=== PATIENT | male | born 1960 | race Caucasian/White ===

== ENCOUNTER 2017-01-12 09:00 | Emergency (ER) | payer OTHER ==
[~2017-01-12] VITALS: Ht 170.2 cm; Wt 63.6 kg
[~2017-01-12 09:00] MED LIST: AMOX1TAB16 PO
[2017-01-12] MEDS ORDERED: SODIUM CHLORIDE 0.9% 1,000 ML IV ONE (09:30)
[2017-01-12 10:26] LABS: HEMATOCRIT 32.1 % (41-53); HEMOGLOBIN 9.7 g/dL (13.5-17.5); MEAN CORPUSCULAR HGB CONC 30.3 G/dL (31.0-37.0); MEAN CORPUSCULAR VOLUME 76 fL (80-100); RED BLOOD CELL COUNT(AUTO) 4.24 MIL/uL (4.50-5.90); RED CELL DISTRIBUTION WIDTH 23.9 % (11.5-14.5); WHITE BLOOD COUNT (AUTO) 4.9 K/uL (4.5-11.0)
[2017-01-12 10:49] LABS: ALANINE AMINOTRANSFERASE 59 U/L (12-78); ALBUMIN 2.7 g/dL (3.4-5.0); ANION GAP 13 mmol/L (8-16); ASPARTATE AMINOTRANSFERASE 135 U/L (15-37); BILIRUBIN,TOTAL 0.5 mg/dL (0.1-1.0); CALCIUM, TOTAL 7.5 mg/dL (8.8-10.5); CARBON DIOXIDE 28 mmol/L (22-29); CHLORIDE 103 mmol/L (98-107); GLOMERULAR FILTR. RATE CALC > 60 mL/min (>60); SODIUM SERUM 144 mmol/L (136-145); TOTAL PROTEIN, SERUM 7.9 g/dL (6.4-8.2); UREA NITROGEN, BLOOD 5 mg/dL (7-18)
[2017-01-12 11:13] LABS: EOSINOPHILS % (MANUAL) 1 % (1-6); LYMPHOCYTES % (MANUAL) 30 % (22-44); TOTAL CELLS COUNTED 100
[2017-01-12 11:14] LABS: PLATELET COUNT (AUTO) 88 K/uL (150-450)
[2017-01-12] MEDS ORDERED: MAGNESIUM SULFATE 2 GM, MVI, ADULT NO.1 WITH VIT K 10 ML, THIAMINE HCL 100 MG, FOLIC AC... IV ONE ×5 (11:45)
[2017-01-12] MEDS ORDERED: POTASSIUM CHLORIDE 20 MEQ ER TABLET PO ONE (12:15)
[2017-01-12 16:35] VITALS: BP 105/63
== END 2017-01-12 17:59 | disposition home or self-care (01) ==
LOC: EEVIPCON 09:02 → EMS 09:02
DX: F10.229 Alcohol dependence with intoxication, unspecified (principal); E87.6 Hypokalemia; K21.9 Gastro-esophageal reflux disease without esophagitis; F17.210 Nicotine dependence, cigarettes, uncomplicated; Z91.030 Bee allergy status; Y90.8 Blood alcohol level of 240 mg/100 ml or more
CPT/HCPCS: 36415; 80053; 80307; 85025; 96361; 96365; 96366; 99285; 99406; G0480; J3411; J3475; J3490 ×2; J7030

== ENCOUNTER 2017-01-20 04:06 | Inpatient (IN) | payer OTHER ==
[2017-01-20] VITALS (10 sets, daily range): BP systolic 110–134; BP diastolic 53–89
[~2017-01-20] VITALS: Ht 177.8 cm; Wt 63.6 kg
[2017-01-20] MEDS ORDERED: LORazepam 2 MG/ML VIAL IVP ONE ×2 (10:30→12:30)
[2017-01-20] MEDS ORDERED: MAGNESIUM SULFATE 2 GM, MVI, ADULT NO.1 WITH VIT K 10 ML, THIAMINE HCL 100 MG, FOLIC AC... IV ONE ×5 (10:30)
[2017-01-20 11:05] LABS: APPEARANCE,URINE CLEAR (CLEAR); GLUCOSE, URINE (UA) NEGATIVE (NEGATIVE); KETONES,URINE NEGATIVE (NEGATIVE); LEUKOCYTE ESTERASE ,URINE NEGATIVE (NEGATIVE); OCCULT BLOOD,URINE NEGATIVE (NEGATIVE); PROTEIN,URINE POS 1+ (NEGATIVE)
[2017-01-20 11:06] LABS: ADD UA MICROSCOPIC YES
[2017-01-20 11:09] LABS: HEMATOCRIT 24.9 % (41-53); HEMOGLOBIN 7.4 g/dL (13.5-17.5); MEAN CORPUSCULAR HEMOGLOBIN 22.9 pg (26.0-34.0); MEAN CORPUSCULAR HGB CONC 29.9 G/dL (31.0-37.0); MEAN CORPUSCULAR VOLUME 77 fL (80-100); PLATELET COUNT (AUTO) 99 K/uL (150-450); RED BLOOD CELL COUNT(AUTO) 3.24 MIL/uL (4.50-5.90); RED CELL DISTRIBUTION WIDTH 23.8 % (11.5-14.5); WHITE BLOOD COUNT (AUTO) 6.8 K/uL (4.5-11.0)
[2017-01-20 11:21] LABS: B-TYPE NATRIURETIC PEPTIDE 131 pg/mL (0-100)
[2017-01-20 11:24] LABS: LYMPHOCYTES % (MANUAL) 5 % (22-44); TOTAL CELLS COUNTED 100
[2017-01-20 11:27] LABS: RBC,URINE None Seen /HPF (0-2); SQUAMOUS EPITHELIAL CELL,UR Rare /LPF (None Seen); WBC,URINE None Seen /HPF (0-5)
[2017-01-20 11:29] LABS: ANION GAP 10 mmol/L (8-16); CARBON DIOXIDE 29 mmol/L (22-29); CHLORIDE 100 mmol/L (98-107); CREATININE 0.58 mg/dL (0.60-1.30); GLOMERULAR FILTR. RATE CALC > 60 mL/min (>60); POTASSIUM 3.1 mmol/L (3.5-5.1); SODIUM SERUM 139 mmol/L (136-145); UREA NITROGEN, BLOOD 6 mg/dL (7-18)
[2017-01-20 11:30] LABS: ALANINE AMINOTRANSFERASE 47 U/L (12-78); ALBUMIN 2.5 g/dL (3.4-5.0); ASPARTATE AMINOTRANSFERASE 105 U/L (15-37); BILIRUBIN,TOTAL 0.7 mg/dL (0.1-1.0); CALCIUM, TOTAL 7.1 mg/dL (8.8-10.5); CREATINE KINASE, TOTAL 335 U/L (39-308)
[2017-01-20 11:41] LABS: CREATINE KINASE MB 1.7 ng/mL (0-5)
[2017-01-20] MEDS ORDERED: PANTOPRAZOLE SODIUM 40 MG/VIAL IVP ONE (12:00)
[2017-01-20] MEDS ORDERED: ALBUTEROL SULFATE 2.5 MG/0.5 ML NEB SOLUTION NEB PRN (13:30)
[2017-01-20] MEDS ORDERED: MAGNESIUM OXIDE 400 MG TABLET PO PRN (13:30)
[2017-01-20] MEDS ORDERED: ONDANSETRON HCL 4 MG/2 ML VIAL IVP PRN (13:30)
[2017-01-20] MEDS ORDERED: MAGNESIUM SULFATE 4 GM/WATER 100 ML IV PRN (13:30)
[2017-01-20] MEDS ORDERED: POTASSIUM CHL 10 MEQ/WATER 50 ML IV PRN (13:30)
[2017-01-20] MEDS ORDERED: SODIUM CHLORIDE 0.9% 1,000 ML IV ONE (13:30)
[2017-01-20] MEDS ORDERED: SODIUM CHLORIDE 0.9% 250 ML IV ONE (13:32)
[2017-01-20] MEDS ORDERED: MAGNESIUM SULFATE 4 GM/WATER 100 ML IV ONE (14:15)
[2017-01-20] MEDS: POTASSIUM CHLORIDE 20 MEQ ER TABLET PO PRN ×2 (15:39→22:37)
[2017-01-20] MEDS: ACETAMINOPHEN 325 MG TABLET PO PRN (16:16)
[2017-01-20] MEDS: DOCUSATE SODIUM 100 MG CAPSULE PO SCH (19:52)
[2017-01-20] MEDS: LORazepam 2 MG/ML VIAL IVP PRN ×2 (20:43→21:07)
[2017-01-21] MEDS: ACETAMINOPHEN 325 MG TABLET PO PRN (01:34)
[2017-01-21 04:29] VITALS: BP 104/63
[2017-01-21] MEDS: LORazepam 2 MG/ML VIAL IVP PRN ×3 (05:34→19:45)
[2017-01-21 06:08] LABS: HEMATOCRIT 24.6 % (41-53); HEMOGLOBIN 7.5 g/dL (13.5-17.5); MEAN CORPUSCULAR HEMOGLOBIN 23.6 pg (26.0-34.0); MEAN CORPUSCULAR HGB CONC 30.3 G/dL (31.0-37.0); MEAN CORPUSCULAR VOLUME 78 fL (80-100); PLATELET COUNT (AUTO) 94 K/uL (150-450); RED BLOOD CELL COUNT(AUTO) 3.16 MIL/uL (4.50-5.90); RED CELL DISTRIBUTION WIDTH 23.8 % (11.5-14.5); WHITE BLOOD COUNT (AUTO) 5.6 K/uL (4.5-11.0)
[2017-01-21 07:13] LABS: ALANINE AMINOTRANSFERASE 41 U/L (12-78); ALBUMIN 2.3 g/dL (3.4-5.0); ANION GAP 9 mmol/L (8-16); ASPARTATE AMINOTRANSFERASE 132 U/L (15-37); BILIRUBIN,TOTAL 0.8 mg/dL (0.1-1.0); CALCIUM, TOTAL 6.6 mg/dL (8.8-10.5); CARBON DIOXIDE 27 mmol/L (22-29); CHLORIDE 100 mmol/L (98-107); CREATININE 0.52 mg/dL (0.60-1.30); GLOMERULAR FILTR. RATE CALC > 60 mL/min (>60); POTASSIUM 3.4 mmol/L (3.5-5.1); SODIUM SERUM 136 mmol/L (136-145); TOTAL PROTEIN, SERUM 6.6 g/dL (6.4-8.2); UREA NITROGEN, BLOOD 4 mg/dL (7-18)
[2017-01-21] MEDS: DOCUSATE SODIUM 100 MG CAPSULE PO SCH ×3 (08:40→19:45)
[2017-01-21] MEDS: MULTIVITAMINS WITH MINERALS, THERAPEUTIC TABLET PO SCH (08:40)
[2017-01-21] MEDS: PANTOPRAZOLE SODIUM 40 MG/VIAL IVP SCH (08:40)
[2017-01-21 10:28] LABS: BAND NEUTROPHILS % (MANUAL) 2 % (1-5); LYMPHOCYTES % (MANUAL) 8 % (22-44); TOTAL CELLS COUNTED 100
[2017-01-21 10:29] LABS: RBC MORPHOLOGY COMMENT ABNORMAL R
[2017-01-21] MEDS: POTASSIUM CHLORIDE 20 MEQ ER TABLET PO PRN (11:09)
[2017-01-21] MEDS: ChlordiazePOXIDE HCL 25 MG CAPSULE PO SCH ×2 (11:09→19:45)
[2017-01-21 11:57] VITALS: BP 126/78
[2017-01-21] MEDS: MAGNESIUM SULFATE 2 GM in DEXTROSE 5%-WATER 50 ML IV PRN (12:11)
[2017-01-21 15:44] LABS: MAGNESIUM 1.2 mg/dL (1.80-2.40)
[2017-01-21 15:55] VITALS: BP 106/57
[2017-01-21] MEDS ORDERED: 0.9% SODIUM CHLORIDE 10 ML SYRINGE IVP PRN (17:30)
[2017-01-21] MEDS ORDERED: LOPERAMIDE HCL 2 MG CAPSULE PO PRN (19:15)
[2017-01-21 20:03] VITALS: BP 128/89
[2017-01-21 23:55] VITALS: BP 105/79
[2017-01-22] MEDS: LORazepam 2 MG/ML VIAL IVP PRN ×4 (00:08→22:55)
[2017-01-22 04:47] VITALS: BP 123/82
[2017-01-22 07:31] VITALS: BP 118/73
[2017-01-22] MEDS: ChlordiazePOXIDE HCL 25 MG CAPSULE PO SCH ×2 (08:17→19:55)
[2017-01-22] MEDS: PANTOPRAZOLE SODIUM 40 MG/VIAL IVP SCH (08:17)
[2017-01-22] MEDS: MAGNESIUM SULFATE 2 GM in DEXTROSE 5%-WATER 50 ML IV PRN (08:17)
[2017-01-22] MEDS: DOCUSATE SODIUM 100 MG CAPSULE PO SCH ×2 (08:17→19:56)
[2017-01-22] MEDS: MULTIVITAMINS WITH MINERALS, THERAPEUTIC TABLET PO SCH (08:17)
[2017-01-22 12:36] VITALS: BP 125/75
[2017-01-22 16:09] VITALS: BP 121/73
[2017-01-22 19:16] VITALS: BP 114/85
[2017-01-22] MEDS: ACETAMINOPHEN 325 MG TABLET PO PRN (19:55)
[2017-01-22 23:07] VITALS: BP 126/55
[2017-01-23 04:00] VITALS: BP 113/71
[2017-01-23 07:39] VITALS: BP 116/75
[2017-01-23] MEDS: DOCUSATE SODIUM 100 MG CAPSULE PO SCH (08:57)
[2017-01-23] MEDS: PANTOPRAZOLE SODIUM 40 MG/VIAL IVP SCH (08:57)
[2017-01-23] MEDS: ChlordiazePOXIDE HCL 25 MG CAPSULE PO SCH (08:57)
[2017-01-23] MEDS: MULTIVITAMINS WITH MINERALS, THERAPEUTIC TABLET PO SCH (08:57)
[2017-01-23 12:47] VITALS: BP 142/76
[2017-01-23] MEDS ORDERED: MAGOX PO (15:00)
[2017-01-23] MEDS ORDERED: POTA99TA4 PO (15:01)
[2017-01-23] MEDS ORDERED: MULT-1203 PO (15:02)
[2017-01-23 15:12] VITALS: BP 122/79
== END 2017-01-23 17:15 | disposition home or self-care (01) | DRG 775 ==
LOC: EMS 09:44 → 6N 13:57
PROVIDERS: ADMIT Internal Medicine; ATTEND Internal Medicine
PROC: 30233N1 Transfusion of Nonautologous Red Blood Cells into Peripheral Vein, Percutaneous Approach (ICD-10-PCS; principal; 2017-01-20)
DX: F10.239 Alcohol dependence with withdrawal, unspecified (principal); E43 Unspecified severe protein-calorie malnutrition; E87.8 Other disorders of electrolyte and fluid balance, not elsewhere classified; F10.229 Alcohol dependence with intoxication, unspecified; D50.9 Iron deficiency anemia, unspecified; D63.8 Anemia in other chronic diseases classified elsewhere; F20.9 Schizophrenia, unspecified; F31.9 Bipolar disorder, unspecified; K21.9 Gastro-esophageal reflux disease without esophagitis; F17.210 Nicotine dependence, cigarettes, uncomplicated; Z91.030 Bee allergy status; F19.10 Other psychoactive substance abuse, uncomplicated; R74.0 Nonspecific elevation of levels of transaminase and lactic acid dehydrogenase [LDH]; Z68.20 Body mass index [BMI] 20.0-20.9, adult; Z59.0 Homelessness; Z91.19 Patient's noncompliance with other medical treatment and regimen; Z79.899 Other long term (current) drug therapy; Y90.2 Blood alcohol level of 40-59 mg/100 ml
CPT/HCPCS: 82271; 83735; 84132; 86850; 86900; 86901; 86920; 93005; 96361; 96365; 96366; 96375; 97162; 99285; C9113; G0480; J2060; J3411; J3475; J3490; J7030; J7050; J7060; P9016

== ENCOUNTER 2017-02-25 21:08 | Inpatient (IN) | payer OTHER ==
[~2017-02-25] VITALS: Ht 177.8 cm; Wt 59.0 kg
[~2017-02-25 21:08] MED LIST changes: -AMOX1TAB16 PO; +MAGOX PO; +MULT-1203 PO; +POTA99TA4 PO
[2017-02-25 21:42] LABS: HEMATOCRIT 27.1 % (41-53); HEMOGLOBIN 8.1 g/dL (13.5-17.5); MEAN CORPUSCULAR HEMOGLOBIN 23.3 pg (26.0-34.0); MEAN CORPUSCULAR VOLUME 78 fL (80-100); PLATELET COUNT (AUTO) 132 K/uL (150-450); RED BLOOD CELL COUNT(AUTO) 3.49 MIL/uL (4.50-5.90); RED CELL DISTRIBUTION WIDTH 20.5 % (11.5-14.5); WHITE BLOOD COUNT (AUTO) 3.3 K/uL (4.5-11.0)
[2017-02-25 21:43] LABS: ANION GAP 11 mmol/L (8-16); CALCIUM, TOTAL 7.2 mg/dL (8.8-10.5); CARBON DIOXIDE 27 mmol/L (22-29); CHLORIDE 104 mmol/L (98-107); CREATININE 0.84 mg/dL (0.60-1.30); GLOMERULAR FILTR. RATE CALC > 60 mL/min (>60); POTASSIUM 3.2 mmol/L (3.5-5.1); SODIUM SERUM 142 mmol/L (136-145); UREA NITROGEN, BLOOD 10 mg/dL (7-18)
[2017-02-25 21:49] LABS: ALANINE AMINOTRANSFERASE 46 U/L (12-78); ALBUMIN 2.8 g/dL (3.4-5.0); ASPARTATE AMINOTRANSFERASE 126 U/L (15-37); BILIRUBIN,TOTAL 0.3 mg/dL (0.1-1.0); TOTAL PROTEIN, SERUM 7.2 g/dL (6.4-8.2)
[2017-02-25 22:13] LABS: RBC MORPHOLOGY COMMENT ABNORMAL R
[2017-02-25 22:18] LABS: BASOPHILS % (MANUAL) 3 % (0-2); EOSINOPHILS % (MANUAL) 1 % (1-6); LYMPHOCYTES % (MANUAL) 47 % (22-44); TOTAL CELLS COUNTED 100
[2017-02-26] VITALS (7 sets, daily range): BP systolic 104–125; BP diastolic 56–78
[2017-02-26] MEDS ORDERED: OXYGEN THERAPY IH SCH
[2017-02-26] MEDS ORDERED: 0.9% SODIUM CHLORIDE 10 ML SYRINGE IVP PRN
[2017-02-26] MEDS ORDERED: MAGNESIUM SULFATE 2 GM, MVI, ADULT NO.1 WITH VIT K 10 ML, THIAMINE HCL 100 MG, FOLIC AC... IV ONE ×5 (01:30)
[2017-02-26] MEDS ORDERED: MAGNESIUM SULFATE 2 GM in DEXTROSE 5%-WATER 50 ML IV PRN (01:45)
[2017-02-26] MEDS ORDERED: POTASSIUM CHLORIDE 20 MEQ ER TABLET PO PRN (01:45)
[2017-02-26] MEDS ORDERED: ONDANSETRON HCL 4 MG/2 ML VIAL IVP PRN ×2 (01:45)
[2017-02-26] MEDS ORDERED: ZOLPIDEM TARTRATE 5 MG TABLET PO PRN (01:45)
[2017-02-26] MEDS ORDERED: ACETAMINOPHEN 325 MG TABLET PO PRN ×2 (01:45)
[2017-02-26] MEDS ORDERED: BISACODYL 10 MG RECTAL RECTAL SUPPOSITORY PR PRN (01:45)
[2017-02-26] MEDS ORDERED: MAGNESIUM HYDROXIDE SUSPENSION 30 ML UDCUP PO PRN (01:45)
[2017-02-26] MEDS: IPRATROPIUM BROMIDE 0.5 MG/2.5 ML NEB SOLUTION NEB SCH ×4 (02:56→20:22)
[2017-02-26] MEDS: ALBUTEROL SULFATE 2.5 MG/0.5 ML NEB SOLUTION NEB SCH ×4 (02:56→20:22)
[2017-02-26] MEDS: POTASSIUM CHLORIDE 20 MEQ ER TABLET PO PRN ×2 (03:08→14:38)
[2017-02-26] MEDS: HYDROCODONE/ACETAMINOPHEN 5-325 MG TABLET PO PRN ×3 (03:15→20:02)
[2017-02-26] MEDS: PANTOPRAZOLE SODIUM 40 MG DR TABLET PO SCH (08:15)
[2017-02-26] MEDS: MethylPREDNISolone SOD SUCC 125 MG/2 ML VIAL IVP SCH ×2 (08:16→16:29)
[2017-02-26] MEDS: HEPARIN SODIUM,PORCINE 5,000 UNITS/ML VIAL SQ SCH ×2 (08:16→20:23)
[2017-02-26] MEDS ORDERED: IBUPROFEN 400 MG TABLET PO PRN (13:15)
[2017-02-26] MEDS ORDERED: KDUR20 PO (13:17)
[2017-02-26] MEDS ORDERED: LORazepam 2 MG/ML VIAL IM PRN (13:30)
[2017-02-26] MEDS ORDERED: LORazepam 2 MG/ML VIAL IVP PRN (14:45)
[2017-02-26 21:42] LABS: GLUCOSE, URINE (UA) 250 mg/dL (NEGATIVE); KETONES,URINE NEGATIVE (NEGATIVE); LEUKOCYTE ESTERASE ,URINE NEGATIVE (NEGATIVE); OCCULT BLOOD,URINE NEGATIVE (NEGATIVE); PROTEIN,URINE TRACE (NEGATIVE)
[2017-02-26 21:46] LABS: APPEARANCE,URINE CLEAR (CLEAR)
[2017-02-26 21:47] LABS: ADD UA MICROSCOPIC YES; RBC,URINE 0-2 /HPF (0-2); SQUAMOUS EPITHELIAL CELL,UR Rare /LPF (None Seen); WBC,URINE 0-2 /HPF (0-5)
[2017-02-27] MEDS: MethylPREDNISolone SOD SUCC 125 MG/2 ML VIAL IVP SCH ×3 (01:10→16:00)
[2017-02-27 04:19] VITALS: BP 117/87
[2017-02-27 05:49] LABS: HEMATOCRIT 27.7 % (41-53); HEMOGLOBIN 8.2 g/dL (13.5-17.5); MEAN CORPUSCULAR HEMOGLOBIN 22.7 pg (26.0-34.0); MEAN CORPUSCULAR HGB CONC 29.6 G/dL (31.0-37.0); MEAN CORPUSCULAR VOLUME 77 fL (80-100); PLATELET COUNT (AUTO) 108 K/uL (150-450); RED BLOOD CELL COUNT(AUTO) 3.61 MIL/uL (4.50-5.90); RED CELL DISTRIBUTION WIDTH 20.1 % (11.5-14.5); WHITE BLOOD COUNT (AUTO) 4.4 K/uL (4.5-11.0)
[2017-02-27 06:52] LABS: HEMOGLOBIN A1C 5.1 % (4.5-6.2)
[2017-02-27 07:23] LABS: ALANINE AMINOTRANSFERASE 38 U/L (12-78); ALBUMIN 2.8 g/dL (3.4-5.0); ANION GAP 6 mmol/L (8-16); ASPARTATE AMINOTRANSFERASE 56 U/L (15-37); BILIRUBIN,TOTAL 0.8 mg/dL (0.1-1.0); CALCIUM, TOTAL 7.9 mg/dL (8.8-10.5); CARBON DIOXIDE 30 mmol/L (22-29); CHLORIDE 97 mmol/L (98-107); CHOL/HDL RATIO 1.9 (4.2-7.3); CREATININE 0.69 mg/dL (0.60-1.30); GLOMERULAR FILTR. RATE CALC > 60 mL/min (>60); POTASSIUM 4.4 mmol/L (3.5-5.1); SODIUM SERUM 133 mmol/L (136-145); THYROID STIMULATING HORMONE 1.15 uIU/mL (0.36-3.74); TOTAL PROTEIN, SERUM 7.3 g/dL (6.4-8.2); UREA NITROGEN, BLOOD 7 mg/dL (7-18)
[2017-02-27 07:39] VITALS: BP 111/80
[2017-02-27] MEDS: HEPARIN SODIUM,PORCINE 5,000 UNITS/ML VIAL SQ SCH ×2 (08:15→21:00)
[2017-02-27] MEDS: PANTOPRAZOLE SODIUM 40 MG DR TABLET PO SCH (08:15)
[2017-02-27] MEDS: ALBUTEROL SULFATE 2.5 MG/0.5 ML NEB SOLUTION NEB SCH ×3 (08:42→20:23)
[2017-02-27] MEDS: IPRATROPIUM BROMIDE 0.5 MG/2.5 ML NEB SOLUTION NEB SCH ×3 (08:42→20:22)
[2017-02-27 09:57] LABS: BAND NEUTROPHILS % (MANUAL) 1 % (1-5); LYMPHOCYTES % (MANUAL) 28 % (22-44); TOTAL CELLS COUNTED 100
[2017-02-27 10:00] LABS: RBC MORPHOLOGY COMMENT ABNORMAL R
[2017-02-27 11:04] VITALS: BP 103/66
[2017-02-27] MEDS: HYDROCODONE/ACETAMINOPHEN 5-325 MG TABLET PO PRN (12:25)
[2017-02-27] MEDS ORDERED: LORazepam 2 MG/ML VIAL IM PRN (14:00)
[2017-02-27] MEDS: LORazepam 2 MG/ML VIAL IVP PRN ×3 (14:38→22:15)
[2017-02-27 15:05] VITALS: BP 122/60
[2017-02-27] MEDS: ChlordiazePOXIDE HCL 25 MG CAPSULE PO SCH (16:39)
[2017-02-27] MEDS ORDERED: DiphenhydrAMINE HCL 50 MG/ML VIAL IVP ONE (17:30)
[2017-02-27] MEDS ORDERED: HALOPERIDOL LACTATE 5 MG/ML VIAL IM ONE (17:30)
[2017-02-27] MEDS ORDERED: LORazepam 2 MG/ML VIAL IVP ONE (17:30)
[2017-02-27 20:17] VITALS: BP 118/63
[2017-02-28] VITALS (8 sets, daily range): BP systolic 105–131; BP diastolic 69–90
[2017-02-28] MEDS: MethylPREDNISolone SOD SUCC 125 MG/2 ML VIAL IVP SCH ×4 (00:25→23:22)
[2017-02-28] MEDS: ChlordiazePOXIDE HCL 25 MG CAPSULE PO SCH ×5 (00:26→23:22)
[2017-02-28] MEDS: LORazepam 2 MG/ML VIAL IVP PRN ×6 (00:26→21:46)
[2017-02-28] MEDS: HEPARIN SODIUM,PORCINE 5,000 UNITS/ML VIAL SQ SCH ×2 (08:22→21:46)
[2017-02-28] MEDS: PANTOPRAZOLE SODIUM 40 MG DR TABLET PO SCH (08:22)
[2017-02-28] MEDS: ALBUTEROL SULFATE 2.5 MG/0.5 ML NEB SOLUTION NEB SCH ×3 (09:00→20:53)
[2017-02-28] MEDS: IPRATROPIUM BROMIDE 0.5 MG/2.5 ML NEB SOLUTION NEB SCH ×3 (09:00→20:53)
[2017-02-28] MEDS ORDERED: SODIUM CHLORIDE 0.9% 1,000 ML IV ONE (09:40)
[2017-02-28] MEDS: SODIUM CHLORIDE 0.9% 1,000 ML IV SCH ×2 (09:46→18:41)
[2017-02-28] MEDS ORDERED: IOVERSOL 350 MG/ML 100 ML VIAL ONE (18:27)
[2017-02-28] MEDS ORDERED: SODIUM CHLORIDE 0.9% 100 ML ONE (18:28)
[2017-02-28 18:33] LABS: HEMATOCRIT 28.6 % (41-53); HEMOGLOBIN 8.4 g/dL (13.5-17.5); MEAN CORPUSCULAR HEMOGLOBIN 22.6 pg (26.0-34.0); MEAN CORPUSCULAR HGB CONC 29.3 G/dL (31.0-37.0); MEAN CORPUSCULAR VOLUME 77 fL (80-100); PLATELET COUNT (AUTO) 136 K/uL (150-450); RED BLOOD CELL COUNT(AUTO) 3.72 MIL/uL (4.50-5.90); RED CELL DISTRIBUTION WIDTH 20.8 % (11.5-14.5); WHITE BLOOD COUNT (AUTO) 7.9 K/uL (4.5-11.0)
[2017-02-28] MEDS: ACETAMINOPHEN 325 MG TABLET PO PRN (18:34)
[2017-02-28 18:50] LABS: CALCIUM, TOTAL 9.6 mg/dL (8.8-10.5); CREATININE 1.32 mg/dL (0.60-1.30); POTASSIUM 4.2 mmol/L (3.5-5.1)
[2017-02-28 18:56] LABS: ALBUMIN 3.1 g/dL (3.4-5.0); TOTAL PROTEIN, SERUM 7.4 g/dL (6.4-8.2)
[2017-02-28 19:06] LABS: BAND NEUTROPHILS % (MANUAL) 3 % (1-5); LYMPHOCYTES % (MANUAL) 6 % (22-44); RBC MORPHOLOGY COMMENT ABNORMAL RBC MORPH; TOTAL CELLS COUNTED 100
[2017-02-28 20:00] LABS: ABG A-A DIFF O2 44.3 mmHg (10-20.0); ABG BASE EXCESS 1.4 mmol/L (-2.0-3.0); ABG OXYHEMOGLOBIN 91.6 % (94.0-100.0); ABG PCO2 30 mmHg (35-45); ABG PH 7.525 (7.35-7.450); TEMPERATURE, FAHRENHEIT, BG 98.6 FAHREN (96.0-98.6)
[2017-02-28 20:01] LABS: ALLEN TEST, BLOOD GAS Positive
[2017-03-01] MEDS: LORazepam 2 MG/ML VIAL IVP PRN ×4 (00:29→20:42)
[2017-03-01] MEDS: HYDROCODONE/ACETAMINOPHEN 5-325 MG TABLET PO PRN (02:43)
[2017-03-01] MEDS: SODIUM CHLORIDE 0.9% 1,000 ML IV SCH ×3 (02:52→22:54)
[2017-03-01 04:47] VITALS: BP 133/82
[2017-03-01] MEDS: ACETAMINOPHEN 325 MG TABLET PO PRN (04:53)
[2017-03-01] MEDS: ChlordiazePOXIDE HCL 25 MG CAPSULE PO SCH ×4 (04:53→23:59)
[2017-03-01 06:44] LABS: EOSINOPHILS % (AUTO) 0.3 % (1.0-6.0); HEMATOCRIT 26.2 % (41-53); HEMOGLOBIN 7.7 g/dL (13.5-17.5); LYMPHOCYTES # (AUTO) 0.5 K/uL (1.0-4.8); LYMPHOCYTES % (AUTO) 8.6 % (22.0-44.0); MEAN CORPUSCULAR HEMOGLOBIN 22.9 pg (26.0-34.0); MEAN CORPUSCULAR HGB CONC 29.4 G/dL (31.0-37.0); MEAN CORPUSCULAR VOLUME 78 fL (80-100); MONOCYTES # (AUTO) 0.2 K/uL (0.1-1.0); MONOCYTES % (AUTO) 3.8 % (2.0-9.0); NEUTROPHILS # (AUTO) 4.7 K/uL (1.8-7.7); PLATELET COUNT (AUTO) 119 K/uL (150-450); RED BLOOD CELL COUNT(AUTO) 3.37 MIL/uL (4.50-5.90); RED CELL DISTRIBUTION WIDTH 20.6 % (11.5-14.5); WHITE BLOOD COUNT (AUTO) 5.4 K/uL (4.5-11.0)
[2017-03-01 07:18] VITALS: BP 120/81
[2017-03-01 07:20] LABS: NEUTROPHILS % (AUTO) 87.3 % (40.0-70.0)
[2017-03-01 07:30] LABS: ALANINE AMINOTRANSFERASE 51 U/L (12-78); ALBUMIN 2.9 g/dL (3.4-5.0); ANION GAP 16 mmol/L (8-16); ASPARTATE AMINOTRANSFERASE 86 U/L (15-37); BILIRUBIN,TOTAL 1.2 mg/dL (0.1-1.0); CALCIUM, TOTAL 8.9 mg/dL (8.8-10.5); CARBON DIOXIDE 20 mmol/L (22-29); CHLORIDE 105 mmol/L (98-107); CREATININE 0.88 mg/dL (0.60-1.30); GLOMERULAR FILTR. RATE CALC > 60 mL/min (>60); POTASSIUM 3.7 mmol/L (3.5-5.1); SODIUM SERUM 141 mmol/L (136-145); TOTAL PROTEIN, SERUM 6.8 g/dL (6.4-8.2); UREA NITROGEN, BLOOD 30 mg/dL (7-18)
[2017-03-01 07:49] LABS: RBC MORPHOLOGY COMMENT ABNORMAL RBC MORPH
[2017-03-01] MEDS: HEPARIN SODIUM,PORCINE 5,000 UNITS/ML VIAL SQ SCH (09:05)
[2017-03-01] MEDS: MethylPREDNISolone SOD SUCC 125 MG/2 ML VIAL IVP SCH ×3 (09:06→23:59)
[2017-03-01] MEDS: PANTOPRAZOLE SODIUM 40 MG DR TABLET PO SCH (09:06)
[2017-03-01] MEDS: ALBUTEROL SULFATE 2.5 MG/0.5 ML NEB SOLUTION NEB SCH ×3 (10:01→20:57)
[2017-03-01] MEDS: IPRATROPIUM BROMIDE 0.5 MG/2.5 ML NEB SOLUTION NEB SCH ×3 (10:01→20:57)
[2017-03-01 11:18] VITALS: BP 133/81
[2017-03-01 15:36] VITALS: BP 126/74
[2017-03-01] MEDS ORDERED: LORazepam 80 MG in DEXTROSE 5%-WATER 40 ML IV PRN ×4 (18:30)
[2017-03-01 18:55] LABS: TROPONIN I < 0.02 ng/mL (0.00-0.05)
[2017-03-01 19:10] LABS: CREATINE KINASE MB 2.8 ng/mL (0-5)
[2017-03-01 19:12] LABS: AMMONIA 21 umol/L (11-32)
[2017-03-01 19:15] LABS: CREATINE KINASE, TOTAL 1140 U/L (39-308)
[2017-03-01 19:50] VITALS: BP 124/79
[2017-03-01] MEDS: IRON DEXTRAN COMPLEX 100 MG in SODIUM CHLORIDE 0.9% 100 ML IV SCH (20:35)
[2017-03-01 22:05] LABS: APPEARANCE,URINE CLEAR (CLEAR); GLUCOSE, URINE (UA) NEGATIVE (NEGATIVE); KETONES,URINE >=80 mg/dL (NEGATIVE); LEUKOCYTE ESTERASE ,URINE NEGATIVE (NEGATIVE); OCCULT BLOOD,URINE NEGATIVE (NEGATIVE); PH,URINE 6.5 (5.0-8.0); PROTEIN,URINE NEGATIVE (NEGATIVE)
[2017-03-01 22:10] LABS: ADD UA MICROSCOPIC NO
[2017-03-01 22:20] VITALS: BP 130/29
[2017-03-02] VITALS: BP 133/80
[2017-03-02 04:00] VITALS: BP 136/91
[2017-03-02] MEDS: ChlordiazePOXIDE HCL 25 MG CAPSULE PO SCH ×4 (05:26→23:50)
[2017-03-02 06:13] LABS: ALANINE AMINOTRANSFERASE 49 U/L (12-78); ALBUMIN 2.9 g/dL (3.4-5.0); ANION GAP 8 mmol/L (8-16); ASPARTATE AMINOTRANSFERASE 62 U/L (15-37); BILIRUBIN,TOTAL 0.6 mg/dL (0.1-1.0); CALCIUM, TOTAL 8.2 mg/dL (8.8-10.5); CARBON DIOXIDE 26 mmol/L (22-29); CHLORIDE 108 mmol/L (98-107); CREATININE 0.71 mg/dL (0.60-1.30); GLOMERULAR FILTR. RATE CALC > 60 mL/min (>60); SODIUM SERUM 142 mmol/L (136-145); TOTAL PROTEIN, SERUM 6.8 g/dL (6.4-8.2); UREA NITROGEN, BLOOD 19 mg/dL (7-18)
[2017-03-02 06:58] LABS: EOSINOPHILS % (AUTO) 0 % (1.0-6.0); HEMATOCRIT 25.4 % (41-53); HEMOGLOBIN 7.4 g/dL (13.5-17.5); LYMPHOCYTES # (AUTO) 0.2 K/uL (1.0-4.8); LYMPHOCYTES % (AUTO) 5.2 % (22.0-44.0); MEAN CORPUSCULAR HGB CONC 29.3 G/dL (31.0-37.0); MEAN CORPUSCULAR VOLUME 79 fL (80-100); MONOCYTES # (AUTO) 0.2 K/uL (0.1-1.0); NEUTROPHILS % (AUTO) 89.8 % (40.0-70.0); PLATELET COUNT (AUTO) 137 K/uL (150-450); RED BLOOD CELL COUNT(AUTO) 3.24 MIL/uL (4.50-5.90); RED CELL DISTRIBUTION WIDTH 20.8 % (11.5-14.5); WHITE BLOOD COUNT (AUTO) 4.5 K/uL (4.5-11.0)
[2017-03-02 08:00] VITALS: BP 134/81
[2017-03-02] MEDS: ALBUTEROL SULFATE 2.5 MG/0.5 ML NEB SOLUTION NEB SCH ×3 (08:11→20:07)
[2017-03-02] MEDS: IPRATROPIUM BROMIDE 0.5 MG/2.5 ML NEB SOLUTION NEB SCH ×3 (08:11→20:07)
[2017-03-02 08:31] LABS: RBC MORPHOLOGY COMMENT ABNORMAL RBC MORPH
[2017-03-02] MEDS: PANTOPRAZOLE SODIUM 40 MG DR TABLET PO SCH (08:47)
[2017-03-02] MEDS: MethylPREDNISolone SOD SUCC 125 MG/2 ML VIAL IVP SCH ×3 (08:47→23:50)
[2017-03-02] MEDS: MAGNESIUM SULFATE 4 GM/WATER 100 ML IV PRN (10:31)
[2017-03-02 12:00] VITALS: BP 137/88
[2017-03-02] MEDS: SODIUM CHLORIDE 0.9% 1,000 ML IV SCH ×2 (13:33→21:40)
[2017-03-02 16:00] VITALS: BP 117/74
[2017-03-02 20:00] VITALS: BP 123/90
[2017-03-02] MEDS: IRON DEXTRAN COMPLEX 100 MG in SODIUM CHLORIDE 0.9% 100 ML IV SCH (21:39)
[2017-03-03] VITALS (8 sets, daily range): BP systolic 124–135; BP diastolic 78–88
[2017-03-03 05:39] LABS: ALANINE AMINOTRANSFERASE 64 U/L (12-78); ALBUMIN 2.6 g/dL (3.4-5.0); ANION GAP 7 mmol/L (8-16); ASPARTATE AMINOTRANSFERASE 75 U/L (15-37); BILIRUBIN,TOTAL 0.4 mg/dL (0.1-1.0); CARBON DIOXIDE 27 mmol/L (22-29); CHLORIDE 100 mmol/L (98-107); CREATININE 0.66 mg/dL (0.60-1.30); GLOMERULAR FILTR. RATE CALC > 60 mL/min (>60); POTASSIUM 3.4 mmol/L (3.5-5.1); SODIUM SERUM 134 mmol/L (136-145); TOTAL PROTEIN, SERUM 6.2 g/dL (6.4-8.2); UREA NITROGEN, BLOOD 10 mg/dL (7-18)
[2017-03-03] MEDS: HYDROCODONE/ACETAMINOPHEN 5-325 MG TABLET PO PRN (06:19)
[2017-03-03] MEDS: ChlordiazePOXIDE HCL 25 MG CAPSULE PO SCH ×4 (06:19→23:29)
[2017-03-03 06:26] LABS: EOSINOPHILS % (AUTO) 0.4 % (1.0-6.0); HEMATOCRIT 25.3 % (41-53); HEMOGLOBIN 7.2 g/dL (13.5-17.5); LYMPHOCYTES # (AUTO) 0.3 K/uL (1.0-4.8); LYMPHOCYTES % (AUTO) 5.2 % (22.0-44.0); MEAN CORPUSCULAR HEMOGLOBIN 22.5 pg (26.0-34.0); MEAN CORPUSCULAR HGB CONC 28.5 G/dL (31.0-37.0); MEAN CORPUSCULAR VOLUME 79 fL (80-100); MONOCYTES # (AUTO) 0.3 K/uL (0.1-1.0); MONOCYTES % (AUTO) 5.2 % (2.0-9.0); NEUTROPHILS # (AUTO) 5.1 K/uL (1.8-7.7); PLATELET COUNT (AUTO) 154 K/uL (150-450); RED BLOOD CELL COUNT(AUTO) 3.21 MIL/uL (4.50-5.90); RED CELL DISTRIBUTION WIDTH 20.2 % (11.5-14.5); WHITE BLOOD COUNT (AUTO) 5.7 K/uL (4.5-11.0)
[2017-03-03 06:54] LABS: NEUTROPHILS % (AUTO) 89.2 % (40.0-70.0)
[2017-03-03] MEDS: ALBUTEROL SULFATE 2.5 MG/0.5 ML NEB SOLUTION NEB SCH ×3 (08:00→21:14)
[2017-03-03] MEDS: IPRATROPIUM BROMIDE 0.5 MG/2.5 ML NEB SOLUTION NEB SCH ×3 (08:00→21:14)
[2017-03-03] MEDS: MethylPREDNISolone SOD SUCC 125 MG/2 ML VIAL IVP SCH ×3 (08:46→23:29)
[2017-03-03] MEDS: PANTOPRAZOLE SODIUM 40 MG DR TABLET PO SCH (08:46)
[2017-03-03] MEDS: SODIUM CHLORIDE 0.9% 1,000 ML IV SCH ×2 (08:46→18:16)
[2017-03-03] MEDS: POTASSIUM CHLORIDE 20 MEQ ER TABLET PO PRN (09:54)
[2017-03-03 14:33] LABS: POTASSIUM 3.8 mmol/L (3.5-5.1)
[2017-03-03] MEDS ORDERED: THIAMINE HCL 100 MG TABLET PO ONE (17:45)
[2017-03-03] MEDS ORDERED: FOLIC ACID 1 MG TABLET PO ONE (17:45)
[2017-03-03 17:55] LABS: MAGNESIUM 1.1 mg/dL (1.80-2.40)
[2017-03-03] MEDS: IRON DEXTRAN COMPLEX 100 MG in SODIUM CHLORIDE 0.9% 100 ML IV SCH (20:22)
[2017-03-03] MEDS: MAGNESIUM SULFATE 4 GM/WATER 100 ML IV PRN (21:49)
[2017-03-04] VITALS (7 sets, daily range): BP systolic 120–142; BP diastolic 57–89
[2017-03-04] MEDS: SODIUM CHLORIDE 0.9% 1,000 ML IV SCH ×3 (04:47→22:48)
[2017-03-04 05:04] LABS: HEMOGLOBIN 8.1 g/dL (13.5-17.5); MEAN CORPUSCULAR HEMOGLOBIN 22.7 pg (26.0-34.0); MEAN CORPUSCULAR HGB CONC 28.9 G/dL (31.0-37.0); MEAN CORPUSCULAR VOLUME 78 fL (80-100); PLATELET COUNT (AUTO) 188 K/uL (150-450); RED BLOOD CELL COUNT(AUTO) 3.57 MIL/uL (4.50-5.90); RED CELL DISTRIBUTION WIDTH 20.2 % (11.5-14.5); WHITE BLOOD COUNT (AUTO) 5.6 K/uL (4.5-11.0)
[2017-03-04 05:21] LABS: ALANINE AMINOTRANSFERASE 115 U/L (12-78); ALBUMIN 2.7 g/dL (3.4-5.0); ANION GAP 5 mmol/L (8-16); ASPARTATE AMINOTRANSFERASE 98 U/L (15-37); BILIRUBIN,TOTAL 0.4 mg/dL (0.1-1.0); CALCIUM, TOTAL 7.8 mg/dL (8.8-10.5); CARBON DIOXIDE 28 mmol/L (22-29); CHLORIDE 101 mmol/L (98-107); CREATININE 0.54 mg/dL (0.60-1.30); GLOMERULAR FILTR. RATE CALC > 60 mL/min (>60); POTASSIUM 3.6 mmol/L (3.5-5.1); SODIUM SERUM 134 mmol/L (136-145); TOTAL PROTEIN, SERUM 6.2 g/dL (6.4-8.2); UREA NITROGEN, BLOOD 9 mg/dL (7-18)
[2017-03-04] MEDS: ChlordiazePOXIDE HCL 25 MG CAPSULE PO SCH ×4 (06:11→23:09)
[2017-03-04] MEDS: MAGNESIUM OXIDE 400 MG TABLET PO PRN ×3 (06:46→23:09)
[2017-03-04] MEDS: MethylPREDNISolone SOD SUCC 125 MG/2 ML VIAL IVP SCH ×3 (08:00→23:08)
[2017-03-04] MEDS: PANTOPRAZOLE SODIUM 40 MG DR TABLET PO SCH (09:00)
[2017-03-04] MEDS: ALBUTEROL SULFATE 2.5 MG/0.5 ML NEB SOLUTION NEB SCH ×3 (09:57→20:13)
[2017-03-04] MEDS: IPRATROPIUM BROMIDE 0.5 MG/2.5 ML NEB SOLUTION NEB SCH ×3 (09:57→20:13)
[2017-03-04] MEDS: MULTIVITAMINS, THERAPEUTIC TABLET PO SCH (10:30)
[2017-03-04] MEDS: FOLIC ACID 1 MG TABLET PO SCH (10:30)
[2017-03-04] MEDS: THIAMINE HCL 100 MG TABLET PO SCH (10:30)
[2017-03-04] MEDS ORDERED: ChlordiazePOXIDE HCL 25 MG CAPSULE ONE (10:41)
[2017-03-04] MEDS ORDERED: MethylPREDNISolone SOD SUCC 125 MG/2 ML VIAL ONE (10:41)
[2017-03-04 11:03] LABS: LYMPHOCYTES % (MANUAL) 2 % (22-44); RBC MORPHOLOGY COMMENT ABNORMAL R; TOTAL CELLS COUNTED 100
[2017-03-04] MEDS: IRON DEXTRAN COMPLEX 100 MG in SODIUM CHLORIDE 0.9% 100 ML IV SCH (19:57)
[2017-03-05 02:50] VITALS: BP 117/74
[2017-03-05] MEDS: HYDROCODONE/ACETAMINOPHEN 5-325 MG TABLET PO PRN (02:53)
[2017-03-05 04:04] VITALS: BP 130/85
[2017-03-05] MEDS: ChlordiazePOXIDE HCL 25 MG CAPSULE PO SCH ×4 (05:17→23:24)
[2017-03-05 06:26] LABS: EOSINOPHILS % (AUTO) 0.2 % (1.0-6.0); HEMATOCRIT 26.4 % (41-53); HEMOGLOBIN 7.7 g/dL (13.5-17.5); LYMPHOCYTES # (AUTO) 0.5 K/uL (1.0-4.8); LYMPHOCYTES % (AUTO) 8.4 % (22.0-44.0); MEAN CORPUSCULAR HGB CONC 29.1 G/dL (31.0-37.0); MEAN CORPUSCULAR VOLUME 79 fL (80-100); MONOCYTES # (AUTO) 0.4 K/uL (0.1-1.0); MONOCYTES % (AUTO) 7.9 % (2.0-9.0); NEUTROPHILS # (AUTO) 4.7 K/uL (1.8-7.7); NEUTROPHILS % (AUTO) 83.5 % (40.0-70.0); PLATELET COUNT (AUTO) 217 K/uL (150-450); RED BLOOD CELL COUNT(AUTO) 3.35 MIL/uL (4.50-5.90); RED CELL DISTRIBUTION WIDTH 20.8 % (11.5-14.5); WHITE BLOOD COUNT (AUTO) 5.6 K/uL (4.5-11.0)
[2017-03-05 07:05] LABS: ALANINE AMINOTRANSFERASE 213 U/L (12-78); ALBUMIN 2.6 g/dL (3.4-5.0); ANION GAP 7 mmol/L (8-16); ASPARTATE AMINOTRANSFERASE 127 U/L (15-37); BILIRUBIN,TOTAL 0.3 mg/dL (0.1-1.0); CALCIUM, TOTAL 8.1 mg/dL (8.8-10.5); CARBON DIOXIDE 28 mmol/L (22-29); CHLORIDE 99 mmol/L (98-107); CREATININE 0.58 mg/dL (0.60-1.30); GLOMERULAR FILTR. RATE CALC > 60 mL/min (>60); POTASSIUM 3.6 mmol/L (3.5-5.1); SODIUM SERUM 134 mmol/L (136-145); TOTAL PROTEIN, SERUM 5.9 g/dL (6.4-8.2); UREA NITROGEN, BLOOD 10 mg/dL (7-18)
[2017-03-05 07:16] VITALS: BP 117/82
[2017-03-05] MEDS: THIAMINE HCL 100 MG TABLET PO SCH (07:56)
[2017-03-05] MEDS: PANTOPRAZOLE SODIUM 40 MG DR TABLET PO SCH (07:56)
[2017-03-05] MEDS: MethylPREDNISolone SOD SUCC 125 MG/2 ML VIAL IVP SCH ×3 (07:56→23:24)
[2017-03-05] MEDS: MULTIVITAMINS, THERAPEUTIC TABLET PO SCH (07:56)
[2017-03-05] MEDS: FOLIC ACID 1 MG TABLET PO SCH (07:56)
[2017-03-05 09:25] LABS: RBC MORPHOLOGY COMMENT ABNORMAL RBC MORPH
[2017-03-05] MEDS: IPRATROPIUM BROMIDE 0.5 MG/2.5 ML NEB SOLUTION NEB SCH ×3 (10:09→20:14)
[2017-03-05] MEDS: ALBUTEROL SULFATE 2.5 MG/0.5 ML NEB SOLUTION NEB SCH ×3 (10:09→20:14)
[2017-03-05 11:07] VITALS: BP 121/75
[2017-03-05] MEDS: SODIUM CHLORIDE 0.9% 1,000 ML IV SCH ×2 (11:41→20:11)
[2017-03-05 15:29] VITALS: BP 122/77
[2017-03-05] MEDS ORDERED: MAGNESIUM OXIDE 400 MG TABLET PO PRN (15:45)
[2017-03-05] MEDS ORDERED: MAGNESIUM SULFATE 4 GM/WATER 100 ML IV PRN (15:45)
[2017-03-05] MEDS ORDERED: MAGNESIUM SULFATE 2 GM in DEXTROSE 5%-WATER 50 ML IV PRN (15:45)
[2017-03-05] MEDS: MAGNESIUM SULFATE 4 GM/WATER 100 ML IV PRN (16:25)
[2017-03-05] MEDS ORDERED: SODIUM CHLORIDE 0.9% 50 ML ONE (19:26)
[2017-03-05] MEDS: IRON DEXTRAN COMPLEX 100 MG in SODIUM CHLORIDE 0.9% 100 ML IV SCH (20:16)
[2017-03-05 20:18] VITALS: BP 113/80
[2017-03-05] MEDS ORDERED: 0.9% SODIUM CHLORIDE 10 ML SYRINGE IVP PRN (22:00)
[2017-03-06] VITALS (7 sets, daily range): BP systolic 98–126; BP diastolic 59–85
[2017-03-06] MEDS: SODIUM CHLORIDE 0.9% 1,000 ML IV SCH ×2 (04:57→14:00)
[2017-03-06] MEDS: ChlordiazePOXIDE HCL 25 MG CAPSULE PO SCH ×4 (05:56→23:23)
[2017-03-06 06:41] LABS: HEMATOCRIT 28.5 % (41-53); HEMOGLOBIN 8.2 g/dL (13.5-17.5); MEAN CORPUSCULAR HEMOGLOBIN 23.1 pg (26.0-34.0); MEAN CORPUSCULAR HGB CONC 28.8 G/dL (31.0-37.0); MEAN CORPUSCULAR VOLUME 80 fL (80-100); PLATELET COUNT (AUTO) 280 K/uL (150-450); RED BLOOD CELL COUNT(AUTO) 3.55 MIL/uL (4.50-5.90); RED CELL DISTRIBUTION WIDTH 21.9 % (11.5-14.5); WHITE BLOOD COUNT (AUTO) 7.3 K/uL (4.5-11.0)
[2017-03-06 06:58] LABS: ALANINE AMINOTRANSFERASE 352 U/L (12-78); ALBUMIN 2.6 g/dL (3.4-5.0); ANION GAP 5 mmol/L (8-16); ASPARTATE AMINOTRANSFERASE 211 U/L (15-37); BILIRUBIN,TOTAL 0.3 mg/dL (0.1-1.0); CALCIUM, TOTAL 7.9 mg/dL (8.8-10.5); CARBON DIOXIDE 30 mmol/L (22-29); CHLORIDE 100 mmol/L (98-107); CREATININE 0.58 mg/dL (0.60-1.30); GLOMERULAR FILTR. RATE CALC > 60 mL/min (>60); POTASSIUM 3.6 mmol/L (3.5-5.1); SODIUM SERUM 135 mmol/L (136-145); UREA NITROGEN, BLOOD 9 mg/dL (7-18)
[2017-03-06] MEDS: PANTOPRAZOLE SODIUM 40 MG DR TABLET PO SCH (07:47)
[2017-03-06] MEDS: MULTIVITAMINS, THERAPEUTIC TABLET PO SCH (07:47)
[2017-03-06] MEDS: THIAMINE HCL 100 MG TABLET PO SCH (07:47)
[2017-03-06] MEDS: MethylPREDNISolone SOD SUCC 125 MG/2 ML VIAL IVP SCH (07:47)
[2017-03-06] MEDS: FOLIC ACID 1 MG TABLET PO SCH (07:47)
[2017-03-06 08:27] LABS: BAND NEUTROPHILS % (MANUAL) 5 % (1-5); EOSINOPHILS % (MANUAL) 1 % (1-6); LYMPHOCYTES % (MANUAL) 14 % (22-44); RBC MORPHOLOGY COMMENT ABNORMAL RBC MORPH; TOTAL CELLS COUNTED 100
[2017-03-06] MEDS: IPRATROPIUM BROMIDE 0.5 MG/2.5 ML NEB SOLUTION NEB SCH ×3 (09:10→20:35)
[2017-03-06] MEDS: ALBUTEROL SULFATE 2.5 MG/0.5 ML NEB SOLUTION NEB SCH ×3 (09:10→20:35)
[2017-03-06] MEDS ORDERED: SODIUM CHLORIDE 0.9% 250 ML IV ONE (09:28)
[2017-03-06] MEDS: POTASSIUM CHL 10 MEQ/WATER 50 ML IV PRN ×3 (09:32→14:00)
[2017-03-06] MEDS ORDERED: AMIN30LI28 PO (10:47)
[2017-03-06] MEDS ORDERED: PHOSLOC PO (10:48)
[2017-03-06] MEDS ORDERED: CARV6 PO (10:48)
[2017-03-06] MEDS ORDERED: DSS100 PO (10:49)
[2017-03-06] MEDS ORDERED: CINA90TA PO (10:49)
[2017-03-06] MEDS ORDERED: INSU100V12 SQ (10:51)
[2017-03-06] MEDS ORDERED: MULT-248 PO (10:53)
[2017-03-06] MEDS ORDERED: ACET-2247 PO (10:53)
[2017-03-06] MEDS ORDERED: BISA10S PR (10:54)
[2017-03-06] MEDS ORDERED: A20IH1 IH (10:56)
[2017-03-06] MEDS ORDERED: CEFO2PIG IV (11:00)
[2017-03-06] MEDS ORDERED: CLON.1 PO (11:01)
[2017-03-06] MEDS ORDERED: IPRNEB IH (11:03)
[2017-03-06] MEDS ORDERED: MOM30 PO (11:04)
[2017-03-06] MEDS ORDERED: ONDA4 PO (11:05)
[2017-03-06] MEDS ORDERED: PERCT10 PO (11:09)
[2017-03-06] MEDS ORDERED: VANC1IV IV (11:11)
[2017-03-06] MEDS ORDERED: ZOLP10 PO (11:12)
[2017-03-06] MEDS: MethylPREDNISolone SOD SUCC 40 MG/ML VIAL IVP SCH ×2 (15:48→23:22)
[2017-03-06] MEDS: IRON DEXTRAN COMPLEX 100 MG in SODIUM CHLORIDE 0.9% 100 ML IV SCH (19:17)
[2017-03-06] MEDS ORDERED: SODIUM CHLORIDE 0.9% 50 ML ONE (21:07)
[2017-03-07] MEDS: SODIUM CHLORIDE 0.9% 1,000 ML IV SCH ×3 (00:58→23:46)
[2017-03-07 04:52] VITALS: BP 122/83
[2017-03-07] MEDS: ChlordiazePOXIDE HCL 25 MG CAPSULE PO SCH ×3 (05:26→17:32)
[2017-03-07 07:07] VITALS: BP 117/80
[2017-03-07] MEDS: IPRATROPIUM BROMIDE 0.5 MG/2.5 ML NEB SOLUTION NEB SCH ×3 (07:27→20:35)
[2017-03-07] MEDS: ALBUTEROL SULFATE 2.5 MG/0.5 ML NEB SOLUTION NEB SCH ×3 (07:27→20:35)
[2017-03-07 07:39] LABS: BASOPHILS # (AUTO) 0.01 K/uL (0.00-0.20); BASOPHILS % (AUTO) 0.1 % (0.0-2.0); EOSINOPHILS # (AUTO) 0.02 K/uL (0.00-0.70); EOSINOPHILS % (AUTO) 0.29 % (1.0-6.0); HEMATOCRIT 30.5 % (41-53); HEMOGLOBIN 9.1 g/dL (13.5-17.5); LYMPHOCYTES # (AUTO) 0.6 K/uL (1.0-4.8); LYMPHOCYTES % (AUTO) 8.7 % (22.0-44.0); MEAN CORPUSCULAR HEMOGLOBIN 24.4 pg (26.0-34.0); MEAN CORPUSCULAR VOLUME 81 fL (80-100); MONOCYTES # (AUTO) 0.5 K/uL (0.1-1.0); MONOCYTES % (AUTO) 7.4 % (2.0-9.0); NEUTROPHILS # (AUTO) 5.8 K/uL (1.8-7.7); NEUTROPHILS % (AUTO) 83.5 % (40.0-70.0); PLATELET COUNT (AUTO) 289 K/uL (150-450); RED BLOOD CELL COUNT(AUTO) 3.75 MIL/uL (4.50-5.90); RED CELL DISTRIBUTION WIDTH 22.2 % (11.5-14.5)
[2017-03-07 07:55] LABS: ALANINE AMINOTRANSFERASE 492 U/L (12-78); ALBUMIN 2.5 g/dL (3.4-5.0); ANION GAP 3 mmol/L (8-16); ASPARTATE AMINOTRANSFERASE 275 U/L (15-37); BILIRUBIN,TOTAL 0.3 mg/dL (0.1-1.0); CALCIUM, TOTAL 8.3 mg/dL (8.8-10.5); CARBON DIOXIDE 32 mmol/L (22-29); CHLORIDE 103 mmol/L (98-107); CREATININE 0.52 mg/dL (0.60-1.30); GLOMERULAR FILTR. RATE CALC > 60 mL/min (>60); SODIUM SERUM 138 mmol/L (136-145); TOTAL PROTEIN, SERUM 5.8 g/dL (6.4-8.2); UREA NITROGEN, BLOOD 8 mg/dL (7-18)
[2017-03-07] MEDS: THIAMINE HCL 100 MG TABLET PO SCH (08:16)
[2017-03-07] MEDS: PredniSONE 20 MG TABLET PO SCH (08:16)
[2017-03-07] MEDS: MethylPREDNISolone SOD SUCC 40 MG/ML VIAL IVP SCH (08:16)
[2017-03-07] MEDS: PANTOPRAZOLE SODIUM 40 MG DR TABLET PO SCH (08:16)
[2017-03-07] MEDS: FOLIC ACID 1 MG TABLET PO SCH (08:16)
[2017-03-07] MEDS: MULTIVITAMINS, THERAPEUTIC TABLET PO SCH (08:17)
[2017-03-07] MEDS: HYDROCODONE/ACETAMINOPHEN 5-325 MG TABLET PO PRN ×3 (08:17→19:41)
[2017-03-07 08:39] LABS: WHITE BLOOD COUNT (AUTO) 6.9 K/uL (4.5-11.0)
[2017-03-07 11:20] VITALS: BP_SYST 101; BP_SYST 103; BP_DIAS 6; BP_DIAS 70
[2017-03-07 15:05] VITALS: BP 115/67
[2017-03-07 19:18] VITALS: BP 109/71
[2017-03-07] MEDS: IRON DEXTRAN COMPLEX 100 MG in SODIUM CHLORIDE 0.9% 100 ML IV SCH (20:13)
[2017-03-07 23:46] VITALS: BP 110/72
[2017-03-08] MEDS: ChlordiazePOXIDE HCL 25 MG CAPSULE PO SCH ×3 (00:01→12:09)
[2017-03-08] MEDS: MAGNESIUM SULFATE 4 GM/WATER 100 ML IV PRN (03:48)
[2017-03-08 04:57] VITALS: BP 109/81
[2017-03-08] MEDS: SODIUM CHLORIDE 0.9% 1,000 ML IV SCH ×2 (07:45→17:45)
[2017-03-08] MEDS: IPRATROPIUM BROMIDE 0.5 MG/2.5 ML NEB SOLUTION NEB SCH ×2 (07:55→15:31)
[2017-03-08] MEDS: ALBUTEROL SULFATE 2.5 MG/0.5 ML NEB SOLUTION NEB SCH ×2 (07:55→15:31)
[2017-03-08 08:09] VITALS: BP 98/52
[2017-03-08] MEDS: FOLIC ACID 1 MG TABLET PO SCH (09:26)
[2017-03-08] MEDS: MULTIVITAMINS, THERAPEUTIC TABLET PO SCH (09:26)
[2017-03-08] MEDS: THIAMINE HCL 100 MG TABLET PO SCH (09:26)
[2017-03-08] MEDS: PANTOPRAZOLE SODIUM 40 MG DR TABLET PO SCH (09:26)
[2017-03-08] MEDS: PredniSONE 20 MG TABLET PO SCH (09:27)
[2017-03-08 12:20] VITALS: BP 107/71
[2017-03-08 16:00] VITALS: BP 102/70
== END 2017-03-08 17:30 | DRG 140 ==
LOC: EMS 21:11 → 5N 02-26 00:13 → ICU 03-01 22:05 → 5S 03-04 15:50
PROVIDERS: ADMIT Internal Medicine; ATTEND Internal Medicine
DX: J44.1 Chronic obstructive pulmonary disease with (acute) exacerbation (principal); F10.231 Alcohol dependence with withdrawal delirium; D61.818 Other pancytopenia; E44.0 Moderate protein-calorie malnutrition; R45.851 Suicidal ideations; E55.9 Vitamin D deficiency, unspecified; F17.210 Nicotine dependence, cigarettes, uncomplicated; E87.6 Hypokalemia; F31.9 Bipolar disorder, unspecified; Z68.1 Body mass index [BMI] 19.9 or less, adult; Z91.030 Bee allergy status; Z79.899 Other long term (current) drug therapy; K21.9 Gastro-esophageal reflux disease without esophagitis; B19.20 Unspecified viral hepatitis C without hepatic coma; Z59.0 Homelessness; K70.30 Alcoholic cirrhosis of liver without ascites; E83.42 Hypomagnesemia; G89.29 Other chronic pain; M54.9 Dorsalgia, unspecified; F25.9 Schizoaffective disorder, unspecified; Z71.6 Tobacco abuse counseling; Z71.41 Alcohol abuse counseling and surveillance of alcoholic
CPT/HCPCS: 80307; 82270; 82271; 82306; 82607; 82746; 82805; 83036; 83540; 83550; 83735; 84132; 84443; 87040; 87081; 93005; 94640; 96365; 97116; 97162; 97530; 99285; G0480; J1200; J1630; J1644; J1750; J2060; J2405; J2920; J2930; J3411; J3475; J3480; J3490; J7030; J7050; J7060

== ENCOUNTER 2017-10-07 16:03 | Inpatient (IN) | payer MEDICAID ==
[~2017-10-07] VITALS: Ht 175.3 cm; Wt 54.4 kg
[~2017-10-07 16:03] MED LIST changes: +A20IH1 IH; +ACET-2247 PO; +AMIN30LI28 PO; +BISA10S PR; +CARV6 PO; +CEFO2PIG IV; +CINA90TA PO; +CLON-570 PO; +DSS100 PO; +INSU100V12 SQ; +IPRNEB IH; +KDUR20 PO; +MOM30 PO; +MULT-248 PO; +ONDA4 PO; +PERCT10 PO; +PHOSLOC PO; -POTA99TA4 PO; +VANC1IV IV; +ZOLP10TA7 PO
[2017-10-07 19:56] VITALS: BP 119/80
[2017-10-07] MEDS ORDERED: CITA10TA68 PO (20:14)
[2017-10-07] MEDS ORDERED: TAMS0.4C32 PO (20:14)
[2017-10-07] MEDS ORDERED: FOLI1 PO (20:14)
[2017-10-07] MEDS ORDERED: GABA-529 PO (20:14)
[2017-10-07] MEDS ORDERED: TIOT185 IH (20:14)
[2017-10-07] MEDS ORDERED: ADV250 IH (20:14)
[2017-10-07] MEDS ORDERED: INFLUENZA VIRUS VACCINE QVS 2017-18 (3YR+)/PF 60 MCG/0.5 ML SYRINGE IM ONE (20:30)
[2017-10-07 21:00] VITALS: BP 130/54
[2017-10-07 22:22] VITALS: BP 105/87
[2017-10-07 23:00] VITALS: BP 115/82
[2017-10-08] VITALS (7 sets, daily range): BP systolic 101–124; BP diastolic 52–80
[2017-10-08 08:37] LABS: BASOPHILS # (AUTO) 0.02 K/uL (0.00-0.20); BASOPHILS % (AUTO) 0.6 % (0.0-2.0); EOSINOPHILS # (AUTO) 0.02 K/uL (0.00-0.70); EOSINOPHILS % (AUTO) 0.43 % (1.0-6.0); HEMATOCRIT 28.2 % (41-53); HEMOGLOBIN 8.9 g/dL (13.5-17.5); LYMPHOCYTES # (AUTO) 0.6 K/uL (1.0-4.8); LYMPHOCYTES % (AUTO) 16.9 % (22.0-44.0); MEAN CORPUSCULAR HEMOGLOBIN 24.8 pg (26.0-34.0); MEAN CORPUSCULAR HGB CONC 31.4 G/dL (31.0-37.0); MEAN CORPUSCULAR VOLUME 79 fL (80-100); MONOCYTES # (AUTO) 0.3 K/uL (0.1-1.0); MONOCYTES % (AUTO) 9.1 % (2.0-9.0); NEUTROPHILS # (AUTO) 2.6 K/uL (1.8-7.7); PLATELET COUNT (AUTO) 119 K/uL (150-450); RED BLOOD CELL COUNT(AUTO) 3.57 MIL/uL (4.50-5.90); RED CELL DISTRIBUTION WIDTH 22.4 % (11.5-14.5)
[2017-10-08 08:58] LABS: ALANINE AMINOTRANSFERASE 23 U/L (12-78); ALBUMIN 3.2 g/dL (3.4-5.0); ALKALINE PHOSPHATASE 106 U/L (46-116); ANION GAP 11 mmol/L (8-16); ASPARTATE AMINOTRANSFERASE 39 U/L (15-37); BILIRUBIN,TOTAL 0.9 mg/dL (0.1-1.0); CALCIUM, TOTAL 8.3 mg/dL (8.8-10.5); CARBON DIOXIDE 27 mmol/L (22-29); CHLORIDE 97 mmol/L (98-107); CHOL/HDL RATIO 1.6 (4.2-7.3); CHOLESTEROL 214 mg/dL (131-200); CREATININE 0.54 mg/dL (0.60-1.30); FREE T4 (FREE THYROXINE) 0.84 ng/dL (0.76-1.46); GLOMERULAR FILTR. RATE CALC > 60 mL/min (>60); GLUCOSE,RANDOM 116 mg/dL (70-110); HDL CHOLESTEROL 130 mg/dL (40-60); LDL CHOL (CALC.) 74 mg/dL (0-130); POTASSIUM 3.7 mmol/L (3.5-5.1); SODIUM SERUM 135 mmol/L (136-145); THYROID STIMULATING HORMONE 0.69 uIU/mL (0.36-3.74); TOTAL PROTEIN, SERUM 7.4 g/dL (6.4-8.2); TRIGLYCERIDES 48 mg/dL (15-150); UREA NITROGEN, BLOOD 8 mg/dL (7-18)
[2017-10-08] MEDS: NICOTINE 21 MG/24 HOUR PATCH TD SCH (09:00)
[2017-10-08 09:12] LABS: HEMOGLOBIN A1C 5.5 % (4.5-6.2)
[2017-10-08] MEDS: ACETAMINOPHEN 325 MG TABLET PO PRN (10:28)
[2017-10-08] MEDS ORDERED: ALBUTEROL SULFATE HFA 90 MCG/PUFF 8 GM INHALER IH PRN (10:30)
[2017-10-08] MEDS ORDERED: MAG HYDROX/AL HYDROX/SIMETH ES 30 ML SUSPENSION UDCUP PO PRN (10:30)
[2017-10-08] MEDS ORDERED: BENZOCAINE/MENTHOL LOZENGE MM PRN (10:30)
[2017-10-08] MEDS ORDERED: MAGNESIUM HYDROXIDE SUSPENSION 30 ML UDCUP PO PRN (10:30)
[2017-10-08] MEDS ORDERED: ONDANSETRON HCL 4 MG TABLET PO PRN (10:30)
[2017-10-08] MEDS ORDERED: LOPERAMIDE HCL 2 MG CAPSULE PO PRN (10:30)
[2017-10-08] MEDS ORDERED: PETROLATUM,WHITE 71 GM JELLY TP PRN (10:30)
[2017-10-08] MEDS ORDERED: BACITRACIN 28.4 GM OINTMENT TP PRN (10:30)
[2017-10-08] MEDS ORDERED: CloNIDine HCL 0.1 MG TABLET PO PRN (10:30)
[2017-10-08] MEDS: CITALOPRAM HYDROBROMIDE 20 MG TABLET PO SCH (13:38)
[2017-10-08] MEDS: FERROUS SULFATE 325 MG EC TABLET PO SCH (16:22)
[2017-10-08] MEDS: GABAPENTIN 400 MG CAPSULE PO SCH (16:22)
[2017-10-09 00:27] VITALS: BP 100/75
[2017-10-09] MEDS: FERROUS SULFATE 325 MG EC TABLET PO SCH ×2 (06:17→16:23)
[2017-10-09] MEDS: MULTIVITAMINS WITH MINERALS, THERAPEUTIC TABLET PO SCH (08:24)
[2017-10-09] MEDS: GABAPENTIN 400 MG CAPSULE PO SCH ×3 (08:24→16:23)
[2017-10-09] MEDS: OMEPRAZOLE 20 MG CAPSULE PO SCH (08:24)
[2017-10-09] MEDS: NICOTINE 21 MG/24 HOUR PATCH TD SCH (08:25)
[2017-10-09] MEDS: CHOLECALCIFEROL (VIT D3) 1,000 UNITS TABLET PO SCH (08:25)
[2017-10-09] MEDS: CITALOPRAM HYDROBROMIDE 20 MG TABLET PO SCH (08:25)
[2017-10-09 08:37] VITALS: BP 112/74
[2017-10-09 08:39] VITALS: BP 116/72
[2017-10-09] MEDS: HALOPERIDOL 5 MG TABLET PO PRN ×2 (10:08→17:28)
[2017-10-09 16:00] VITALS: BP 114/68
[2017-10-09 16:32] VITALS: BP 114/68
[2017-10-10 06:21] VITALS: BP 110/64
[2017-10-10] MEDS: FERROUS SULFATE 325 MG EC TABLET PO SCH ×2 (06:43→16:09)
[2017-10-10 07:59] LABS: AMPHET/METH SCREEN,URINE NEGATIVE (NEGATIVE); BARBITURATE SCREEN, URINE NEGATIVE (NEGATIVE); BENZODIAZEPINES SCREEN,URINE NEGATIVE (NEGATIVE); CANNABINOID SCREEN,URINE NEGATIVE (NEGATIVE); COCAINE SCREEN,URINE NEGATIVE (NEGATIVE); METHADONE SCREEN, URINE NEGATIVE (NEGATIVE); OPIATE SCREEN,URINE NEGATIVE (NEGATIVE)
[2017-10-10 08:07] LABS: PHENCYCLIDINE SCREEN,URINE NEGATIVE (NEGATIVE)
[2017-10-10] MEDS: LACTULOSE 20 GM/30 ML SOLUTION UDCUP PO SCH ×2 (08:30→16:09)
[2017-10-10 08:54] LABS: APPEARANCE,URINE CLEAR (CLEAR); BILIRUBIN,URINE NEGATIVE (NEGATIVE); GLUCOSE, URINE (UA) NEGATIVE (NEGATIVE); KETONES,URINE NEGATIVE (NEGATIVE); LEUKOCYTE ESTERASE ,URINE NEGATIVE (NEGATIVE); NITRATE,URINE NEGATIVE (NEGATIVE); OCCULT BLOOD,URINE NEGATIVE (NEGATIVE); PH,URINE 6.5 (5.0-8.0); PROTEIN,URINE NEGATIVE (NEGATIVE); UROBILINOGEN,URINE 0.2 mg/dL (<=1.0)
[2017-10-10] MEDS: CHOLECALCIFEROL (VIT D3) 1,000 UNITS TABLET PO SCH (09:28)
[2017-10-10] MEDS: CITALOPRAM HYDROBROMIDE 20 MG TABLET PO SCH (09:28)
[2017-10-10] MEDS: OMEPRAZOLE 20 MG CAPSULE PO SCH (09:28)
[2017-10-10] MEDS: MULTIVITAMINS WITH MINERALS, THERAPEUTIC TABLET PO SCH (09:28)
[2017-10-10] MEDS: GABAPENTIN 400 MG CAPSULE PO SCH ×3 (09:28→16:09)
[2017-10-10] MEDS: NICOTINE 21 MG/24 HOUR PATCH TD SCH (09:29)
[2017-10-10 12:18] VITALS: BP 116/79
[2017-10-10 12:19] VITALS: BP 116/79
[2017-10-10 12:25] VITALS: BP 116/79
[2017-10-10] MEDS: ACETAMINOPHEN 325 MG TABLET PO PRN (12:26)
[2017-10-10 13:35] LABS: BACTERIA,URINE None Seen /HPF (None Seen); RBC,URINE 0-2 /HPF (0-2); WBC,URINE 0-2 /HPF (0-5)
[2017-10-10 13:36] LABS: SQUAMOUS EPITHELIAL CELL,UR Few /LPF (None Seen)
[2017-10-10 16:05] VITALS: BP 145/79
[2017-10-10 16:06] VITALS: BP 145/79
[2017-10-10] MEDS: IBUPROFEN 600 MG TABLET PO PRN (18:51)
[2017-10-11] MEDS: LACTULOSE 20 GM/30 ML SOLUTION UDCUP PO SCH ×3 (05:31→16:11)
[2017-10-11 06:30] VITALS: BP 112/71
[2017-10-11] MEDS: FERROUS SULFATE 325 MG EC TABLET PO SCH ×2 (06:30→16:11)
[2017-10-11] MEDS: MULTIVITAMINS WITH MINERALS, THERAPEUTIC TABLET PO SCH (08:47)
[2017-10-11] MEDS: CHOLECALCIFEROL (VIT D3) 1,000 UNITS TABLET PO SCH (08:47)
[2017-10-11] MEDS: RisperiDONE 0.5 MG TABLET PO SCH ×2 (08:47→16:11)
[2017-10-11] MEDS: OMEPRAZOLE 20 MG CAPSULE PO SCH (08:47)
[2017-10-11] MEDS: NICOTINE 21 MG/24 HOUR PATCH TD SCH (08:47)
[2017-10-11] MEDS: GABAPENTIN 400 MG CAPSULE PO SCH ×3 (08:47→16:11)
[2017-10-11] MEDS: CITALOPRAM HYDROBROMIDE 20 MG TABLET PO SCH (08:47)
[2017-10-11 09:09] VITALS: BP 100/66
[2017-10-11 10:19] VITALS: BP 100/66
[2017-10-11 16:00] VITALS: BP 120/71
[2017-10-11 16:11] VITALS: BP 120/71
[2017-10-11] MEDS: IBUPROFEN 600 MG TABLET PO PRN (16:12)
[2017-10-12] MEDS: LACTULOSE 20 GM/30 ML SOLUTION UDCUP PO SCH ×3 (00:04→16:16)
[2017-10-12 01:00] VITALS: BP 116/69
[2017-10-12 01:01] VITALS: BP 116/69
[2017-10-12] MEDS: FERROUS SULFATE 325 MG EC TABLET PO SCH ×2 (06:25→17:30)
[2017-10-12 08:29] VITALS: BP 113/73
[2017-10-12 08:50] VITALS: BP 112/71
[2017-10-12] MEDS: MULTIVITAMINS WITH MINERALS, THERAPEUTIC TABLET PO SCH (08:52)
[2017-10-12] MEDS: RisperiDONE 0.5 MG TABLET PO SCH ×2 (08:52→17:48)
[2017-10-12] MEDS: CHOLECALCIFEROL (VIT D3) 1,000 UNITS TABLET PO SCH (08:52)
[2017-10-12] MEDS: CITALOPRAM HYDROBROMIDE 20 MG TABLET PO SCH (08:52)
[2017-10-12] MEDS: GABAPENTIN 400 MG CAPSULE PO SCH ×3 (08:52→17:30)
[2017-10-12] MEDS: OMEPRAZOLE 20 MG CAPSULE PO SCH (08:52)
[2017-10-12] MEDS: IBUPROFEN 600 MG TABLET PO PRN ×2 (08:53→17:30)
[2017-10-12] MEDS: NICOTINE 21 MG/24 HOUR PATCH TD SCH (08:55)
[2017-10-12 10:13] VITALS: BP 112/71
[2017-10-12 17:30] VITALS: BP 111/68
[2017-10-13] MEDS: LACTULOSE 20 GM/30 ML SOLUTION UDCUP PO SCH ×3 (00:40→16:12)
[2017-10-13 05:49] VITALS: BP 120/71
[2017-10-13] MEDS: FERROUS SULFATE 325 MG EC TABLET PO SCH ×2 (06:41→16:12)
[2017-10-13 08:40] VITALS: BP 107/62
[2017-10-13] MEDS: RisperiDONE 0.5 MG TABLET PO SCH ×2 (08:59→16:12)
[2017-10-13] MEDS: GABAPENTIN 400 MG CAPSULE PO SCH ×3 (09:00→16:12)
[2017-10-13] MEDS: CITALOPRAM HYDROBROMIDE 20 MG TABLET PO SCH (09:00)
[2017-10-13] MEDS: OMEPRAZOLE 20 MG CAPSULE PO SCH (09:00)
[2017-10-13] MEDS: CHOLECALCIFEROL (VIT D3) 1,000 UNITS TABLET PO SCH (09:00)
[2017-10-13] MEDS: MULTIVITAMINS WITH MINERALS, THERAPEUTIC TABLET PO SCH (09:00)
[2017-10-13] MEDS: NICOTINE 21 MG/24 HOUR PATCH TD SCH (09:00)
[2017-10-13 09:49] VITALS: BP 107/62
[2017-10-13 16:18] VITALS: BP 117/64
[2017-10-13 19:21] VITALS: BP 118/80
[2017-10-13] MEDS: IBUPROFEN 600 MG TABLET PO PRN (19:21)
[2017-10-14 01:04] VITALS: BP 108/72
[2017-10-14] MEDS: FERROUS SULFATE 325 MG EC TABLET PO SCH (06:24)
[2017-10-14] MEDS: LACTULOSE 20 GM/30 ML SOLUTION UDCUP PO SCH ×2 (08:00)
[2017-10-14 08:06] VITALS: BP 103/61
[2017-10-14] MEDS ORDERED: FERR-89 PO (08:23)
[2017-10-14] MEDS ORDERED: MULT-723 PO (08:23)
[2017-10-14] MEDS ORDERED: MULT-248 PO (08:23)
[2017-10-14] MEDS ORDERED: NICO-704 TD (08:23)
[2017-10-14] MEDS ORDERED: LACT30L PO (08:23)
[2017-10-14] MEDS ORDERED: OMEP20 PO (08:23)
[2017-10-14] MEDS ORDERED: RISP.5 PO (08:23)
[2017-10-14] MEDS: MULTIVITAMINS WITH MINERALS, THERAPEUTIC TABLET PO SCH (08:57)
[2017-10-14] MEDS: GABAPENTIN 400 MG CAPSULE PO SCH (08:57)
[2017-10-14] MEDS: CITALOPRAM HYDROBROMIDE 20 MG TABLET PO SCH (08:57)
[2017-10-14] MEDS: CHOLECALCIFEROL (VIT D3) 1,000 UNITS TABLET PO SCH (08:57)
[2017-10-14] MEDS: OMEPRAZOLE 20 MG CAPSULE PO SCH (08:57)
[2017-10-14] MEDS: NICOTINE 21 MG/24 HOUR PATCH TD SCH (08:58)
[2017-10-14] MEDS: RisperiDONE 0.5 MG TABLET PO SCH (08:58)
== END 2017-10-14 10:29 | disposition home or self-care (01) | DRG 754 ==
LOC: B2S 20:17
PROVIDERS: ADMIT Psychiatry & Neurology Psychiatry; ATTEND Psychiatry & Neurology Psychiatry
DX: F32.9 Major depressive disorder, single episode, unspecified (principal); D61.818 Other pancytopenia; R45.851 Suicidal ideations; E44.1 Mild protein-calorie malnutrition; F22 Delusional disorders; D50.9 Iron deficiency anemia, unspecified; F10.129 Alcohol abuse with intoxication, unspecified; E55.9 Vitamin D deficiency, unspecified; D72.829 Elevated white blood cell count, unspecified; F17.200 Nicotine dependence, unspecified, uncomplicated; G47.00 Insomnia, unspecified; J44.9 Chronic obstructive pulmonary disease, unspecified; K21.9 Gastro-esophageal reflux disease without esophagitis; Z68.1 Body mass index [BMI] 19.9 or less, adult
CPT/HCPCS: 80307; 83036; 84439; 84443; Q0162

== ENCOUNTER 2018-03-20 14:19 | Inpatient (IN) | payer MEDICAID, OTHER ==
[~2018-03-20] VITALS: Ht 175.3 cm; Wt 52.7 kg
[~2018-03-20 14:19] MED LIST changes: -A20IH1 IH; -ACET-2247 PO; -AMIN30LI28 PO; -BISA10S PR; -CARV6 PO; -CEFO2PIG IV; -CINA90TA PO; +CITA10TA68 PO; -CLON-570 PO; -DSS100 PO; +FERR-89 PO; +GABA-529 PO; -INSU100V12 SQ; -IPRNEB IH; -KDUR20 PO; +LACT30L PO; -MAGOX PO; -MOM30 PO; -MULT-1203 PO; +NICO-704 TD; +OMEP20 PO; -ONDA4 PO; -PERCT10 PO; -PHOSLOC PO; +RISP.5 PO; -VANC1IV IV; -ZOLP10TA7 PO
[2018-03-20 15:38] LABS: ANION GAP 14 mmol/L (8-16); CALCIUM, TOTAL 7.7 mg/dL (8.8-10.5); CARBON DIOXIDE 26 mmol/L (22-29); CHLORIDE 100 mmol/L (98-107); GLOMERULAR FILTR. RATE CALC > 60 mL/min (>60); GLUCOSE,RANDOM 88 mg/dL (70-110); POTASSIUM 3.1 mmol/L (3.5-5.1); SODIUM SERUM 140 mmol/L (136-145); UREA NITROGEN, BLOOD 10 mg/dL (7-18)
[2018-03-20 15:40] LABS: BASOPHILS % (AUTO) 2.2 % (0.0-2.0); EOSINOPHILS % (AUTO) 1.3 % (1.0-6.0); HEMOGLOBIN 13.4 g/dL (13.5-17.5); LYMPHOCYTES # (AUTO) 1.4 K/uL (1.0-4.8); LYMPHOCYTES % (AUTO) 56.4 % (22.0-44.0); MEAN CORPUSCULAR HEMOGLOBIN 31.7 pg (26.0-34.0); MEAN CORPUSCULAR HGB CONC 34.3 G/dL (31.0-37.0); MEAN CORPUSCULAR VOLUME 92 fL (80-100); MONOCYTES # (AUTO) 0.3 K/uL (0.1-1.0); MONOCYTES % (AUTO) 10.7 % (2.0-9.0); NEUTROPHILS # (AUTO) 0.7 K/uL (1.8-7.7); NEUTROPHILS % (AUTO) 29.4 % (40.0-70.0); RED BLOOD CELL COUNT(AUTO) 4.23 MIL/uL (4.50-5.90); RED CELL DISTRIBUTION WIDTH 17.8 % (11.5-14.5)
[2018-03-20 15:45] LABS: ALANINE AMINOTRANSFERASE 91 U/L (12-78); ALBUMIN 3.1 g/dL (3.4-5.0); ALKALINE PHOSPHATASE 146 U/L (46-116); ASPARTATE AMINOTRANSFERASE 249 U/L (15-37); BILIRUBIN,TOTAL 0.5 mg/dL (0.1-1.0); LIPASE 502 U/L (73-393); TOTAL PROTEIN, SERUM 6.7 g/dL (6.4-8.2)
[2018-03-20] MEDS ORDERED: POTASSIUM CHLORIDE 10% 40 MEQ/30 ML LIQUID UDCUP PO ONE (16:00)
[2018-03-20 16:06] LABS: PLATELET COUNT (AUTO) 45 K/uL (150-450)
[2018-03-20 19:08] LABS: GLUCOSE,POINT OF CARE 178 MG/DL (70-110)
[2018-03-20] MEDS ORDERED: THIAMINE HCL 100 MG TABLET PO ONE (20:15)
[2018-03-20] MEDS ORDERED: LORazepam 2 MG TABLET PO PRN (21:00)
[2018-03-20 23:25] LABS: AMPHET/METH SCREEN,URINE NEGATIVE (NEGATIVE); BARBITURATE SCREEN, URINE NEGATIVE (NEGATIVE); BENZODIAZEPINES SCREEN,URINE NEGATIVE (NEGATIVE); CANNABINOID SCREEN,URINE NEGATIVE (NEGATIVE); COCAINE SCREEN,URINE NEGATIVE (NEGATIVE); METHADONE SCREEN, URINE NEGATIVE (NEGATIVE); OPIATE SCREEN,URINE NEGATIVE (NEGATIVE)
[2018-03-20 23:26] LABS: PHENCYCLIDINE SCREEN,URINE NEGATIVE (NEGATIVE)
[2018-03-21] VITALS (9 sets, daily range): BP systolic 108–131; BP diastolic 60–91
[2018-03-21 02:45] LABS: APPEARANCE,URINE CLEAR (CLEAR); BILIRUBIN,URINE NEGATIVE (NEGATIVE); GLUCOSE, URINE (UA) NEGATIVE (NEGATIVE); KETONES,URINE TRACE mg/dL (NEGATIVE); LEUKOCYTE ESTERASE ,URINE NEGATIVE (NEGATIVE); NITRATE,URINE NEGATIVE (NEGATIVE); OCCULT BLOOD,URINE NEGATIVE (NEGATIVE); PH,URINE 6.5 (5.0-8.0); PROTEIN,URINE SEE CONFIRM (NEGATIVE)
[2018-03-21 03:07] LABS: RBC,URINE 0-2 /HPF (0-2); SULFOSALICYLIC ACID,URINE 1+ (Negative)
[2018-03-21 03:08] LABS: WBC,URINE 0-2 /HPF (0-5)
[2018-03-21] MEDS: HALOPERIDOL 5 MG TABLET PO PRN (07:20)
[2018-03-21] MEDS ORDERED: CYANOCOBALAMIN 1,000 MCG/ML VIAL IM ONE (09:45)
[2018-03-21] MEDS ORDERED: HydrOXYzine PAMOATE 50 MG CAPSULE PO PRN (09:45)
[2018-03-21] MEDS ORDERED: GuaiFENesin/D-METHORPHAN [SUGAR-FREE] 200-20MG/10 ML SYRUP UDCUP PO PRN (09:45)
[2018-03-21] MEDS: FOLIC ACID 1 MG TABLET PO SCH (10:27)
[2018-03-21] MEDS: MULTIVITAMINS WITH MINERALS, THERAPEUTIC TABLET PO SCH (10:27)
[2018-03-21] MEDS: LORazepam 2 MG TABLET PO PRN ×2 (10:27→22:15)
[2018-03-21] MEDS: THIAMINE HCL 100 MG TABLET PO SCH ×2 (10:27→17:59)
[2018-03-21] MEDS ORDERED: LORazepam 2 MG/ML VIAL IM ONE (10:45)
[2018-03-21] MEDS ORDERED: BENZOCAINE/MENTHOL LOZENGE MM PRN (12:45)
[2018-03-21] MEDS ORDERED: ACETAMINOPHEN 325 MG TABLET PO PRN (12:45)
[2018-03-21] MEDS ORDERED: MAG HYDROX/AL HYDROX/SIMETH ES 30 ML SUSPENSION UDCUP PO PRN (12:45)
[2018-03-21] MEDS ORDERED: BACITRACIN 28.4 GM OINTMENT TP PRN (12:45)
[2018-03-21] MEDS ORDERED: LOPERAMIDE HCL 2 MG CAPSULE PO PRN (12:45)
[2018-03-21] MEDS ORDERED: CloNIDine HCL 0.1 MG TABLET PO PRN (12:45)
[2018-03-21] MEDS ORDERED: MAGNESIUM HYDROXIDE SUSPENSION 30 ML UDCUP PO PRN (12:45)
[2018-03-21] MEDS ORDERED: ONDANSETRON HCL 4 MG TABLET PO PRN (12:45)
[2018-03-21] MEDS ORDERED: PETROLATUM,WHITE 71 GM JELLY TP PRN (12:45)
[2018-03-21] MEDS ORDERED: ALBUTEROL SULFATE HFA 90 MCG/PUFF 8 GM INHALER IH PRN (12:45)
[2018-03-21] MEDS: LOPERAMIDE HCL 2 MG CAPSULE PO PRN ×2 (17:59→22:35)
[2018-03-21] MEDS ORDERED: GABA-533 PO (19:13)
[2018-03-21] MEDS: LACTULOSE 20 GM/30 ML SOLUTION UDCUP PO SCH (21:24)
[2018-03-22] VITALS (8 sets, daily range): BP systolic 101–122; BP diastolic 70–91
[2018-03-22] MEDS: LACTULOSE 20 GM/30 ML SOLUTION UDCUP PO SCH ×3 (00:31→16:44)
[2018-03-22] MEDS: FERROUS SULFATE 325 MG EC TABLET PO SCH ×2 (07:02→16:45)
[2018-03-22 08:09] LABS: HEMATOCRIT 41.3 % (41-53); HEMOGLOBIN 14.3 g/dL (13.5-17.5); MEAN CORPUSCULAR HEMOGLOBIN 31.9 pg (26.0-34.0); MEAN CORPUSCULAR HGB CONC 34.5 G/dL (31.0-37.0); MEAN CORPUSCULAR VOLUME 92 fL (80-100); PLATELET COUNT (AUTO) 42 K/uL (150-450); RED BLOOD CELL COUNT(AUTO) 4.48 MIL/uL (4.50-5.90); RED CELL DISTRIBUTION WIDTH 17.4 % (11.5-14.5)
[2018-03-22 08:20] LABS: HEMOGLOBIN A1C 5.2 % (4.5-6.2)
[2018-03-22 08:36] LABS: AMYLASE 49 U/L (25-115); ANION GAP 12 mmol/L (8-16); CALCIUM, TOTAL 8.3 mg/dL (8.8-10.5); CARBON DIOXIDE 29 mmol/L (22-29); CHLORIDE 97 mmol/L (98-107); CREATININE 0.62 mg/dL (0.60-1.30); GLOMERULAR FILTR. RATE CALC > 60 mL/min (>60); GLUCOSE,RANDOM 89 mg/dL (70-110); LIPASE 212 U/L (73-393); PHOSPHORUS 4.1 mg/dL (2.5-4.9); SODIUM SERUM 138 mmol/L (136-145); UREA NITROGEN, BLOOD 11 mg/dL (7-18)
[2018-03-22 08:38] LABS: % IRON SATURATION 24.9 % (30-44); IRON, SERUM 74 mcg/dL (50-175); TOTAL IRON BINDING CAPACITY 297 mcg/dL (250-450)
[2018-03-22 08:49] LABS: BAND NEUTROPHILS % (MANUAL) 4 % (0-5); LYMPHOCYTES % (MANUAL) 30 % (22-44); MONOCYTES % (MANUAL) 8 % (2-9); SEGMENTED NEUTROPHILS % 58 % (40-70)
[2018-03-22 08:52] LABS: POTASSIUM 2.9 mmol/L (3.5-5.1)
[2018-03-22] MEDS ORDERED: POTASSIUM CHLORIDE 20 MEQ ER TABLET PO ONE ×2 (09:15→17:15)
[2018-03-22] MEDS: OMEPRAZOLE 20 MG CAPSULE PO SCH (09:23)
[2018-03-22] MEDS: FOLIC ACID 1 MG TABLET PO SCH (09:23)
[2018-03-22] MEDS: DOCUSATE SODIUM 100 MG CAPSULE PO SCH (09:24)
[2018-03-22] MEDS: LORazepam 2 MG TABLET PO SCH ×4 (09:24→21:10)
[2018-03-22] MEDS: MULTIVITAMINS WITH MINERALS, THERAPEUTIC TABLET PO SCH (09:24)
[2018-03-22] MEDS: GABAPENTIN 400 MG CAPSULE PO SCH ×3 (09:24→16:44)
[2018-03-22] MEDS: THIAMINE HCL 100 MG TABLET PO SCH ×2 (09:24→16:45)
[2018-03-22] MEDS: CITALOPRAM HYDROBROMIDE 20 MG TABLET PO SCH (11:58)
[2018-03-22] MEDS: MAGNESIUM OXIDE 400 MG TABLET PO SCH ×2 (13:02→16:44)
[2018-03-22] MEDS: LOPERAMIDE HCL 2 MG CAPSULE PO PRN ×2 (17:11→19:42)
[2018-03-23] MEDS: ZOLPIDEM TARTRATE 10 MG TABLET PO PRN (00:04)
[2018-03-23] MEDS: LACTULOSE 20 GM/30 ML SOLUTION UDCUP PO SCH ×3 (00:08→17:00)
[2018-03-23 00:12] VITALS: BP 109/68
[2018-03-23] MEDS ORDERED: -PHARMACY VACCINE NOTE- MISC ONE (00:30)
[2018-03-23] MEDS: LORazepam 2 MG TABLET PO PRN ×2 (00:57→03:11)
[2018-03-23 01:27] VITALS: BP 109/68
[2018-03-23] MEDS: HALOPERIDOL 5 MG TABLET PO PRN (03:11)
[2018-03-23] MEDS: FERROUS SULFATE 325 MG EC TABLET PO SCH ×2 (07:08→17:11)
[2018-03-23 08:00] VITALS: BP 121/81
[2018-03-23 08:04] LABS: ANION GAP 8 mmol/L (8-16); CALCIUM, TOTAL 8.6 mg/dL (8.8-10.5); CARBON DIOXIDE 26 mmol/L (22-29); CHLORIDE 100 mmol/L (98-107); CREATININE 0.74 mg/dL (0.60-1.30); GLOMERULAR FILTR. RATE CALC > 60 mL/min (>60); GLUCOSE,RANDOM 87 mg/dL (70-110); POTASSIUM 3.3 mmol/L (3.5-5.1); SODIUM SERUM 134 mmol/L (136-145); UREA NITROGEN, BLOOD 16 mg/dL (7-18)
[2018-03-23] MEDS: MULTIVITAMINS WITH MINERALS, THERAPEUTIC TABLET PO SCH (08:14)
[2018-03-23] MEDS: DOCUSATE SODIUM 100 MG CAPSULE PO SCH (08:14)
[2018-03-23] MEDS: GABAPENTIN 400 MG CAPSULE PO SCH ×3 (08:15→17:11)
[2018-03-23] MEDS: OMEPRAZOLE 20 MG CAPSULE PO SCH (08:15)
[2018-03-23] MEDS: LORazepam 2 MG TABLET PO SCH ×4 (08:15→20:51)
[2018-03-23] MEDS: MAGNESIUM OXIDE 400 MG TABLET PO SCH ×3 (08:15→17:11)
[2018-03-23] MEDS: THIAMINE HCL 100 MG TABLET PO SCH ×2 (08:15→17:11)
[2018-03-23] MEDS: CITALOPRAM HYDROBROMIDE 20 MG TABLET PO SCH (08:15)
[2018-03-23] MEDS: FOLIC ACID 1 MG TABLET PO SCH (08:16)
[2018-03-23] MEDS ORDERED: POTASSIUM CHLORIDE 20 MEQ ER TABLET PO ONE (17:00)
[2018-03-23 17:13] VITALS: BP 111/79
[2018-03-23 20:50] VITALS: BP 111/78
[2018-03-24 01:30] VITALS: BP 110/76
[2018-03-24] MEDS: LACTULOSE 20 GM/30 ML SOLUTION UDCUP PO SCH ×3 (01:38→16:55)
[2018-03-24] MEDS ORDERED: LORazepam 1 MG TABLET PO PRN (07:00)
[2018-03-24] MEDS: FERROUS SULFATE 325 MG EC TABLET PO SCH ×2 (07:02→16:50)
[2018-03-24 08:00] VITALS: BP 116/77
[2018-03-24 08:51] VITALS: BP 110/75
[2018-03-24] MEDS: FOLIC ACID 1 MG TABLET PO SCH (08:57)
[2018-03-24] MEDS: THIAMINE HCL 100 MG TABLET PO SCH ×2 (08:57→16:50)
[2018-03-24] MEDS: CITALOPRAM HYDROBROMIDE 20 MG TABLET PO SCH (08:57)
[2018-03-24] MEDS: MULTIVITAMINS WITH MINERALS, THERAPEUTIC TABLET PO SCH (08:57)
[2018-03-24] MEDS: LORazepam 1 MG TABLET PO SCH ×4 (08:57→20:55)
[2018-03-24] MEDS: GABAPENTIN 400 MG CAPSULE PO SCH ×3 (08:57→16:50)
[2018-03-24] MEDS: MAGNESIUM OXIDE 400 MG TABLET PO SCH ×3 (08:58→16:50)
[2018-03-24] MEDS: DOCUSATE SODIUM 100 MG CAPSULE PO SCH (08:58)
[2018-03-24] MEDS: OMEPRAZOLE 20 MG CAPSULE PO SCH (08:58)
[2018-03-24 09:02] LABS: ANION GAP 7 mmol/L (8-16); CALCIUM, TOTAL 8.6 mg/dL (8.8-10.5); CARBON DIOXIDE 27 mmol/L (22-29); CHLORIDE 102 mmol/L (98-107); GLOMERULAR FILTR. RATE CALC > 60 mL/min (>60); GLUCOSE,RANDOM 107 mg/dL (70-110); POTASSIUM 4.2 mmol/L (3.5-5.1); SODIUM SERUM 136 mmol/L (136-145); UREA NITROGEN, BLOOD 12 mg/dL (7-18)
[2018-03-24 16:02] VITALS: BP 114/70
[2018-03-24] MEDS: IBUPROFEN 600 MG TABLET PO PRN (16:04)
[2018-03-24 16:13] VITALS: BP 112/74
[2018-03-24] MEDS: ZOLPIDEM TARTRATE 10 MG TABLET PO PRN (21:49)
[2018-03-25] MEDS: LACTULOSE 20 GM/30 ML SOLUTION UDCUP PO SCH (00:07)
[2018-03-25 01:00] VITALS: BP 120/70
[2018-03-25] MEDS: FERROUS SULFATE 325 MG EC TABLET PO SCH ×2 (06:36→16:57)
[2018-03-25] MEDS ORDERED: LORazepam 1 MG TABLET PO PRN (07:00)
[2018-03-25 08:50] VITALS: BP 109/70
[2018-03-25] MEDS: THIAMINE HCL 100 MG TABLET PO SCH ×2 (09:31→16:56)
[2018-03-25] MEDS: GABAPENTIN 400 MG CAPSULE PO SCH ×3 (09:31→16:57)
[2018-03-25] MEDS: DOCUSATE SODIUM 100 MG CAPSULE PO SCH (09:31)
[2018-03-25] MEDS: OMEPRAZOLE 20 MG CAPSULE PO SCH (09:31)
[2018-03-25] MEDS: FOLIC ACID 1 MG TABLET PO SCH (09:31)
[2018-03-25] MEDS: MULTIVITAMINS WITH MINERALS, THERAPEUTIC TABLET PO SCH (09:31)
[2018-03-25] MEDS: CITALOPRAM HYDROBROMIDE 20 MG TABLET PO SCH (09:31)
[2018-03-25] MEDS: MAGNESIUM OXIDE 400 MG TABLET PO SCH ×3 (09:32→16:56)
[2018-03-25 11:04] VITALS: BP 118/62
[2018-03-25 12:43] VITALS: BP 104/72
[2018-03-25] MEDS: IBUPROFEN 600 MG TABLET PO PRN (12:45)
[2018-03-25 16:16] VITALS: BP 111/72
[2018-03-25] MEDS ORDERED: MAGNESIUM OXIDE 400 MG TABLET PO SCH (17:45)
[2018-03-26] MEDS: ZOLPIDEM TARTRATE 10 MG TABLET PO PRN (00:02)
[2018-03-26] MEDS: IBUPROFEN 600 MG TABLET PO PRN ×2 (00:02→08:22)
[2018-03-26 06:30] VITALS: BP 120/81
[2018-03-26] MEDS: FERROUS SULFATE 325 MG EC TABLET PO SCH ×2 (06:36→16:48)
[2018-03-26 08:00] VITALS: BP 112/67
[2018-03-26] MEDS: MULTIVITAMINS WITH MINERALS, THERAPEUTIC TABLET PO SCH (08:22)
[2018-03-26] MEDS: DOCUSATE SODIUM 100 MG CAPSULE PO SCH (08:23)
[2018-03-26] MEDS: FOLIC ACID 1 MG TABLET PO SCH (08:23)
[2018-03-26] MEDS: GABAPENTIN 400 MG CAPSULE PO SCH ×3 (08:23→16:48)
[2018-03-26] MEDS: MAGNESIUM OXIDE 400 MG TABLET PO SCH ×3 (08:23→16:48)
[2018-03-26] MEDS: CITALOPRAM HYDROBROMIDE 20 MG TABLET PO SCH (08:23)
[2018-03-26] MEDS: THIAMINE HCL 100 MG TABLET PO SCH ×2 (08:23→16:48)
[2018-03-26] MEDS: OMEPRAZOLE 20 MG CAPSULE PO SCH (08:23)
[2018-03-26 16:39] VITALS: BP 100/60
[2018-03-27] MEDS: LACTULOSE 20 GM/30 ML SOLUTION UDCUP PO SCH ×3 (00:02→16:00)
[2018-03-27 00:38] VITALS: BP 110/68
[2018-03-27] MEDS: FERROUS SULFATE 325 MG EC TABLET PO SCH ×2 (06:52→17:10)
[2018-03-27 08:00] VITALS: BP 104/64
[2018-03-27] MEDS: FOLIC ACID 1 MG TABLET PO SCH (08:40)
[2018-03-27] MEDS: OMEPRAZOLE 20 MG CAPSULE PO SCH (08:40)
[2018-03-27] MEDS: MULTIVITAMINS WITH MINERALS, THERAPEUTIC TABLET PO SCH (08:40)
[2018-03-27] MEDS: CITALOPRAM HYDROBROMIDE 20 MG TABLET PO SCH (08:40)
[2018-03-27] MEDS: THIAMINE HCL 100 MG TABLET PO SCH ×2 (08:40→17:10)
[2018-03-27] MEDS: GABAPENTIN 400 MG CAPSULE PO SCH ×3 (08:40→17:10)
[2018-03-27] MEDS: MAGNESIUM OXIDE 400 MG TABLET PO SCH ×3 (08:40→17:10)
[2018-03-27] MEDS: DOCUSATE SODIUM 100 MG CAPSULE PO SCH (08:40)
[2018-03-27 18:30] VITALS: BP 100/66
[2018-03-27 20:04] VITALS: BP 102/64
[2018-03-27] MEDS: IBUPROFEN 600 MG TABLET PO PRN (20:04)
[2018-03-28 01:08] VITALS: BP 118/70
[2018-03-28] MEDS: FERROUS SULFATE 325 MG EC TABLET PO SCH ×2 (06:36→16:12)
[2018-03-28] MEDS: LACTULOSE 20 GM/30 ML SOLUTION UDCUP PO SCH ×4 (08:00→16:00)
[2018-03-28 08:34] LABS: BASOPHILS % (AUTO) 3.3 % (0.0-2.0); EOSINOPHILS % (AUTO) 3.4 % (1.0-6.0); HEMATOCRIT 39.8 % (41-53); HEMOGLOBIN 13.4 g/dL (13.5-17.5); LYMPHOCYTES # (AUTO) 1.4 K/uL (1.0-4.8); LYMPHOCYTES % (AUTO) 32.4 % (22.0-44.0); MEAN CORPUSCULAR HGB CONC 33.5 G/dL (31.0-37.0); MEAN CORPUSCULAR VOLUME 96 fL (80-100); MONOCYTES % (AUTO) 22.5 % (2.0-9.0); NEUTROPHILS # (AUTO) 1.7 K/uL (1.8-7.7); NEUTROPHILS % (AUTO) 38.4 % (40.0-70.0); PLATELET COUNT (AUTO) 196 K/uL (150-450); RED BLOOD CELL COUNT(AUTO) 4.17 MIL/uL (4.50-5.90); RED CELL DISTRIBUTION WIDTH 16.5 % (11.5-14.5)
[2018-03-28 08:58] LABS: ALANINE AMINOTRANSFERASE 201 U/L (12-78); ALBUMIN 3.4 g/dL (3.4-5.0); ALKALINE PHOSPHATASE 115 U/L (46-116); ANION GAP 6 mmol/L (8-16); ASPARTATE AMINOTRANSFERASE 141 U/L (15-37); BILIRUBIN,TOTAL 0.3 mg/dL (0.1-1.0); CALCIUM, TOTAL 8.5 mg/dL (8.8-10.5); CARBON DIOXIDE 28 mmol/L (22-29); CHLORIDE 101 mmol/L (98-107); CHOL/HDL RATIO 2.2 (4.2-7.3); CHOLESTEROL 172 mg/dL (131-200); CREATININE 0.62 mg/dL (0.60-1.30); GLOMERULAR FILTR. RATE CALC > 60 mL/min (>60); GLUCOSE,RANDOM 92 mg/dL (70-110); HDL CHOLESTEROL 77 mg/dL (40-60); LDL CHOL (CALC.) 84 mg/dL (0-130); POTASSIUM 4.8 mmol/L (3.5-5.1); SODIUM SERUM 135 mmol/L (136-145); THYROID STIMULATING HORMONE 1.69 uIU/mL (0.36-3.74); TOTAL PROTEIN, SERUM 6.7 g/dL (6.4-8.2); TRIGLYCERIDES 57 mg/dL (15-150); UREA NITROGEN, BLOOD 20 mg/dL (7-18)
[2018-03-28] MEDS: DOCUSATE SODIUM 100 MG CAPSULE PO SCH ×2 (09:00→09:04)
[2018-03-28 09:04] VITALS: BP 100/63
[2018-03-28] MEDS: OMEPRAZOLE 20 MG CAPSULE PO SCH (09:04)
[2018-03-28] MEDS: THIAMINE HCL 100 MG TABLET PO SCH ×2 (09:04→16:12)
[2018-03-28] MEDS: MAGNESIUM OXIDE 400 MG TABLET PO SCH ×3 (09:04→16:13)
[2018-03-28] MEDS: FOLIC ACID 1 MG TABLET PO SCH (09:04)
[2018-03-28] MEDS: MULTIVITAMINS WITH MINERALS, THERAPEUTIC TABLET PO SCH (09:04)
[2018-03-28] MEDS: GABAPENTIN 400 MG CAPSULE PO SCH ×3 (09:04→16:12)
[2018-03-28] MEDS: CITALOPRAM HYDROBROMIDE 20 MG TABLET PO SCH (09:04)
[2018-03-28 16:17] VITALS: BP 101/65
[2018-03-28] MEDS: ZOLPIDEM TARTRATE 10 MG TABLET PO PRN (20:12)
[2018-03-29 06:27] VITALS: BP 99/67
[2018-03-29] MEDS: FERROUS SULFATE 325 MG EC TABLET PO SCH ×2 (06:48→16:09)
[2018-03-29] MEDS: GABAPENTIN 400 MG CAPSULE PO SCH ×3 (08:11→16:09)
[2018-03-29] MEDS: MULTIVITAMINS WITH MINERALS, THERAPEUTIC TABLET PO SCH (08:11)
[2018-03-29] MEDS: CITALOPRAM HYDROBROMIDE 20 MG TABLET PO SCH (08:11)
[2018-03-29] MEDS: MAGNESIUM OXIDE 400 MG TABLET PO SCH ×3 (08:11→16:09)
[2018-03-29] MEDS: THIAMINE HCL 100 MG TABLET PO SCH ×2 (08:11→16:09)
[2018-03-29] MEDS: OMEPRAZOLE 20 MG CAPSULE PO SCH (08:11)
[2018-03-29] MEDS: FOLIC ACID 1 MG TABLET PO SCH (08:11)
[2018-03-29] MEDS: LACTULOSE 20 GM/30 ML SOLUTION UDCUP PO SCH ×3 (08:13→16:09)
[2018-03-29] MEDS: DOCUSATE SODIUM 100 MG CAPSULE PO SCH (08:23)
[2018-03-29 08:25] VITALS: BP 100/67
[2018-03-29] MEDS: NICOTINE 21 MG/24 HOUR PATCH TD SCH (12:36)
[2018-03-29 17:18] VITALS: BP 137/65
[2018-03-30 05:58] VITALS: BP 110/63
[2018-03-30] MEDS: FERROUS SULFATE 325 MG EC TABLET PO SCH ×2 (06:34→16:23)
[2018-03-30 08:25] VITALS: BP 109/62
[2018-03-30] MEDS: THIAMINE HCL 100 MG TABLET PO SCH ×2 (08:36→16:23)
[2018-03-30] MEDS: GABAPENTIN 400 MG CAPSULE PO SCH ×3 (08:36→16:23)
[2018-03-30] MEDS: NICOTINE 21 MG/24 HOUR PATCH TD SCH (08:36)
[2018-03-30] MEDS: MAGNESIUM OXIDE 400 MG TABLET PO SCH ×3 (08:36→16:23)
[2018-03-30] MEDS: CITALOPRAM HYDROBROMIDE 20 MG TABLET PO SCH (08:36)
[2018-03-30] MEDS: FOLIC ACID 1 MG TABLET PO SCH (08:36)
[2018-03-30] MEDS: MULTIVITAMINS WITH MINERALS, THERAPEUTIC TABLET PO SCH (08:36)
[2018-03-30] MEDS: DOCUSATE SODIUM 100 MG CAPSULE PO SCH (08:36)
[2018-03-30] MEDS: OMEPRAZOLE 20 MG CAPSULE PO SCH (08:36)
[2018-03-30] MEDS: LACTULOSE 20 GM/30 ML SOLUTION UDCUP PO SCH ×3 (08:38→17:30)
[2018-03-30] MEDS: IBUPROFEN 600 MG TABLET PO PRN (08:59)
[2018-03-30 16:09] VITALS: BP 143/64
[2018-03-30] MEDS: ZOLPIDEM TARTRATE 10 MG TABLET PO PRN (20:29)
[2018-03-31 01:05] VITALS: BP 107/68
[2018-03-31] MEDS: FERROUS SULFATE 325 MG EC TABLET PO SCH ×2 (07:16→16:41)
[2018-03-31] MEDS: LACTULOSE 20 GM/30 ML SOLUTION UDCUP PO SCH ×3 (08:00→17:59)
[2018-03-31 08:18] VITALS: BP 108/65
[2018-03-31] MEDS: DOCUSATE SODIUM 100 MG CAPSULE PO SCH (08:50)
[2018-03-31] MEDS: OMEPRAZOLE 20 MG CAPSULE PO SCH (08:51)
[2018-03-31] MEDS: MULTIVITAMINS WITH MINERALS, THERAPEUTIC TABLET PO SCH (08:51)
[2018-03-31] MEDS: CITALOPRAM HYDROBROMIDE 20 MG TABLET PO SCH (08:51)
[2018-03-31] MEDS: MAGNESIUM OXIDE 400 MG TABLET PO SCH ×3 (08:51→16:41)
[2018-03-31] MEDS: GABAPENTIN 400 MG CAPSULE PO SCH ×3 (08:52→16:41)
[2018-03-31] MEDS: NICOTINE 21 MG/24 HOUR PATCH TD SCH (08:52)
[2018-03-31 16:00] VITALS: BP 118/72
[2018-03-31] MEDS: ClonazePAM 1 MG TABLET PO SCH (16:41)
[2018-03-31] MEDS ORDERED: CITA40TA14 PO (22:30)
[2018-03-31] MEDS ORDERED: CLON1 PO (22:30)
[2018-04-01] MEDS ORDERED: MAGOX PO (01:54)
[2018-04-01] MEDS ORDERED: MULT-1239 PO (01:54)
[2018-04-01] MEDS ORDERED: DSS100 PO (01:54)
[2018-04-01 03:06] VITALS: BP 105/61
[2018-04-01] MEDS ORDERED: LACT30L PO (05:03)
[2018-04-01] MEDS: FERROUS SULFATE 325 MG EC TABLET PO SCH (06:35)
[2018-04-01 08:24] VITALS: BP 109/62
[2018-04-01] MEDS: GABAPENTIN 400 MG CAPSULE PO SCH (09:15)
[2018-04-01] MEDS: DOCUSATE SODIUM 100 MG CAPSULE PO SCH (09:15)
[2018-04-01] MEDS: LACTULOSE 20 GM/30 ML SOLUTION UDCUP PO SCH ×2 (09:15)
[2018-04-01] MEDS: MAGNESIUM OXIDE 400 MG TABLET PO SCH (09:15)
[2018-04-01] MEDS: ClonazePAM 1 MG TABLET PO SCH (09:15)
[2018-04-01] MEDS: OMEPRAZOLE 20 MG CAPSULE PO SCH (09:16)
[2018-04-01] MEDS: MULTIVITAMINS WITH MINERALS, THERAPEUTIC TABLET PO SCH (09:16)
[2018-04-01] MEDS: CITALOPRAM HYDROBROMIDE 20 MG TABLET PO SCH (09:17)
[2018-04-01] MEDS: NICOTINE 21 MG/24 HOUR PATCH TD SCH (09:18)
== END 2018-04-01 09:29 | disposition home or self-care (01) | DRG 751 ==
LOC: EMS 14:21 → B2S 03-21 06:32
PROVIDERS: ADMIT Psychiatry & Neurology Psychiatry; ATTEND Psychiatry & Neurology Psychiatry
DX: F33.2 Major depressive disorder, recurrent severe without psychotic features (principal); D61.818 Other pancytopenia; K85.90 Acute pancreatitis without necrosis or infection, unspecified; E44.0 Moderate protein-calorie malnutrition; E72.20 Disorder of urea cycle metabolism, unspecified; R45.851 Suicidal ideations; K86.1 Other chronic pancreatitis; D50.9 Iron deficiency anemia, unspecified; E55.9 Vitamin D deficiency, unspecified; F10.229 Alcohol dependence with intoxication, unspecified; F17.210 Nicotine dependence, cigarettes, uncomplicated; J44.9 Chronic obstructive pulmonary disease, unspecified; E78.00 Pure hypercholesterolemia, unspecified; E87.6 Hypokalemia; F10.239 Alcohol dependence with withdrawal, unspecified; Y90.8 Blood alcohol level of 240 mg/100 ml or more; R25.1 Tremor, unspecified; F19.90 Other psychoactive substance use, unspecified, uncomplicated; G47.00 Insomnia, unspecified; K21.9 Gastro-esophageal reflux disease without esophagitis; Z68.1 Body mass index [BMI] 19.9 or less, adult; Z59.0 Homelessness; Z79.899 Other long term (current) drug therapy; Z91.5 Personal history of self-harm; Z91.030 Bee allergy status; Z71.41 Alcohol abuse counseling and surveillance of alcoholic; Z71.6 Tobacco abuse counseling
CPT/HCPCS: 83036; 83540; 83550; 83735; 84100; 84443; 85007; 99285; G0480; J2060; J3420; Q0162

== ENCOUNTER 2018-09-25 23:50 | Inpatient (IN) | payer MEDICAID, OTHER ==
[~2018-09-25] VITALS: Ht 175.3 cm; Wt 57.2 kg
[~2018-09-25 23:50] MED LIST changes: -CITA10TA68 PO; +CITA40TA14 PO; -GABA-529 PO; +GABA-533 PO; -LACT30L PO; -MULT-248 PO; -NICO-704 TD; -OMEP20 PO; +QUET200T PO; -RISP.5 PO
[2018-09-26] MEDS ORDERED: QUEtiapine FUMARATE 100 MG TABLET PO ONE (02:00)
[2018-09-26] MEDS ORDERED: LORazepam 2 MG TABLET PO PRN ×2 (02:15→14:00)
[2018-09-26 02:23] LABS: BASOPHILS % (AUTO) 0.8 % (0.0-2.0); EOSINOPHILS % (AUTO) 5.1 % (1.0-6.0); HEMATOCRIT 43.6 % (41-53); HEMOGLOBIN 14.9 g/dL (13.5-17.5); LYMPHOCYTES # (AUTO) 2.1 K/uL (1.0-4.8); LYMPHOCYTES % (AUTO) 55.8 % (22.0-44.0); MEAN CORPUSCULAR HEMOGLOBIN 32.3 pg (26.0-34.0); MEAN CORPUSCULAR HGB CONC 34.1 G/dL (31.0-37.0); MEAN CORPUSCULAR VOLUME 95 fL (80-100); MONOCYTES # (AUTO) 0.4 K/uL (0.1-1.0); MONOCYTES % (AUTO) 9.7 % (2.0-9.0); NEUTROPHILS # (AUTO) 1.1 K/uL (1.8-7.7); NEUTROPHILS % (AUTO) 28.6 % (40.0-70.0); RED BLOOD CELL COUNT(AUTO) 4.61 MIL/uL (4.50-5.90); RED CELL DISTRIBUTION WIDTH 15.8 % (11.5-14.5)
[2018-09-26 02:24] LABS: ANION GAP 6 mmol/L (8-16); CALCIUM, TOTAL 8.3 mg/dL (8.8-10.5); CARBON DIOXIDE 34 mmol/L (22-29); CHLORIDE 102 mmol/L (98-107); CREATININE 0.68 mg/dL (0.60-1.30); GLOMERULAR FILTR. RATE CALC > 60 mL/min (>60); GLUCOSE,RANDOM 89 mg/dL (70-110); POTASSIUM 3.8 mmol/L (3.5-5.1); SODIUM SERUM 142 mmol/L (136-145); UREA NITROGEN, BLOOD 6 mg/dL (7-18)
[2018-09-26 02:30] LABS: ALANINE AMINOTRANSFERASE 64 U/L (12-78); ALBUMIN 3.6 g/dL (3.4-5.0); ALKALINE PHOSPHATASE 93 U/L (46-116); ASPARTATE AMINOTRANSFERASE 97 U/L (15-37); BILIRUBIN,TOTAL 0.4 mg/dL (0.1-1.0); TOTAL PROTEIN, SERUM 7.2 g/dL (6.4-8.2)
[2018-09-26 02:34] LABS: PLATELET COUNT (AUTO) 85 K/uL (150-450)
[2018-09-26] MEDS ORDERED: SODIUM CHLORIDE 0.9% 1,000 ML IV ONE (07:00)
[2018-09-26 11:26] VITALS: BP 109/77
[2018-09-26 11:34] VITALS: BP 109/77
[2018-09-26 12:26] VITALS: BP 113/64
[2018-09-26 13:26] VITALS: BP 115/72
[2018-09-26] MEDS ORDERED: ONDANSETRON HCL 4 MG TABLET PO PRN (14:15)
[2018-09-26] MEDS ORDERED: LOPERAMIDE HCL 2 MG CAPSULE PO PRN (14:15)
[2018-09-26] MEDS ORDERED: PETROLATUM,WHITE 71 GM JELLY TP PRN (14:15)
[2018-09-26] MEDS ORDERED: MAGNESIUM HYDROXIDE SUSPENSION 30 ML UDCUP PO PRN (14:15)
[2018-09-26] MEDS ORDERED: ALBUTEROL SULFATE HFA 90 MCG/PUFF 8 GM INHALER IH PRN (14:15)
[2018-09-26] MEDS ORDERED: DOCUSATE SODIUM 100 MG CAPSULE PO PRN (14:15)
[2018-09-26] MEDS ORDERED: GuaiFENesin/D-METHORPHAN [SUGAR-FREE] 200-20MG/10 ML SYRUP UDCUP PO PRN (14:15)
[2018-09-26] MEDS ORDERED: IBUPROFEN 400 MG TABLET PO PRN (14:15)
[2018-09-26] MEDS ORDERED: MAG HYDROX/AL HYDROX/SIMETH ES 30 ML SUSPENSION UDCUP PO PRN (14:15)
[2018-09-26] MEDS ORDERED: NICOTINE 14 MG/24 HOUR PATCH TD PRN (14:15)
[2018-09-26] MEDS ORDERED: CloNIDine HCL 0.1 MG TABLET PO PRN (14:15)
[2018-09-26] MEDS ORDERED: ACETAMINOPHEN 325 MG TABLET PO PRN (14:15)
[2018-09-26 16:00] VITALS: BP 120/86
[2018-09-26] MEDS: GABAPENTIN 400 MG CAPSULE PO SCH (17:13)
[2018-09-26 18:54] VITALS: BP 11/74
[2018-09-26] MEDS: QUEtiapine FUMARATE 200 MG TABLET PO SCH (20:32)
[2018-09-27] VITALS (10 sets, daily range): BP systolic 96–127; BP diastolic 69–96
[2018-09-27] MEDS ORDERED: LORazepam 2 MG TABLET PO PRN (07:00)
[2018-09-27 07:19] LABS: BASOPHILS % (AUTO) 0.4 % (0.0-2.0); HEMATOCRIT 40.7 % (41-53); HEMOGLOBIN 14.3 g/dL (13.5-17.5); LYMPHOCYTES # (AUTO) 1.3 K/uL (1.0-4.8); LYMPHOCYTES % (AUTO) 28.2 % (22.0-44.0); MEAN CORPUSCULAR HEMOGLOBIN 32.6 pg (26.0-34.0); MEAN CORPUSCULAR VOLUME 93 fL (80-100); MONOCYTES # (AUTO) 0.4 K/uL (0.1-1.0); MONOCYTES % (AUTO) 7.9 % (2.0-9.0); NEUTROPHILS # (AUTO) 2.7 K/uL (1.8-7.7); NEUTROPHILS % (AUTO) 59.5 % (40.0-70.0); PLATELET COUNT (AUTO) 57 K/uL (150-450); RED BLOOD CELL COUNT(AUTO) 4.37 MIL/uL (4.50-5.90)
[2018-09-27 07:53] LABS: HEMOGLOBIN A1C 5.7 % (4.5-6.2)
[2018-09-27 08:11] LABS: ALANINE AMINOTRANSFERASE 54 U/L (12-78); ALBUMIN 3.4 g/dL (3.4-5.0); ALKALINE PHOSPHATASE 101 U/L (46-116); ANION GAP 10 mmol/L (8-16); ASPARTATE AMINOTRANSFERASE 69 U/L (15-37); BILIRUBIN,TOTAL 1.2 mg/dL (0.1-1.0); CALCIUM, TOTAL 8.7 mg/dL (8.8-10.5); CARBON DIOXIDE 28 mmol/L (22-29); CHLORIDE 98 mmol/L (98-107); CHOLESTEROL 223 mg/dL (131-200); CREATININE 0.74 mg/dL (0.60-1.30); FREE T4 (FREE THYROXINE) 0.78 ng/dL (0.76-1.46); GLOMERULAR FILTR. RATE CALC > 60 mL/min (>60); GLUCOSE,RANDOM 94 mg/dL (70-110); POTASSIUM 3.6 mmol/L (3.5-5.1); SODIUM SERUM 136 mmol/L (136-145); THYROID STIMULATING HORMONE 0.85 uIU/mL (0.36-3.74); TOTAL PROTEIN, SERUM 6.6 g/dL (6.4-8.2); TRIGLYCERIDES 97 mg/dL (15-150); UREA NITROGEN, BLOOD 9 mg/dL (7-18)
[2018-09-27] MEDS: GABAPENTIN 400 MG CAPSULE PO SCH ×3 (08:58→18:20)
[2018-09-27] MEDS: CITALOPRAM HYDROBROMIDE 20 MG TABLET PO SCH (08:58)
[2018-09-27] MEDS: LORazepam 2 MG TABLET PO SCH ×4 (08:58→20:57)
[2018-09-27 09:04] LABS: CHOL/HDL RATIO 1.3 (4.2-7.3); HDL CHOLESTEROL 169 mg/dL (40-60); LDL CHOL (CALC.) 35 mg/dL (0-130)
[2018-09-27] MEDS: QUEtiapine FUMARATE 200 MG TABLET PO SCH (20:57)
[2018-09-28] VITALS (8 sets, daily range): BP systolic 107–141; BP diastolic 69–88
[2018-09-28] MEDS: HALOPERIDOL 5 MG TABLET PO PRN (00:44)
[2018-09-28] MEDS: CITALOPRAM HYDROBROMIDE 20 MG TABLET PO SCH (08:38)
[2018-09-28] MEDS: GABAPENTIN 400 MG CAPSULE PO SCH ×3 (08:38→17:17)
[2018-09-28] MEDS: LORazepam 2 MG TABLET PO SCH ×4 (08:38→21:03)
[2018-09-28] MEDS: QUEtiapine FUMARATE 200 MG TABLET PO SCH (21:03)
[2018-09-29 02:04] VITALS: BP 106/76
[2018-09-29 02:05] VITALS: BP 106/76
[2018-09-29] MEDS ORDERED: LORazepam 1 MG TABLET PO PRN (07:00)
[2018-09-29 08:20] VITALS: BP 100/64
[2018-09-29 08:22] VITALS: BP 100/64
[2018-09-29] MEDS: GABAPENTIN 400 MG CAPSULE PO SCH ×3 (08:25→16:04)
[2018-09-29] MEDS: LORazepam 1 MG TABLET PO SCH ×4 (08:25→20:10)
[2018-09-29] MEDS: CITALOPRAM HYDROBROMIDE 20 MG TABLET PO SCH (08:25)
[2018-09-29] MEDS: LACTULOSE 20 GM/30 ML SOLUTION UDCUP PO SCH (11:09)
[2018-09-29 16:00] VITALS: BP 116/79
[2018-09-29 17:47] VITALS: BP 102/69
[2018-09-29] MEDS: QUEtiapine FUMARATE 200 MG TABLET PO SCH (20:10)
[2018-09-30] MEDS: ZOLPIDEM TARTRATE 10 MG TABLET PO PRN (00:40)
[2018-09-30 02:05] VITALS: BP 104/74
[2018-09-30 02:06] VITALS: BP 104/74
[2018-09-30] MEDS: HALOPERIDOL 5 MG TABLET PO PRN (02:43)
[2018-09-30] MEDS ORDERED: LORazepam 1 MG TABLET PO PRN (07:00)
[2018-09-30] MEDS: LACTULOSE 20 GM/30 ML SOLUTION UDCUP PO SCH (08:05)
[2018-09-30] MEDS: CITALOPRAM HYDROBROMIDE 20 MG TABLET PO SCH (08:05)
[2018-09-30] MEDS: GABAPENTIN 400 MG CAPSULE PO SCH ×3 (08:05→16:02)
[2018-09-30 08:25] VITALS: BP 105/64
[2018-09-30 16:00] VITALS: BP 104/72
[2018-09-30 16:01] VITALS: BP 104/72
[2018-09-30] MEDS: QUEtiapine FUMARATE 200 MG TABLET PO SCH (20:34)
[2018-10-01 01:38] VITALS: BP 100/60
[2018-10-01 01:39] VITALS: BP 100/60
[2018-10-01 08:00] VITALS: BP 114/74
[2018-10-01] MEDS: GABAPENTIN 400 MG CAPSULE PO SCH ×3 (08:20→15:51)
[2018-10-01] MEDS: LACTULOSE 20 GM/30 ML SOLUTION UDCUP PO SCH (08:21)
[2018-10-01] MEDS: CITALOPRAM HYDROBROMIDE 20 MG TABLET PO SCH (08:21)
[2018-10-01] MEDS: HALOPERIDOL 5 MG TABLET PO PRN ×2 (08:22→16:39)
[2018-10-01] MEDS: DISULFIRAM 250 MG TABLET PO SCH (11:19)
[2018-10-01 16:13] VITALS: BP 105/61
[2018-10-01] MEDS: QUEtiapine FUMARATE 200 MG TABLET PO SCH (19:32)
[2018-10-02 07:03] VITALS: BP 107/66
[2018-10-02 08:08] VITALS: BP 107/62
[2018-10-02] MEDS: GABAPENTIN 400 MG CAPSULE PO SCH ×3 (08:57→16:27)
[2018-10-02] MEDS: CITALOPRAM HYDROBROMIDE 20 MG TABLET PO SCH (08:57)
[2018-10-02] MEDS: DISULFIRAM 250 MG TABLET PO SCH (08:57)
[2018-10-02] MEDS: LACTULOSE 20 GM/30 ML SOLUTION UDCUP PO SCH (08:57)
[2018-10-02] MEDS: HALOPERIDOL 5 MG TABLET PO PRN ×2 (09:34→16:26)
[2018-10-02] MEDS ORDERED: LORazepam 1 MG TABLET PO PRN (16:00)
[2018-10-02 16:18] VITALS: BP 107/74
[2018-10-02] MEDS: LORazepam 2 MG TABLET PO PRN (16:33)
[2018-10-02] MEDS: ZOLPIDEM TARTRATE 10 MG TABLET PO PRN (20:31)
[2018-10-02] MEDS: QUEtiapine FUMARATE 200 MG TABLET PO SCH (20:31)
[2018-10-03 07:16] VITALS: BP 110/68
[2018-10-03 08:03] VITALS: BP 111/68
[2018-10-03] MEDS: CITALOPRAM HYDROBROMIDE 20 MG TABLET PO SCH (08:53)
[2018-10-03] MEDS: FOLIC ACID 1 MG TABLET PO SCH (08:53)
[2018-10-03] MEDS: GABAPENTIN 400 MG CAPSULE PO SCH ×3 (08:53→16:32)
[2018-10-03] MEDS: THIAMINE HCL 100 MG TABLET PO SCH (08:53)
[2018-10-03] MEDS: LACTULOSE 20 GM/30 ML SOLUTION UDCUP PO SCH (08:54)
[2018-10-03] MEDS: MULTIVITAMINS WITH MINERALS, THERAPEUTIC TABLET PO SCH (08:54)
[2018-10-03] MEDS: DISULFIRAM 250 MG TABLET PO SCH (08:55)
[2018-10-03 16:12] VITALS: BP 112/84
[2018-10-03] MEDS: HALOPERIDOL 5 MG TABLET PO PRN (16:32)
[2018-10-03] MEDS: LORazepam 2 MG TABLET PO PRN (16:32)
[2018-10-03] MEDS: QUEtiapine FUMARATE 200 MG TABLET PO SCH (21:00)
[2018-10-04 00:39] VITALS: BP 103/71
[2018-10-04] MEDS: CITALOPRAM HYDROBROMIDE 20 MG TABLET PO SCH (08:12)
[2018-10-04] MEDS: GABAPENTIN 400 MG CAPSULE PO SCH ×3 (08:12→16:00)
[2018-10-04] MEDS: FOLIC ACID 1 MG TABLET PO SCH (08:12)
[2018-10-04] MEDS: MULTIVITAMINS WITH MINERALS, THERAPEUTIC TABLET PO SCH (08:12)
[2018-10-04] MEDS: THIAMINE HCL 100 MG TABLET PO SCH (08:12)
[2018-10-04] MEDS: LACTULOSE 20 GM/30 ML SOLUTION UDCUP PO SCH (08:12)
[2018-10-04] MEDS: DISULFIRAM 250 MG TABLET PO SCH (08:13)
[2018-10-04 08:17] VITALS: BP 106/72
[2018-10-04 16:23] VITALS: BP 102/66
[2018-10-04] MEDS: LORazepam 2 MG TABLET PO PRN (16:48)
[2018-10-04] MEDS: QUEtiapine FUMARATE 200 MG TABLET PO SCH (20:07)
[2018-10-05 00:30] VITALS: BP 101/60
[2018-10-05 08:13] VITALS: BP 101/64
[2018-10-05] MEDS: LACTULOSE 20 GM/30 ML SOLUTION UDCUP PO SCH (08:15)
[2018-10-05] MEDS: THIAMINE HCL 100 MG TABLET PO SCH (08:15)
[2018-10-05] MEDS: FOLIC ACID 1 MG TABLET PO SCH (08:15)
[2018-10-05] MEDS: GABAPENTIN 400 MG CAPSULE PO SCH ×3 (08:15→16:37)
[2018-10-05] MEDS: CITALOPRAM HYDROBROMIDE 20 MG TABLET PO SCH (08:15)
[2018-10-05] MEDS: MULTIVITAMINS WITH MINERALS, THERAPEUTIC TABLET PO SCH (08:15)
[2018-10-05] MEDS: DISULFIRAM 250 MG TABLET PO SCH (08:16)
[2018-10-05] MEDS: LORazepam 2 MG TABLET PO PRN (12:16)
[2018-10-05 16:20] VITALS: BP 125/64
[2018-10-05] MEDS: QUEtiapine FUMARATE 200 MG TABLET PO SCH (20:06)
[2018-10-06] MEDS ORDERED: DISU250T6 PO ×2 (02:09→02:10)
[2018-10-06 05:43] VITALS: BP 105/74
== END 2018-10-06 07:24 | disposition home or self-care (01) | DRG 751 ==
LOC: EMS 23:51 → B2S 09-26 07:33
PROVIDERS: ADMIT Psychiatry & Neurology Psychiatry; ATTEND Psychiatry & Neurology Psychiatry
DX: F33.2 Major depressive disorder, recurrent severe without psychotic features (principal); K72.90 Hepatic failure, unspecified without coma; F25.9 Schizoaffective disorder, unspecified; K21.9 Gastro-esophageal reflux disease without esophagitis; F17.210 Nicotine dependence, cigarettes, uncomplicated; R45.87 Impulsiveness; B18.2 Chronic viral hepatitis C; K59.00 Constipation, unspecified; E78.5 Hyperlipidemia, unspecified; J44.9 Chronic obstructive pulmonary disease, unspecified; D64.9 Anemia, unspecified; F10.229 Alcohol dependence with intoxication, unspecified; Z59.0 Homelessness; Z88.8 Allergy status to other drugs, medicaments and biological substances; Z91.5 Personal history of self-harm
CPT/HCPCS: 83036; 84439; 84443; 87081; G0480

== ENCOUNTER 2018-11-11 02:33 | Inpatient (IN) | payer MEDICAID, OTHER ==
[2018-11-11] VITALS (8 sets, daily range): BP systolic 91–121; BP diastolic 60–80
[~2018-11-11] VITALS: Ht 170.2 cm; Wt 57.6 kg
[~2018-11-11 02:33] MED LIST changes: +DISU250T6 PO; -FERR-89 PO
[2018-11-11 04:27] LABS: ANION GAP 12 mmol/L (8-16); CALCIUM, TOTAL 8.5 mg/dL (8.8-10.5); CARBON DIOXIDE 30 mmol/L (22-29); CHLORIDE 102 mmol/L (98-107); CREATININE 0.68 mg/dL (0.60-1.30); GLOMERULAR FILTR. RATE CALC > 60 mL/min (>60); GLUCOSE,RANDOM 91 mg/dL (70-110); POTASSIUM 3.7 mmol/L (3.5-5.1); SODIUM SERUM 144 mmol/L (136-145); UREA NITROGEN, BLOOD 9 mg/dL (7-18)
[2018-11-11 04:30] LABS: BASOPHILS % (AUTO) 1.5 % (0.0-2.0); EOSINOPHILS % (AUTO) 2.7 % (1.0-6.0); HEMOGLOBIN 14.8 g/dL (13.5-17.5); LYMPHOCYTES # (AUTO) 1.4 K/uL (1.0-4.8); LYMPHOCYTES % (AUTO) 48.1 % (22.0-44.0); MEAN CORPUSCULAR HEMOGLOBIN 32.5 pg (26.0-34.0); MEAN CORPUSCULAR HGB CONC 34.5 G/dL (31.0-37.0); MEAN CORPUSCULAR VOLUME 94 fL (80-100); MONOCYTES # (AUTO) 0.3 K/uL (0.1-1.0); MONOCYTES % (AUTO) 10.4 % (2.0-9.0); NEUTROPHILS # (AUTO) 1.1 K/uL (1.8-7.7); NEUTROPHILS % (AUTO) 37.3 % (40.0-70.0); RED BLOOD CELL COUNT(AUTO) 4.57 MIL/uL (4.50-5.90)
[2018-11-11 04:32] LABS: ALANINE AMINOTRANSFERASE 48 U/L (12-78); ALBUMIN 3.5 g/dL (3.4-5.0); ALKALINE PHOSPHATASE 105 U/L (46-116); ASPARTATE AMINOTRANSFERASE 90 U/L (15-37); BILIRUBIN,TOTAL 0.6 mg/dL (0.1-1.0); TOTAL PROTEIN, SERUM 7.2 g/dL (6.4-8.2)
[2018-11-11 04:41] LABS: PLATELET COUNT (AUTO) 79 K/uL (150-450)
[2018-11-11] MEDS ORDERED: HALOPERIDOL 5 MG TABLET PO ONE (04:45)
[2018-11-11] MEDS ORDERED: HALOPERIDOL 5 MG TABLET PO PRN (05:00)
[2018-11-11] MEDS: LORazepam 2 MG TABLET PO PRN (13:00)
[2018-11-11] MEDS ORDERED: MAG HYDROX/AL HYDROX/SIMETH ES 30 ML SUSPENSION UDCUP PO PRN (14:45)
[2018-11-11] MEDS ORDERED: GuaiFENesin/D-METHORPHAN [SUGAR-FREE] 200-20MG/10 ML SYRUP UDCUP PO PRN (14:45)
[2018-11-11] MEDS ORDERED: MAGNESIUM HYDROXIDE SUSPENSION 30 ML UDCUP PO PRN (14:45)
[2018-11-11] MEDS ORDERED: CloNIDine HCL 0.1 MG TABLET PO PRN (14:45)
[2018-11-11] MEDS ORDERED: IBUPROFEN 400 MG TABLET PO PRN (14:45)
[2018-11-11] MEDS ORDERED: ALBUTEROL SULFATE HFA 90 MCG/PUFF 8 GM INHALER IH PRN (14:45)
[2018-11-11] MEDS ORDERED: NICOTINE 14 MG/24 HOUR PATCH TD PRN (14:45)
[2018-11-11] MEDS ORDERED: PETROLATUM,WHITE 71 GM JELLY TP PRN (14:45)
[2018-11-11] MEDS ORDERED: DOCUSATE SODIUM 100 MG CAPSULE PO PRN (14:45)
[2018-11-11] MEDS ORDERED: LOPERAMIDE HCL 2 MG CAPSULE PO PRN (14:45)
[2018-11-11] MEDS ORDERED: ACETAMINOPHEN 325 MG TABLET PO PRN (14:45)
[2018-11-11] MEDS ORDERED: ONDANSETRON HCL 4 MG TABLET PO PRN (14:45)
[2018-11-11] MEDS: ChlordiazePOXIDE HCL 25 MG CAPSULE PO PRN ×2 (16:52→20:46)
[2018-11-12] VITALS (7 sets, daily range): BP systolic 107–121; BP diastolic 64–76
[2018-11-12] MEDS: ChlordiazePOXIDE HCL 25 MG CAPSULE PO PRN ×2 (00:03→03:34)
[2018-11-12] MEDS ORDERED: ChlordiazePOXIDE HCL 25 MG CAPSULE PO PRN (07:00)
[2018-11-12] MEDS: ChlordiazePOXIDE HCL 25 MG CAPSULE PO SCH ×4 (08:42→20:37)
[2018-11-12] MEDS: CITALOPRAM HYDROBROMIDE 20 MG TABLET PO SCH (11:26)
[2018-11-12] MEDS: GABAPENTIN 400 MG CAPSULE PO SCH ×2 (13:17→16:17)
[2018-11-12] MEDS: QUEtiapine FUMARATE 200 MG TABLET PO SCH (20:37)
[2018-11-13 02:51] VITALS: BP 103/62
[2018-11-13 06:59] VITALS: BP 108/70
[2018-11-13] MEDS: CITALOPRAM HYDROBROMIDE 20 MG TABLET PO SCH (08:35)
[2018-11-13] MEDS: ChlordiazePOXIDE HCL 25 MG CAPSULE PO SCH ×4 (08:35→20:50)
[2018-11-13] MEDS: GABAPENTIN 400 MG CAPSULE PO SCH ×3 (08:36→17:25)
[2018-11-13] MEDS: FOLIC ACID 1 MG TABLET PO SCH (08:36)
[2018-11-13 09:20] LABS: CHOLESTEROL 214 mg/dL (131-200); LIPASE 221 U/L (73-393); TRIGLYCERIDES 96 mg/dL (15-150)
[2018-11-13 09:25] LABS: HEMOGLOBIN A1C 5.6 % (4.5-6.2)
[2018-11-13 09:50] LABS: CHOL/HDL RATIO 1.3 (4.2-7.3); HDL CHOLESTEROL 162 mg/dL (40-60); LDL CHOL (CALC.) 33 mg/dL (0-130)
[2018-11-13 10:29] VITALS: BP 104/65
[2018-11-13 10:30] VITALS: BP 104/65
[2018-11-13 16:02] VITALS: BP 106/64
[2018-11-13 18:37] VITALS: BP 106/64
[2018-11-13] MEDS: QUEtiapine FUMARATE 200 MG TABLET PO SCH (20:50)
[2018-11-14 00:08] VITALS: BP 98/62
[2018-11-14 00:14] VITALS: BP 98/62
[2018-11-14] MEDS ORDERED: ChlordiazePOXIDE HCL 10 MG CAPSULE PO PRN (07:00)
[2018-11-14 08:21] LABS: ALANINE AMINOTRANSFERASE 54 U/L (12-78); ALKALINE PHOSPHATASE 84 U/L (46-116); ANION GAP 11 mmol/L (8-16); ASPARTATE AMINOTRANSFERASE 97 U/L (15-37); BILIRUBIN,TOTAL 0.7 mg/dL (0.1-1.0); CALCIUM, TOTAL 8.7 mg/dL (8.8-10.5); CARBON DIOXIDE 23 mmol/L (22-29); CHLORIDE 103 mmol/L (98-107); GLOMERULAR FILTR. RATE CALC > 60 mL/min (>60); GLUCOSE,RANDOM 103 mg/dL (70-110); POTASSIUM 3.7 mmol/L (3.5-5.1); SODIUM SERUM 137 mmol/L (136-145); TOTAL PROTEIN, SERUM 6.6 g/dL (6.4-8.2); UREA NITROGEN, BLOOD 20 mg/dL (7-18)
[2018-11-14 08:26] VITALS: BP 84/50
[2018-11-14] MEDS: FOLIC ACID 1 MG TABLET PO SCH (09:08)
[2018-11-14] MEDS: ChlordiazePOXIDE HCL 10 MG CAPSULE PO SCH ×4 (09:08→20:29)
[2018-11-14] MEDS: CITALOPRAM HYDROBROMIDE 20 MG TABLET PO SCH (09:08)
[2018-11-14] MEDS: GABAPENTIN 400 MG CAPSULE PO SCH ×3 (09:09→16:37)
[2018-11-14 09:30] VITALS: BP 103/51
[2018-11-14 16:02] VITALS: BP 102/61
[2018-11-14 17:40] VITALS: BP 102/61
[2018-11-14] MEDS: QUEtiapine FUMARATE 200 MG TABLET PO SCH (20:29)
[2018-11-14] MEDS: ZOLPIDEM TARTRATE 10 MG TABLET PO PRN (20:31)
[2018-11-15 04:00] VITALS: BP 110/73
[2018-11-15 05:53] VITALS: BP 110/74
[2018-11-15] MEDS ORDERED: ChlordiazePOXIDE HCL 10 MG CAPSULE PO PRN (07:00)
[2018-11-15 08:04] LABS: BASOPHILS % (AUTO) 1.1 % (0.0-2.0); EOSINOPHILS % (AUTO) 3.4 % (1.0-6.0); HEMATOCRIT 39.5 % (41-53); HEMOGLOBIN 13.2 g/dL (13.5-17.5); LYMPHOCYTES # (AUTO) 1.1 K/uL (1.0-4.8); LYMPHOCYTES % (AUTO) 29.4 % (22.0-44.0); MEAN CORPUSCULAR HGB CONC 33.4 G/dL (31.0-37.0); MEAN CORPUSCULAR VOLUME 96 fL (80-100); MONOCYTES # (AUTO) 0.5 K/uL (0.1-1.0); NEUTROPHILS % (AUTO) 52.1 % (40.0-70.0); PLATELET COUNT (AUTO) 93 K/uL (150-450); RED BLOOD CELL COUNT(AUTO) 4.13 MIL/uL (4.50-5.90); RED CELL DISTRIBUTION WIDTH 17.8 % (11.5-14.5)
[2018-11-15 08:19] VITALS: BP 102/76
[2018-11-15 08:20] VITALS: BP 102/76
[2018-11-15] MEDS: FOLIC ACID 1 MG TABLET PO SCH (08:30)
[2018-11-15] MEDS: CITALOPRAM HYDROBROMIDE 20 MG TABLET PO SCH (08:31)
[2018-11-15] MEDS: GABAPENTIN 400 MG CAPSULE PO SCH ×3 (08:31→16:38)
[2018-11-15] MEDS: LACTULOSE 20 GM/30 ML SOLUTION UDCUP PO SCH (10:32)
[2018-11-15 16:01] VITALS: BP 105/64
[2018-11-15 17:00] VITALS: BP 105/64
[2018-11-15] MEDS: LORazepam 2 MG TABLET PO PRN (18:53)
[2018-11-15] MEDS: QUEtiapine FUMARATE 200 MG TABLET PO SCH (20:09)
[2018-11-16 02:26] VITALS: BP 110/60
[2018-11-16 02:27] VITALS: BP 110/60
[2018-11-16 08:25] VITALS: BP 108/65
[2018-11-16] MEDS: FOLIC ACID 1 MG TABLET PO SCH (09:01)
[2018-11-16] MEDS: GABAPENTIN 400 MG CAPSULE PO SCH ×3 (09:01→17:05)
[2018-11-16] MEDS: LACTULOSE 20 GM/30 ML SOLUTION UDCUP PO SCH (09:01)
[2018-11-16] MEDS: CITALOPRAM HYDROBROMIDE 20 MG TABLET PO SCH (09:01)
[2018-11-16 16:11] VITALS: BP 108/71
[2018-11-16 17:20] VITALS: BP 118/84
[2018-11-16] MEDS: QUEtiapine FUMARATE 200 MG TABLET PO SCH (20:38)
[2018-11-17 01:55] VITALS: BP 100/60
[2018-11-17 08:13] VITALS: BP 104/53
[2018-11-17] MEDS: CITALOPRAM HYDROBROMIDE 20 MG TABLET PO SCH (09:23)
[2018-11-17] MEDS: FOLIC ACID 1 MG TABLET PO SCH (09:23)
[2018-11-17] MEDS: GABAPENTIN 400 MG CAPSULE PO SCH ×3 (09:23→16:27)
[2018-11-17] MEDS: LACTULOSE 20 GM/30 ML SOLUTION UDCUP PO SCH (09:24)
[2018-11-17 16:09] VITALS: BP 111/70
[2018-11-17] MEDS: LORazepam 2 MG TABLET PO PRN ×2 (16:27→21:02)
[2018-11-17] MEDS: QUEtiapine FUMARATE 200 MG TABLET PO SCH ×2 (20:35→21:00)
[2018-11-18] VITALS: BP 109/71
[2018-11-18 08:00] VITALS: BP 97/57
[2018-11-18] MEDS: CITALOPRAM HYDROBROMIDE 20 MG TABLET PO SCH (08:53)
[2018-11-18] MEDS: MULTIVITAMINS WITH MINERALS, THERAPEUTIC TABLET PO SCH (08:53)
[2018-11-18] MEDS: FOLIC ACID 1 MG TABLET PO SCH (08:53)
[2018-11-18] MEDS: LACTULOSE 20 GM/30 ML SOLUTION UDCUP PO SCH (08:54)
[2018-11-18] MEDS: GABAPENTIN 400 MG CAPSULE PO SCH ×3 (08:54→16:17)
[2018-11-18] MEDS: THIAMINE HCL 100 MG TABLET PO SCH (08:54)
[2018-11-18] MEDS: LORazepam 2 MG TABLET PO PRN (10:03)
[2018-11-18 11:07] VITALS: BP 110/72
[2018-11-18 16:24] VITALS: BP 105/74
[2018-11-18] MEDS: QUEtiapine FUMARATE 200 MG TABLET PO SCH (20:24)
[2018-11-19 02:58] VITALS: BP 108/71
[2018-11-19] MEDS: LACTULOSE 20 GM/30 ML SOLUTION UDCUP PO SCH (08:07)
[2018-11-19] MEDS: GABAPENTIN 400 MG CAPSULE PO SCH ×3 (08:08→16:07)
[2018-11-19] MEDS: CITALOPRAM HYDROBROMIDE 20 MG TABLET PO SCH (08:08)
[2018-11-19] MEDS: MULTIVITAMINS WITH MINERALS, THERAPEUTIC TABLET PO SCH (08:08)
[2018-11-19] MEDS: THIAMINE HCL 100 MG TABLET PO SCH (08:08)
[2018-11-19] MEDS: FOLIC ACID 1 MG TABLET PO SCH (08:08)
[2018-11-19 08:11] VITALS: BP_SYST 117; BP_SYST 76; BP_DIAS 50; BP_DIAS 53
[2018-11-19 09:45] VITALS: BP 112/64
[2018-11-19 16:38] VITALS: BP 105/73
[2018-11-19] MEDS: QUEtiapine FUMARATE 200 MG TABLET PO SCH (20:24)
[2018-11-20 05:33] VITALS: BP 102/70
[2018-11-20 08:28] VITALS: BP 109/77
[2018-11-20] MEDS: LACTULOSE 20 GM/30 ML SOLUTION UDCUP PO SCH (08:37)
[2018-11-20] MEDS: CITALOPRAM HYDROBROMIDE 20 MG TABLET PO SCH (08:38)
[2018-11-20] MEDS: GABAPENTIN 400 MG CAPSULE PO SCH ×3 (08:38→16:54)
[2018-11-20] MEDS: MULTIVITAMINS WITH MINERALS, THERAPEUTIC TABLET PO SCH (08:38)
[2018-11-20] MEDS: FOLIC ACID 1 MG TABLET PO SCH (08:38)
[2018-11-20] MEDS: THIAMINE HCL 100 MG TABLET PO SCH (08:38)
[2018-11-20] MEDS: LORazepam 2 MG TABLET PO PRN ×2 (08:38→16:54)
[2018-11-20 16:27] VITALS: BP 116/72
[2018-11-20] MEDS: ZOLPIDEM TARTRATE 10 MG TABLET PO PRN (20:48)
[2018-11-20] MEDS: QUEtiapine FUMARATE 200 MG TABLET PO SCH (20:48)
[2018-11-21 02:56] VITALS: BP_SYST 110; BP_SYST 117; BP_DIAS 63; BP_DIAS 76
[2018-11-21] MEDS: LORazepam 2 MG TABLET PO PRN ×3 (03:00→20:47)
[2018-11-21] MEDS: CITALOPRAM HYDROBROMIDE 20 MG TABLET PO SCH (08:48)
[2018-11-21] MEDS: GABAPENTIN 400 MG CAPSULE PO SCH ×3 (08:49→16:34)
[2018-11-21] MEDS: LACTULOSE 20 GM/30 ML SOLUTION UDCUP PO SCH (08:49)
[2018-11-21] MEDS: THIAMINE HCL 100 MG TABLET PO SCH (08:53)
[2018-11-21] MEDS: FOLIC ACID 1 MG TABLET PO SCH (08:53)
[2018-11-21] MEDS: MULTIVITAMINS WITH MINERALS, THERAPEUTIC TABLET PO SCH (08:53)
[2018-11-21 09:27] VITALS: BP 113/67
[2018-11-21 16:12] VITALS: BP 106/68
[2018-11-21] MEDS: FERROUS SULFATE 325 MG EC TABLET PO SCH (16:34)
[2018-11-21] MEDS: QUEtiapine FUMARATE 200 MG TABLET PO SCH (20:08)
[2018-11-22 03:11] VITALS: BP 111/61
[2018-11-22] MEDS: FERROUS SULFATE 325 MG EC TABLET PO SCH ×3 (07:00→17:11)
[2018-11-22 08:30] VITALS: BP 113/70
[2018-11-22 08:47] LABS: EOSINOPHILS % (AUTO) 5.4 % (1.0-6.0); HEMATOCRIT 44.3 % (41-53); HEMOGLOBIN 15.2 g/dL (13.5-17.5); LYMPHOCYTES # (AUTO) 1.8 K/uL (1.0-4.8); LYMPHOCYTES % (AUTO) 34.1 % (22.0-44.0); MEAN CORPUSCULAR HEMOGLOBIN 33.3 pg (26.0-34.0); MEAN CORPUSCULAR HGB CONC 34.3 G/dL (31.0-37.0); MEAN CORPUSCULAR VOLUME 97 fL (80-100); MONOCYTES # (AUTO) 0.9 K/uL (0.1-1.0); MONOCYTES % (AUTO) 18.2 % (2.0-9.0); NEUTROPHILS % (AUTO) 39.3 % (40.0-70.0); PLATELET COUNT (AUTO) 328 K/uL (150-450); RED BLOOD CELL COUNT(AUTO) 4.57 MIL/uL (4.50-5.90)
[2018-11-22] MEDS: CITALOPRAM HYDROBROMIDE 20 MG TABLET PO SCH (09:00)
[2018-11-22] MEDS: THIAMINE HCL 100 MG TABLET PO SCH (09:00)
[2018-11-22] MEDS: GABAPENTIN 400 MG CAPSULE PO SCH ×3 (09:01→17:11)
[2018-11-22] MEDS: FOLIC ACID 1 MG TABLET PO SCH (09:01)
[2018-11-22] MEDS: LACTULOSE 20 GM/30 ML SOLUTION UDCUP PO SCH (09:01)
[2018-11-22] MEDS: MULTIVITAMINS WITH MINERALS, THERAPEUTIC TABLET PO SCH (09:01)
[2018-11-22] MEDS: LORazepam 2 MG TABLET PO PRN ×2 (12:01→20:14)
[2018-11-22 16:45] VITALS: BP 107/68
[2018-11-22] MEDS: QUEtiapine FUMARATE 200 MG TABLET PO SCH (20:15)
[2018-11-23 00:50] VITALS: BP 102/69
[2018-11-23] MEDS: FERROUS SULFATE 325 MG EC TABLET PO SCH ×3 (07:03→16:27)
[2018-11-23 07:58] VITALS: BP 122/68
[2018-11-23 08:01] VITALS: BP 122/68
[2018-11-23] MEDS: MULTIVITAMINS WITH MINERALS, THERAPEUTIC TABLET PO SCH (08:53)
[2018-11-23] MEDS: GABAPENTIN 400 MG CAPSULE PO SCH ×3 (08:53→16:27)
[2018-11-23] MEDS: THIAMINE HCL 100 MG TABLET PO SCH (08:53)
[2018-11-23] MEDS: LACTULOSE 20 GM/30 ML SOLUTION UDCUP PO SCH (08:53)
[2018-11-23] MEDS: FOLIC ACID 1 MG TABLET PO SCH (08:53)
[2018-11-23] MEDS: CITALOPRAM HYDROBROMIDE 20 MG TABLET PO SCH (08:53)
[2018-11-23 17:43] VITALS: BP 128/65
[2018-11-23] MEDS: ZOLPIDEM TARTRATE 10 MG TABLET PO PRN (20:42)
[2018-11-23] MEDS: QUEtiapine FUMARATE 200 MG TABLET PO SCH (21:00)
[2018-11-24 01:15] VITALS: BP 110/70
[2018-11-24] MEDS: LORazepam 2 MG TABLET PO PRN (01:25)
[2018-11-24] MEDS: FERROUS SULFATE 325 MG EC TABLET PO SCH ×3 (06:39→16:48)
[2018-11-24 08:31] VITALS: BP 92/62
[2018-11-24] MEDS: LACTULOSE 20 GM/30 ML SOLUTION UDCUP PO SCH (09:00)
[2018-11-24] MEDS: GABAPENTIN 400 MG CAPSULE PO SCH ×3 (09:54→16:49)
[2018-11-24] MEDS: THIAMINE HCL 100 MG TABLET PO SCH (09:54)
[2018-11-24] MEDS: CITALOPRAM HYDROBROMIDE 20 MG TABLET PO SCH (09:54)
[2018-11-24] MEDS: MULTIVITAMINS WITH MINERALS, THERAPEUTIC TABLET PO SCH (09:54)
[2018-11-24] MEDS: FOLIC ACID 1 MG TABLET PO SCH (10:03)
[2018-11-24 10:08] VITALS: BP 112/74
[2018-11-24 16:43] VITALS: BP 102/69
[2018-11-24] MEDS: QUEtiapine FUMARATE 200 MG TABLET PO SCH (20:06)
[2018-11-25 01:07] VITALS: BP 106/65
[2018-11-25] MEDS: FERROUS SULFATE 325 MG EC TABLET PO SCH ×3 (07:06→16:27)
[2018-11-25] MEDS: THIAMINE HCL 100 MG TABLET PO SCH (09:05)
[2018-11-25] MEDS: LACTULOSE 20 GM/30 ML SOLUTION UDCUP PO SCH (09:05)
[2018-11-25] MEDS: CITALOPRAM HYDROBROMIDE 20 MG TABLET PO SCH (09:05)
[2018-11-25] MEDS: MULTIVITAMINS WITH MINERALS, THERAPEUTIC TABLET PO SCH (09:06)
[2018-11-25] MEDS: FOLIC ACID 1 MG TABLET PO SCH (09:06)
[2018-11-25] MEDS: GABAPENTIN 400 MG CAPSULE PO SCH ×3 (09:06→16:27)
[2018-11-25 09:10] VITALS: BP 100/64
[2018-11-25 16:10] VITALS: BP 105/78
[2018-11-25] MEDS: LORazepam 2 MG TABLET PO PRN (20:08)
[2018-11-25] MEDS: QUEtiapine FUMARATE 200 MG TABLET PO SCH (20:11)
[2018-11-26 00:18] VITALS: BP 100/62
[2018-11-26] MEDS: FERROUS SULFATE 325 MG EC TABLET PO SCH ×3 (07:06→16:47)
[2018-11-26] MEDS: LORazepam 2 MG TABLET PO PRN (08:03)
[2018-11-26] MEDS: THIAMINE HCL 100 MG TABLET PO SCH (08:04)
[2018-11-26] MEDS: FOLIC ACID 1 MG TABLET PO SCH (08:04)
[2018-11-26] MEDS: GABAPENTIN 400 MG CAPSULE PO SCH ×3 (08:04→16:47)
[2018-11-26] MEDS: MULTIVITAMINS WITH MINERALS, THERAPEUTIC TABLET PO SCH (08:04)
[2018-11-26] MEDS: CITALOPRAM HYDROBROMIDE 20 MG TABLET PO SCH (08:08)
[2018-11-26] MEDS: LACTULOSE 20 GM/30 ML SOLUTION UDCUP PO SCH (08:11)
[2018-11-26 08:58] VITALS: BP 115/62
[2018-11-26] MEDS ORDERED: TraZODone HCL 50 MG TABLET PO PRN (14:00)
[2018-11-26 16:13] VITALS: BP 112/63
[2018-11-26] MEDS: QUEtiapine FUMARATE 200 MG TABLET PO SCH (20:16)
[2018-11-27 05:33] VITALS: BP 110/68
[2018-11-27] MEDS: FERROUS SULFATE 325 MG EC TABLET PO SCH ×2 (07:03→11:41)
[2018-11-27] MEDS ORDERED: GABA-533 PO (08:03)
[2018-11-27] MEDS ORDERED: LACT30L PO (08:03)
[2018-11-27] MEDS ORDERED: THIA100T67 PO (08:03)
[2018-11-27] MEDS ORDERED: FERR-89 PO (08:03)
[2018-11-27] MEDS ORDERED: QUET200T PO (08:03)
[2018-11-27] MEDS ORDERED: FOLI1 PO (08:03)
[2018-11-27] MEDS ORDERED: CITA-106 PO (08:03)
[2018-11-27 08:19] VITALS: BP 96/63
[2018-11-27] MEDS: CITALOPRAM HYDROBROMIDE 20 MG TABLET PO SCH (08:41)
[2018-11-27] MEDS: FOLIC ACID 1 MG TABLET PO SCH (08:41)
[2018-11-27] MEDS: GABAPENTIN 400 MG CAPSULE PO SCH (08:42)
[2018-11-27] MEDS: LACTULOSE 20 GM/30 ML SOLUTION UDCUP PO SCH (09:33)
[2018-11-27] MEDS: THIAMINE HCL 100 MG TABLET PO SCH (09:33)
[2018-11-27] MEDS: MULTIVITAMINS WITH MINERALS, THERAPEUTIC TABLET PO SCH (09:34)
== END 2018-11-27 10:20 | disposition home or self-care (01) | DRG 750 ==
LOC: EMS 02:34 → B2S 10:49
PROVIDERS: ADMIT Psychiatry & Neurology Child & Adolescent Psychiatry; ATTEND Psychiatry & Neurology Child & Adolescent Psychiatry
DX: F25.1 Schizoaffective disorder, depressive type (principal); R45.851 Suicidal ideations; K86.1 Other chronic pancreatitis; K70.30 Alcoholic cirrhosis of liver without ascites; K21.9 Gastro-esophageal reflux disease without esophagitis; F10.20 Alcohol dependence, uncomplicated; Y90.9 Presence of alcohol in blood, level not specified; J44.9 Chronic obstructive pulmonary disease, unspecified; D72.819 Decreased white blood cell count, unspecified; F17.200 Nicotine dependence, unspecified, uncomplicated; D64.9 Anemia, unspecified; F41.1 Generalized anxiety disorder; Z91.19 Patient's noncompliance with other medical treatment and regimen; Z91.030 Bee allergy status; Z59.0 Homelessness; Z71.6 Tobacco abuse counseling; Z71.41 Alcohol abuse counseling and surveillance of alcoholic
CPT/HCPCS: 83036; 84443; G0480

== ENCOUNTER 2018-12-11 01:23 | Emergency (ER) | payer MEDICAID, OTHER ==
[~2018-12-11] VITALS: Ht 177.8 cm; Wt 63.6 kg
[~2018-12-11 01:23] MED LIST changes: +CITA-106 PO; -CITA40TA14 PO; -DISU250T6 PO; +FERR-89 PO; +FOLI1 PO; +LACT30L PO; +THIA100T67 PO
[2018-12-11 02:42] LABS: BASOPHILS % (AUTO) 1.4 % (0.0-2.0); EOSINOPHILS % (AUTO) 4.8 % (1.0-6.0); HEMOGLOBIN 16.7 g/dL (13.5-17.5); LYMPHOCYTES # (AUTO) 2.6 K/uL (1.0-4.8); MEAN CORPUSCULAR HEMOGLOBIN 31.5 pg (26.0-34.0); MEAN CORPUSCULAR HGB CONC 33.3 G/dL (31.0-37.0); MEAN CORPUSCULAR VOLUME 94 fL (80-100); MONOCYTES # (AUTO) 0.4 K/uL (0.1-1.0); MONOCYTES % (AUTO) 6.2 % (2.0-9.0); NEUTROPHILS # (AUTO) 3.2 K/uL (1.8-7.7); NEUTROPHILS % (AUTO) 48.6 % (40.0-70.0); PLATELET COUNT (AUTO) 226 K/uL (150-450); RED BLOOD CELL COUNT(AUTO) 5.29 MIL/uL (4.50-5.90)
[2018-12-11 02:52] LABS: ANION GAP 14 mmol/L (8-16); CALCIUM, TOTAL 8.7 mg/dL (8.8-10.5); CARBON DIOXIDE 26 mmol/L (22-29); CHLORIDE 104 mmol/L (98-107); CREATININE 0.74 mg/dL (0.60-1.30); GLOMERULAR FILTR. RATE CALC > 60 mL/min (>60); GLUCOSE,RANDOM 82 mg/dL (70-110); POTASSIUM 4.2 mmol/L (3.5-5.1); SODIUM SERUM 144 mmol/L (136-145); UREA NITROGEN, BLOOD 11 mg/dL (7-18)
[2018-12-11 02:59] LABS: ALANINE AMINOTRANSFERASE 23 U/L (12-78); ALBUMIN 3.7 g/dL (3.4-5.0); ALKALINE PHOSPHATASE 88 U/L (46-116); ASPARTATE AMINOTRANSFERASE 37 U/L (15-37); BILIRUBIN,TOTAL 0.2 mg/dL (0.1-1.0); TOTAL PROTEIN, SERUM 7.5 g/dL (6.4-8.2)
[2018-12-11 09:45] VITALS: BP 100/61
== END 2018-12-11 10:36 | disposition home or self-care (01) ==
LOC: EMS 01:24
DX: F10.229 Alcohol dependence with intoxication, unspecified (principal); F31.9 Bipolar disorder, unspecified; F20.9 Schizophrenia, unspecified; K21.9 Gastro-esophageal reflux disease without esophagitis; F17.210 Nicotine dependence, cigarettes, uncomplicated; Z91.030 Bee allergy status; Z79.899 Other long term (current) drug therapy; Y90.8 Blood alcohol level of 240 mg/100 ml or more
CPT/HCPCS: 36415; 80053; 85025; 99285; G0480

== ENCOUNTER 2019-02-03 00:27 | Inpatient (IN) | payer MEDICAID ==
[~2019-02-03] VITALS: Ht 175.3 cm; Wt 62.1 kg
[2019-02-03] VITALS (9 sets, daily range): BP systolic 107–122; BP diastolic 60–83
[~2019-02-03 00:27] MED LIST changes: -FOLI1 PO; -LACT30L PO; -QUET200T PO; +QUET25TA PO; -THIA100T67 PO
[2019-02-03] MEDS ORDERED: ZOLPIDEM TARTRATE 10 MG TABLET PO PRN (03:15)
[2019-02-03] MEDS ORDERED: LORazepam 2 MG TABLET PO PRN (03:15)
[2019-02-03] MEDS ORDERED: -PHARMACY VACCINE NOTE- MISC ONE (04:30)
[2019-02-03 07:53] LABS: BASOPHILS % (AUTO) 0.7 % (0.0-2.0); EOSINOPHILS % (AUTO) 7.2 % (1.0-6.0); HEMATOCRIT 43.7 % (41-53); HEMOGLOBIN 14.8 g/dL (13.5-17.5); LYMPHOCYTES # (AUTO) 1.7 K/uL (1.0-4.8); LYMPHOCYTES % (AUTO) 42.2 % (22.0-44.0); MEAN CORPUSCULAR HEMOGLOBIN 31.7 pg (26.0-34.0); MEAN CORPUSCULAR HGB CONC 33.9 G/dL (31.0-37.0); MEAN CORPUSCULAR VOLUME 94 fL (80-100); MONOCYTES # (AUTO) 0.4 K/uL (0.1-1.0); MONOCYTES % (AUTO) 9.5 % (2.0-9.0); NEUTROPHILS # (AUTO) 1.6 K/uL (1.8-7.7); NEUTROPHILS % (AUTO) 40.4 % (40.0-70.0); PLATELET COUNT (AUTO) 172 K/uL (150-450); RED BLOOD CELL COUNT(AUTO) 4.68 MIL/uL (4.50-5.90); RED CELL DISTRIBUTION WIDTH 15.9 % (11.5-14.5)
[2019-02-03 08:02] LABS: HEMOGLOBIN A1C 5.7 % (4.5-6.2)
[2019-02-03 08:31] LABS: ALANINE AMINOTRANSFERASE 37 U/L (12-78); ALBUMIN 3.4 g/dL (3.4-5.0); ALKALINE PHOSPHATASE 72 U/L (46-116); ANION GAP 11 mmol/L (8-16); ASPARTATE AMINOTRANSFERASE 65 U/L (15-37); BILIRUBIN,TOTAL 0.5 mg/dL (0.1-1.0); CALCIUM, TOTAL 8.6 mg/dL (8.8-10.5); CARBON DIOXIDE 29 mmol/L (22-29); CHLORIDE 103 mmol/L (98-107); CHOL/HDL RATIO 2.3 (4.2-7.3); CHOLESTEROL 207 mg/dL (131-200); CREATININE 0.59 mg/dL (0.60-1.30); GLOMERULAR FILTR. RATE CALC > 60 mL/min (>60); GLUCOSE,RANDOM 81 mg/dL (70-110); HDL CHOLESTEROL 89 mg/dL (40-60); LDL CHOL (CALC.) 88 mg/dL (0-130); POTASSIUM 3.7 mmol/L (3.5-5.1); SODIUM SERUM 143 mmol/L (136-145); THYROID STIMULATING HORMONE 0.62 uIU/mL (0.36-3.74); TOTAL PROTEIN, SERUM 6.5 g/dL (6.4-8.2); TRIGLYCERIDES 148 mg/dL (15-150); UREA NITROGEN, BLOOD 11 mg/dL (7-18)
[2019-02-03] MEDS: CITALOPRAM HYDROBROMIDE 20 MG TABLET PO SCH (12:30)
[2019-02-03] MEDS: GABAPENTIN 400 MG CAPSULE PO SCH ×2 (12:30→16:33)
[2019-02-03] MEDS: DIAZEPAM 10 MG TABLET PO PRN (16:33)
[2019-02-03] MEDS: QUEtiapine FUMARATE 25 MG TABLET PO SCH (21:14)
[2019-02-04] VITALS (8 sets, daily range): BP systolic 100–117; BP diastolic 71–78
[2019-02-04] MEDS: DIAZEPAM 10 MG TABLET PO PRN (05:11)
[2019-02-04] MEDS ORDERED: DIAZEPAM 10 MG TABLET PO PRN (07:00)
[2019-02-04] MEDS: CITALOPRAM HYDROBROMIDE 20 MG TABLET PO SCH (09:46)
[2019-02-04] MEDS: GABAPENTIN 400 MG CAPSULE PO SCH ×3 (09:46→16:40)
[2019-02-04] MEDS: DIAZEPAM 10 MG TABLET PO SCH ×4 (09:46→20:03)
[2019-02-04] MEDS: QUEtiapine FUMARATE 25 MG TABLET PO SCH (20:04)
[2019-02-05 00:25] VITALS: BP 110/80
[2019-02-05 00:28] VITALS: BP 110/80
[2019-02-05 08:10] VITALS: BP 106/61
[2019-02-05] MEDS: CITALOPRAM HYDROBROMIDE 20 MG TABLET PO SCH (09:05)
[2019-02-05] MEDS: DIAZEPAM 10 MG TABLET PO SCH ×4 (09:05→21:12)
[2019-02-05] MEDS: GABAPENTIN 400 MG CAPSULE PO SCH ×3 (09:05→17:22)
[2019-02-05 16:00] VITALS: BP 100/66
[2019-02-05 16:13] VITALS: BP 100/66
[2019-02-05] MEDS: QUEtiapine FUMARATE 25 MG TABLET PO SCH (21:12)
[2019-02-06 01:13] VITALS: BP 130/80
[2019-02-06] MEDS ORDERED: DIAZEPAM 5 MG TABLET PO PRN (07:00)
[2019-02-06 08:14] VITALS: BP 102/58
[2019-02-06] MEDS: GABAPENTIN 400 MG CAPSULE PO SCH ×3 (08:52→16:44)
[2019-02-06] MEDS: DIAZEPAM 5 MG TABLET PO SCH ×4 (08:52→20:42)
[2019-02-06] MEDS: CITALOPRAM HYDROBROMIDE 20 MG TABLET PO SCH (08:53)
[2019-02-06 13:00] VITALS: BP 104/70
[2019-02-06 14:04] VITALS: BP 104/70
[2019-02-06 16:00] VITALS: BP 100/63
[2019-02-06 16:30] VITALS: BP 100/63
[2019-02-06] MEDS: QUEtiapine FUMARATE 25 MG TABLET PO SCH (20:42)
[2019-02-07 02:42] VITALS: BP 108/66
[2019-02-07 05:57] VITALS: BP 105/66
[2019-02-07] MEDS ORDERED: DIAZEPAM 5 MG TABLET PO PRN (07:00)
[2019-02-07] MEDS: CITALOPRAM HYDROBROMIDE 20 MG TABLET PO SCH (08:28)
[2019-02-07] MEDS: GABAPENTIN 400 MG CAPSULE PO SCH ×3 (08:28→16:56)
[2019-02-07 08:48] VITALS: BP 103/65
[2019-02-07 08:49] VITALS: BP 103/65
[2019-02-07 16:09] VITALS: BP 110/75
[2019-02-07 16:10] VITALS: BP 110/75
[2019-02-07] MEDS ORDERED: OLANZapine 5 MG TABLET PO SCH (21:00)
[2019-02-08 00:06] VITALS: BP 100/62
[2019-02-08] MEDS: CITALOPRAM HYDROBROMIDE 20 MG TABLET PO SCH (09:48)
[2019-02-08] MEDS: GABAPENTIN 400 MG CAPSULE PO SCH ×3 (09:48→16:18)
[2019-02-08 09:54] VITALS: BP 102/72
[2019-02-08 16:30] VITALS: BP 125/87
[2019-02-08] MEDS ORDERED: IBUPROFEN 400 MG TABLET PO PRN (17:15)
[2019-02-08] MEDS ORDERED: MAG HYDROX/AL HYDROX/SIMETH ES 30 ML SUSPENSION UDCUP PO PRN (17:15)
[2019-02-08] MEDS ORDERED: DOCUSATE SODIUM 100 MG CAPSULE PO PRN (17:15)
[2019-02-08] MEDS ORDERED: CloNIDine HCL 0.1 MG TABLET PO PRN (17:15)
[2019-02-08] MEDS ORDERED: LOPERAMIDE HCL 2 MG CAPSULE PO PRN (17:15)
[2019-02-08] MEDS ORDERED: MAGNESIUM HYDROXIDE SUSPENSION 30 ML UDCUP PO PRN (17:15)
[2019-02-08] MEDS ORDERED: ALBUTEROL SULFATE HFA 90 MCG/PUFF 8 GM INHALER IH PRN (17:15)
[2019-02-08] MEDS ORDERED: ONDANSETRON HCL 4 MG TABLET PO PRN (17:15)
[2019-02-08] MEDS ORDERED: PETROLATUM,WHITE 28 GM JELLY TP PRN (17:15)
[2019-02-08] MEDS ORDERED: GuaiFENesin/D-METHORPHAN [SUGAR-FREE] 200-20MG/10 ML SYRUP UDCUP PO PRN (17:15)
[2019-02-08] MEDS ORDERED: ACETAMINOPHEN 325 MG TABLET PO PRN (17:15)
[2019-02-08] MEDS ORDERED: NICOTINE 14 MG/24 HOUR PATCH TD PRN (17:15)
[2019-02-08] MEDS: OLANZapine 5 MG TABLET PO SCH (20:18)
[2019-02-09 02:06] VITALS: BP 110/67
[2019-02-09] MEDS: GABAPENTIN 400 MG CAPSULE PO SCH ×3 (09:07→16:57)
[2019-02-09] MEDS: CITALOPRAM HYDROBROMIDE 20 MG TABLET PO SCH (09:07)
[2019-02-09] MEDS: OLANZapine 5 MG TABLET PO SCH ×2 (09:07→20:12)
[2019-02-09 14:47] VITALS: BP 110/69
[2019-02-09 16:39] VITALS: BP 110/77
[2019-02-10 00:18] VITALS: BP 106/70
[2019-02-10] MEDS ORDERED: OLAN5TAB2 PO (00:56)
[2019-02-10] MEDS: CITALOPRAM HYDROBROMIDE 20 MG TABLET PO SCH (08:36)
[2019-02-10] MEDS: GABAPENTIN 400 MG CAPSULE PO SCH (08:36)
[2019-02-10] MEDS: OLANZapine 5 MG TABLET PO SCH (08:36)
== END 2019-02-10 07:15 | disposition home or self-care (01) | DRG 750 ==
LOC: B2S 03:14 → EDSTATUS 03:37
PROVIDERS: ADMIT Psychiatry & Neurology Child & Adolescent Psychiatry; ATTEND Psychiatry & Neurology Child & Adolescent Psychiatry
DX: F25.0 Schizoaffective disorder, bipolar type (principal); K74.60 Unspecified cirrhosis of liver; K86.1 Other chronic pancreatitis; J44.9 Chronic obstructive pulmonary disease, unspecified; D72.819 Decreased white blood cell count, unspecified; F10.20 Alcohol dependence, uncomplicated; D64.9 Anemia, unspecified; B18.2 Chronic viral hepatitis C; E78.5 Hyperlipidemia, unspecified
CPT/HCPCS: 83036; 84439; 84443

== ENCOUNTER 2019-04-21 20:51 | Inpatient (IN) | payer MEDICAID, OTHER ==
[~2019-04-21] VITALS: Ht 177.8 cm; Wt 62.3 kg
[~2019-04-21 20:51] MED LIST changes: -FERR-89 PO; +OLAN5TAB2 PO; -QUET25TA PO
[2019-04-21 22:21] LABS: BASOPHILS % (AUTO) 1.3 % (0.0-2.0); EOSINOPHILS % (AUTO) 3.1 % (1.0-6.0); HEMOGLOBIN 15.1 g/dL (13.5-17.5); LYMPHOCYTES # (AUTO) 1.8 K/uL (1.0-4.8); LYMPHOCYTES % (AUTO) 36.4 % (22.0-44.0); MEAN CORPUSCULAR HEMOGLOBIN 30.5 pg (26.0-34.0); MEAN CORPUSCULAR HGB CONC 32.9 G/dL (31.0-37.0); MEAN CORPUSCULAR VOLUME 93 fL (80-100); MONOCYTES # (AUTO) 0.4 K/uL (0.1-1.0); MONOCYTES % (AUTO) 7.6 % (2.0-9.0); NEUTROPHILS # (AUTO) 2.5 K/uL (1.8-7.7); NEUTROPHILS % (AUTO) 51.6 % (40.0-70.0); RED BLOOD CELL COUNT(AUTO) 4.97 MIL/uL (4.50-5.90)
[2019-04-21 22:34] LABS: ANION GAP 13 mmol/L (8-16); CALCIUM, TOTAL 8.7 mg/dL (8.8-10.5); CARBON DIOXIDE 28 mmol/L (22-29); CHLORIDE 100 mmol/L (98-107); CREATININE 1.03 mg/dL (0.60-1.30); GLOMERULAR FILTR. RATE CALC > 60 mL/min (>60); GLUCOSE,RANDOM 109 mg/dL (70-110); POTASSIUM 3.5 mmol/L (3.5-5.1); SODIUM SERUM 141 mmol/L (136-145); UREA NITROGEN, BLOOD 9 mg/dL (7-18)
[2019-04-21 22:38] LABS: PLATELET COUNT (AUTO) 82 K/uL (150-450)
[2019-04-21 22:40] LABS: ALANINE AMINOTRANSFERASE 48 U/L (12-78); ALBUMIN 3.6 g/dL (3.4-5.0); ALKALINE PHOSPHATASE 94 U/L (46-116); ASPARTATE AMINOTRANSFERASE 69 U/L (15-37); BILIRUBIN,TOTAL 0.5 mg/dL (0.1-1.0); TOTAL PROTEIN, SERUM 7.5 g/dL (6.4-8.2)
[2019-04-22] VITALS (9 sets, daily range): BP systolic 100–130; BP diastolic 61–81
[2019-04-22] MEDS ORDERED: QUEtiapine FUMARATE 100 MG TABLET PO ONE (00:45)
[2019-04-22] MEDS ORDERED: CYANOCOBALAMIN 1,000 MCG/ML VIAL IM ONE (02:00)
[2019-04-22] MEDS: THIAMINE HCL 100 MG TABLET PO SCH ×2 (10:39→16:48)
[2019-04-22] MEDS: FOLIC ACID 1 MG TABLET PO SCH (10:39)
[2019-04-22] MEDS: OLANZapine 5 MG TABLET PO SCH ×2 (10:39→20:45)
[2019-04-22] MEDS: MULTIVITAMINS WITH MINERALS, THERAPEUTIC TABLET PO SCH (10:40)
[2019-04-22] MEDS: CITALOPRAM HYDROBROMIDE 20 MG TABLET PO SCH (10:40)
[2019-04-22] MEDS: LORazepam 2 MG TABLET PO PRN ×2 (10:40→16:48)
[2019-04-22] MEDS ORDERED: LOPERAMIDE HCL 2 MG CAPSULE PO PRN (11:00)
[2019-04-22] MEDS ORDERED: MAGNESIUM HYDROXIDE SUSPENSION 30 ML UDCUP PO PRN (11:00)
[2019-04-22] MEDS ORDERED: CloNIDine HCL 0.1 MG TABLET PO PRN (11:00)
[2019-04-22] MEDS ORDERED: DOCUSATE SODIUM 100 MG CAPSULE PO PRN (11:00)
[2019-04-22] MEDS ORDERED: PETROLATUM,WHITE 28 GM JELLY TP PRN (11:00)
[2019-04-22] MEDS ORDERED: NICOTINE 14 MG/24 HOUR PATCH TD PRN (11:00)
[2019-04-22] MEDS ORDERED: ACETAMINOPHEN 325 MG TABLET PO PRN (11:00)
[2019-04-22] MEDS ORDERED: ONDANSETRON HCL 4 MG TABLET PO PRN (11:00)
[2019-04-22] MEDS ORDERED: GuaiFENesin/D-METHORPHAN [SUGAR-FREE] 200-20MG/10 ML SYRUP UDCUP PO PRN (11:00)
[2019-04-22] MEDS ORDERED: IBUPROFEN 400 MG TABLET PO PRN (11:00)
[2019-04-22] MEDS ORDERED: ALBUTEROL SULFATE HFA 90 MCG/PUFF 8 GM INHALER IH PRN (11:00)
[2019-04-22] MEDS ORDERED: MAG HYDROX/AL HYDROX/SIMETH ES 30 ML SUSPENSION UDCUP PO PRN (11:00)
[2019-04-23 01:00] VITALS: BP 120/74
[2019-04-23] MEDS: HALOPERIDOL 5 MG TABLET PO PRN (04:20)
[2019-04-23] MEDS ORDERED: LORazepam 2 MG TABLET ONE (04:22)
[2019-04-23] MEDS ORDERED: LORazepam 2 MG TABLET PO PRN ×2 (04:45→07:00)
[2019-04-23 05:02] VITALS: BP 136/89
[2019-04-23 06:32] LABS: BASOPHILS % (AUTO) 0.3 % (0.0-2.0); EOSINOPHILS % (AUTO) 5.6 % (1.0-6.0); HEMATOCRIT 44.6 % (41-53); HEMOGLOBIN 14.6 g/dL (13.5-17.5); LYMPHOCYTES # (AUTO) 1.2 K/uL (1.0-4.8); LYMPHOCYTES % (AUTO) 26.6 % (22.0-44.0); MEAN CORPUSCULAR HEMOGLOBIN 30.8 pg (26.0-34.0); MEAN CORPUSCULAR HGB CONC 32.7 G/dL (31.0-37.0); MEAN CORPUSCULAR VOLUME 94 fL (80-100); MONOCYTES # (AUTO) 0.4 K/uL (0.1-1.0); MONOCYTES % (AUTO) 8.1 % (2.0-9.0); NEUTROPHILS # (AUTO) 2.6 K/uL (1.8-7.7); NEUTROPHILS % (AUTO) 59.4 % (40.0-70.0); PLATELET COUNT (AUTO) 55 K/uL (150-450); RED BLOOD CELL COUNT(AUTO) 4.74 MIL/uL (4.50-5.90); RED CELL DISTRIBUTION WIDTH 14.7 % (11.5-14.5)
[2019-04-23 07:13] LABS: ALANINE AMINOTRANSFERASE 41 U/L (12-78); ALKALINE PHOSPHATASE 95 U/L (46-116); ANION GAP 11 mmol/L (8-16); ASPARTATE AMINOTRANSFERASE 55 U/L (15-37); BILIRUBIN,TOTAL 1.2 mg/dL (0.1-1.0); CALCIUM, TOTAL 8.8 mg/dL (8.8-10.5); CARBON DIOXIDE 27 mmol/L (22-29); CHLORIDE 99 mmol/L (98-107); CHOL/HDL RATIO 1.8 (4.2-7.3); CHOLESTEROL 192 mg/dL (131-200); CREATININE 0.68 mg/dL (0.60-1.30); GLOMERULAR FILTR. RATE CALC > 60 mL/min (>60); GLUCOSE,RANDOM 83 mg/dL (70-110); HDL CHOLESTEROL 105 mg/dL (40-60); LDL CHOL (CALC.) 64 mg/dL (0-130); POTASSIUM 3.5 mmol/L (3.5-5.1); SODIUM SERUM 137 mmol/L (136-145); THYROID STIMULATING HORMONE 0.75 uIU/mL (0.36-3.74); TOTAL PROTEIN, SERUM 6.3 g/dL (6.4-8.2); TRIGLYCERIDES 116 mg/dL (15-150); UREA NITROGEN, BLOOD 12 mg/dL (7-18)
[2019-04-23] MEDS: MULTIVITAMINS WITH MINERALS, THERAPEUTIC TABLET PO SCH (08:23)
[2019-04-23] MEDS: OLANZapine 5 MG TABLET PO SCH ×2 (08:23→21:03)
[2019-04-23] MEDS: FOLIC ACID 1 MG TABLET PO SCH (08:23)
[2019-04-23] MEDS: CITALOPRAM HYDROBROMIDE 20 MG TABLET PO SCH (08:23)
[2019-04-23] MEDS: LORazepam 2 MG TABLET PO SCH ×4 (08:24→21:06)
[2019-04-23] MEDS: THIAMINE HCL 100 MG TABLET PO SCH ×2 (08:24→16:08)
[2019-04-23 09:10] VITALS: BP 121/68
[2019-04-23 09:14] VITALS: BP 121/68
[2019-04-23 13:24] VITALS: BP 132/75
[2019-04-23 16:39] VITALS: BP 128/76
[2019-04-24] MEDS: HALOPERIDOL 5 MG TABLET PO PRN (02:36)
[2019-04-24 02:37] VITALS: BP 104/76
[2019-04-24 02:54] VITALS: BP 104/76
[2019-04-24 09:01] VITALS: BP 114/78
[2019-04-24] MEDS: LORazepam 2 MG TABLET PO SCH ×4 (09:29→21:09)
[2019-04-24] MEDS: FOLIC ACID 1 MG TABLET PO SCH (09:29)
[2019-04-24] MEDS: OLANZapine 5 MG TABLET PO SCH ×2 (09:29→21:09)
[2019-04-24] MEDS: THIAMINE HCL 100 MG TABLET PO SCH (09:29)
[2019-04-24] MEDS: CITALOPRAM HYDROBROMIDE 20 MG TABLET PO SCH (09:30)
[2019-04-24] MEDS: MULTIVITAMINS WITH MINERALS, THERAPEUTIC TABLET PO SCH (09:30)
[2019-04-24 16:45] VITALS: BP 120/80
[2019-04-25 01:40] VITALS: BP 129/80
[2019-04-25] MEDS ORDERED: LORazepam 1 MG TABLET PO PRN (07:00)
[2019-04-25] MEDS: LORazepam 1 MG TABLET PO SCH ×4 (08:50→20:23)
[2019-04-25] MEDS: CITALOPRAM HYDROBROMIDE 20 MG TABLET PO SCH (08:51)
[2019-04-25] MEDS: OLANZapine 5 MG TABLET PO SCH ×2 (08:52→20:23)
[2019-04-25] MEDS: FOLIC ACID 1 MG TABLET PO SCH (08:52)
[2019-04-25] MEDS: THIAMINE HCL 100 MG TABLET PO SCH (08:52)
[2019-04-25] MEDS: MULTIVITAMINS WITH MINERALS, THERAPEUTIC TABLET PO SCH (08:52)
[2019-04-25 09:49] VITALS: BP 108/68
[2019-04-25 16:40] VITALS: BP 120/70
[2019-04-26] MEDS ORDERED: LORazepam 1 MG TABLET PO PRN (07:00)
[2019-04-26] MEDS: MULTIVITAMINS WITH MINERALS, THERAPEUTIC TABLET PO SCH (09:39)
[2019-04-26] MEDS: CITALOPRAM HYDROBROMIDE 20 MG TABLET PO SCH (09:39)
[2019-04-26] MEDS: OLANZapine 5 MG TABLET PO SCH ×2 (09:40→20:40)
[2019-04-26] MEDS: THIAMINE HCL 100 MG TABLET PO SCH (09:40)
[2019-04-26] MEDS: FOLIC ACID 1 MG TABLET PO SCH (09:40)
[2019-04-26 10:43] VITALS: BP 97/61
[2019-04-26] MEDS ORDERED: DiphenhydrAMINE HCL 25 MG CAPSULE PO ONE (13:15)
[2019-04-26 16:18] VITALS: BP 114/63
[2019-04-27] MEDS: MULTIVITAMINS WITH MINERALS, THERAPEUTIC TABLET PO SCH (08:55)
[2019-04-27] MEDS: FOLIC ACID 1 MG TABLET PO SCH (08:55)
[2019-04-27] MEDS: CITALOPRAM HYDROBROMIDE 20 MG TABLET PO SCH (08:55)
[2019-04-27] MEDS: OLANZapine 5 MG TABLET PO SCH (08:55)
[2019-04-27] MEDS: THIAMINE HCL 100 MG TABLET PO SCH (08:55)
[2019-04-27 09:26] VITALS: BP 95/74
[2019-04-27 17:36] VITALS: BP 107/71
[2019-04-27] MEDS: OLANZapine 10 MG TABLET PO SCH (20:09)
[2019-04-27] MEDS: ZOLPIDEM TARTRATE 10 MG TABLET PO PRN (21:17)
[2019-04-28] MEDS: MULTIVITAMINS WITH MINERALS, THERAPEUTIC TABLET PO SCH (08:54)
[2019-04-28] MEDS: OLANZapine 5 MG TABLET PO SCH (08:54)
[2019-04-28] MEDS: CITALOPRAM HYDROBROMIDE 20 MG TABLET PO SCH (08:54)
[2019-04-28] MEDS: FOLIC ACID 1 MG TABLET PO SCH (08:54)
[2019-04-28] MEDS: THIAMINE HCL 100 MG TABLET PO SCH (08:54)
[2019-04-28 10:14] VITALS: BP 121/73
[2019-04-28] MEDS: HALOPERIDOL 5 MG TABLET PO PRN (11:00)
[2019-04-28 16:44] VITALS: BP 117/64
[2019-04-28] MEDS: OLANZapine 10 MG TABLET PO SCH (20:33)
[2019-04-28] MEDS: ZOLPIDEM TARTRATE 10 MG TABLET PO PRN (20:33)
[2019-04-29] MEDS: FOLIC ACID 1 MG TABLET PO SCH (08:19)
[2019-04-29] MEDS: CITALOPRAM HYDROBROMIDE 20 MG TABLET PO SCH (08:19)
[2019-04-29] MEDS: THIAMINE HCL 100 MG TABLET PO SCH (08:19)
[2019-04-29] MEDS: MULTIVITAMINS WITH MINERALS, THERAPEUTIC TABLET PO SCH (08:19)
[2019-04-29] MEDS: OLANZapine 5 MG TABLET PO SCH (08:19)
[2019-04-29 08:47] VITALS: BP 100/72
[2019-04-29] MEDS: HALOPERIDOL 5 MG TABLET PO PRN (09:16)
[2019-04-29] MEDS: OLANZapine 10 MG TABLET PO SCH (20:10)
[2019-04-30 08:00] VITALS: BP 99/76
[2019-04-30] MEDS: MULTIVITAMINS WITH MINERALS, THERAPEUTIC TABLET PO SCH (10:55)
[2019-04-30] MEDS: OLANZapine 5 MG TABLET PO SCH (10:55)
[2019-04-30] MEDS: CITALOPRAM HYDROBROMIDE 20 MG TABLET PO SCH (10:55)
[2019-04-30] MEDS: FOLIC ACID 1 MG TABLET PO SCH (10:55)
[2019-04-30] MEDS: THIAMINE HCL 100 MG TABLET PO SCH (10:56)
[2019-04-30 17:04] VITALS: BP 108/71
[2019-04-30] MEDS: ZOLPIDEM TARTRATE 10 MG TABLET PO PRN (20:15)
[2019-04-30] MEDS: OLANZapine 10 MG TABLET PO SCH (20:15)
[2019-05-01] MEDS: FOLIC ACID 1 MG TABLET PO SCH (09:12)
[2019-05-01] MEDS: OLANZapine 5 MG TABLET PO SCH (09:12)
[2019-05-01] MEDS: THIAMINE HCL 100 MG TABLET PO SCH (09:12)
[2019-05-01] MEDS: MULTIVITAMINS WITH MINERALS, THERAPEUTIC TABLET PO SCH (09:12)
[2019-05-01] MEDS: CITALOPRAM HYDROBROMIDE 20 MG TABLET PO SCH (09:13)
[2019-05-01 10:07] VITALS: BP 117/78
[2019-05-01] MEDS ORDERED: OLAN10TA3 PO (10:40)
[2019-05-01] MEDS ORDERED: OLAN5TAB2 PO (10:40)
[2019-05-01] MEDS ORDERED: CITA-106 PO (10:40)
[2019-05-01] MEDS ORDERED: FOLI1 PO (10:42)
[2019-05-01] MEDS ORDERED: MULT-1239 PO (10:43)
[2019-05-01] MEDS ORDERED: THIA100T67 PO (10:44)
== END 2019-05-01 14:23 | disposition home or self-care (01) | DRG 750 ==
LOC: EMS 20:56 → 3EI 04-22 08:15
DX: F25.1 Schizoaffective disorder, depressive type (principal); R45.851 Suicidal ideations; K86.0 Alcohol-induced chronic pancreatitis; R74.0 Nonspecific elevation of levels of transaminase and lactic acid dehydrogenase [LDH]; K21.9 Gastro-esophageal reflux disease without esophagitis; F10.229 Alcohol dependence with intoxication, unspecified; F17.200 Nicotine dependence, unspecified, uncomplicated; R00.0 Tachycardia, unspecified; Z59.0 Homelessness; Z79.899 Other long term (current) drug therapy
CPT/HCPCS: 83036; 84443; 93005; G0480; J3420

== ENCOUNTER 2019-05-24 23:43 | Inpatient (IN) | payer MEDICAID, OTHER ==
[~2019-05-24] VITALS: Ht 177.8 cm; Wt 64.3 kg
[2019-05-24 22:09] VITALS: BP 149/92
[~2019-05-24 23:43] MED LIST changes: +FOLI1 PO; -GABA-533 PO; +LORazepam 2 MG TABLET PO PRN; +MULT-1239 PO; +OLAN10TA3 PO; +THIA100T67 PO; +ZOLPIDEM TARTRATE 10 MG TABLET PO PRN
[2019-05-25] VITALS (12 sets, daily range): BP systolic 100–118; BP diastolic 61–78
[2019-05-25 01:02] LABS: EOSINOPHILS % (AUTO) 3.8 % (1.0-6.0); LYMPHOCYTES # (AUTO) 2.4 K/uL (1.0-4.8); LYMPHOCYTES % (AUTO) 34.1 % (22.0-44.0); MEAN CORPUSCULAR HEMOGLOBIN 30.7 pg (26.0-34.0); MEAN CORPUSCULAR HGB CONC 32.6 G/dL (31.0-37.0); MEAN CORPUSCULAR VOLUME 94 fL (80-100); MONOCYTES # (AUTO) 0.7 K/uL (0.1-1.0); MONOCYTES % (AUTO) 10.8 % (2.0-9.0); NEUTROPHILS # (AUTO) 3.5 K/uL (1.8-7.7); NEUTROPHILS % (AUTO) 50.3 % (40.0-70.0); PLATELET COUNT (AUTO) 217 K/uL (150-450); RED BLOOD CELL COUNT(AUTO) 4.57 MIL/uL (4.50-5.90); RED CELL DISTRIBUTION WIDTH 15.4 % (11.5-14.5)
[2019-05-25 01:09] LABS: ANION GAP 10 mmol/L (8-16); CARBON DIOXIDE 26 mmol/L (22-29); CHLORIDE 102 mmol/L (98-107); CREATININE 0.83 mg/dL (0.60-1.30); GLOMERULAR FILTR. RATE CALC > 60 mL/min (>60); GLUCOSE,RANDOM 89 mg/dL (70-110); POTASSIUM 3.7 mmol/L (3.5-5.1); SODIUM SERUM 138 mmol/L (136-145); UREA NITROGEN, BLOOD 15 mg/dL (7-18)
[2019-05-25 01:14] LABS: ALANINE AMINOTRANSFERASE 19 U/L (12-78); ALBUMIN 3.5 g/dL (3.4-5.0); ALKALINE PHOSPHATASE 76 U/L (46-116); ASPARTATE AMINOTRANSFERASE 28 U/L (15-37); BILIRUBIN,TOTAL 0.5 mg/dL (0.1-1.0)
[2019-05-25 01:21] LABS: ACETAMINOPHEN < 2 mcg/mL (10-30)
[2019-05-25 01:25] LABS: SALICYLATE 4.8 mg/dL (2.8-20.0)
[2019-05-25 02:20] LABS: AMPHET/METH SCREEN,URINE NEGATIVE (NEGATIVE); BARBITURATE SCREEN, URINE NEGATIVE (NEGATIVE); BENZODIAZEPINES SCREEN,URINE NEGATIVE (NEGATIVE); CANNABINOID SCREEN,URINE NEGATIVE (NEGATIVE); COCAINE SCREEN,URINE NEGATIVE (NEGATIVE); METHADONE SCREEN, URINE NEGATIVE (NEGATIVE); OPIATE SCREEN,URINE NEGATIVE (NEGATIVE)
[2019-05-25 02:27] LABS: PHENCYCLIDINE SCREEN,URINE NEGATIVE (NEGATIVE)
[2019-05-25] MEDS ORDERED: LORazepam 2 MG TABLET PO PRN (05:30)
[2019-05-25] MEDS ORDERED: ZOLPIDEM TARTRATE 10 MG TABLET PO PRN (05:30)
[2019-05-25 06:49] LABS: CHOL/HDL RATIO 4.2 (4.2-7.3); CHOLESTEROL 187 mg/dL (131-200); FREE T4 (FREE THYROXINE) 0.98 ng/dL (0.76-1.46); HDL CHOLESTEROL 45 mg/dL (40-60); LDL CHOL (CALC.) 97 mg/dL (0-130); TRIGLYCERIDES 223 mg/dL (15-150)
[2019-05-25 06:58] LABS: HEMOGLOBIN A1C 5.7 % (4.5-6.2)
[2019-05-25] MEDS ORDERED: OLANZapine 5 MG TABLET PO SCH (09:00)
[2019-05-25] MEDS ORDERED: CITALOPRAM HYDROBROMIDE 20 MG TABLET PO SCH (09:00)
[2019-05-25] MEDS ORDERED: CYANOCOBALAMIN 1,000 MCG/ML VIAL IM ONE (09:45)
[2019-05-25] MEDS: THIAMINE HCL 100 MG TABLET PO SCH ×2 (12:24→16:45)
[2019-05-25] MEDS: OLANZapine 5 MG TABLET PO SCH (12:24)
[2019-05-25] MEDS: FOLIC ACID 1 MG TABLET PO SCH (12:24)
[2019-05-25] MEDS: MULTIVITAMINS WITH MINERALS, THERAPEUTIC TABLET PO SCH (12:24)
[2019-05-25] MEDS: CITALOPRAM HYDROBROMIDE 20 MG TABLET PO SCH (12:25)
[2019-05-25] MEDS: LORazepam 2 MG TABLET PO PRN (16:46)
[2019-05-25] MEDS: OLANZapine 10 MG TABLET PO SCH (20:25)
[2019-05-25] MEDS ORDERED: OLANZapine 10 MG TABLET PO SCH (21:00)
[2019-05-26 00:06] VITALS: BP 111/80
[2019-05-26] MEDS: LORazepam 2 MG TABLET PO PRN (00:07)
[2019-05-26 06:06] VITALS: BP 120/78
[2019-05-26] MEDS ORDERED: LORazepam 2 MG TABLET PO PRN (07:00)
[2019-05-26 07:34] LABS: BASOPHILS % (AUTO) 1.3 % (0.0-2.0); EOSINOPHILS % (AUTO) 8.2 % (1.0-6.0); HEMOGLOBIN 15.2 g/dL (13.5-17.5); LYMPHOCYTES # (AUTO) 1.2 K/uL (1.0-4.8); LYMPHOCYTES % (AUTO) 26.9 % (22.0-44.0); MEAN CORPUSCULAR HEMOGLOBIN 31.1 pg (26.0-34.0); MEAN CORPUSCULAR VOLUME 94 fL (80-100); MONOCYTES # (AUTO) 0.6 K/uL (0.1-1.0); MONOCYTES % (AUTO) 13.2 % (2.0-9.0); NEUTROPHILS # (AUTO) 2.2 K/uL (1.8-7.7); NEUTROPHILS % (AUTO) 50.4 % (40.0-70.0); PLATELET COUNT (AUTO) 199 K/uL (150-450); RED BLOOD CELL COUNT(AUTO) 4.89 MIL/uL (4.50-5.90); RED CELL DISTRIBUTION WIDTH 15.7 % (11.5-14.5)
[2019-05-26 08:11] VITALS: BP 98/54
[2019-05-26] MEDS: LORazepam 2 MG TABLET PO SCH ×4 (08:25→20:15)
[2019-05-26] MEDS: THIAMINE HCL 100 MG TABLET PO SCH ×2 (08:25→16:08)
[2019-05-26] MEDS: FOLIC ACID 1 MG TABLET PO SCH (08:25)
[2019-05-26] MEDS: MULTIVITAMINS WITH MINERALS, THERAPEUTIC TABLET PO SCH (08:25)
[2019-05-26] MEDS: CITALOPRAM HYDROBROMIDE 20 MG TABLET PO SCH (08:25)
[2019-05-26] MEDS: OLANZapine 5 MG TABLET PO SCH (08:25)
[2019-05-26 09:32] VITALS: BP 98/54
[2019-05-26 10:40] VITALS: BP 102/63
[2019-05-26 16:04] VITALS: BP 108/76
[2019-05-26] MEDS: OLANZapine 10 MG TABLET PO SCH (20:15)
[2019-05-27 00:50] VITALS: BP 116/80
[2019-05-27] MEDS: OLANZapine 5 MG TABLET PO SCH (08:12)
[2019-05-27] MEDS: THIAMINE HCL 100 MG TABLET PO SCH ×2 (08:12→16:11)
[2019-05-27] MEDS: LORazepam 2 MG TABLET PO SCH ×4 (08:12→20:15)
[2019-05-27] MEDS: MULTIVITAMINS WITH MINERALS, THERAPEUTIC TABLET PO SCH (08:13)
[2019-05-27] MEDS: CITALOPRAM HYDROBROMIDE 20 MG TABLET PO SCH (08:13)
[2019-05-27] MEDS: FOLIC ACID 1 MG TABLET PO SCH (08:13)
[2019-05-27 08:37] VITALS: BP 137/67
[2019-05-27 12:20] VITALS: BP 105/74
[2019-05-27 16:14] VITALS: BP 105/60
[2019-05-27] MEDS: OLANZapine 10 MG TABLET PO SCH (20:15)
[2019-05-28 00:29] VITALS: BP 105/72
[2019-05-28] MEDS ORDERED: LORazepam 1 MG TABLET PO PRN (07:00)
[2019-05-28] MEDS: CITALOPRAM HYDROBROMIDE 20 MG TABLET PO SCH (08:06)
[2019-05-28] MEDS: OLANZapine 5 MG TABLET PO SCH (08:06)
[2019-05-28 08:10] VITALS: BP 106/70
[2019-05-28] MEDS: LORazepam 1 MG TABLET PO SCH ×4 (08:56→21:03)
[2019-05-28] MEDS: THIAMINE HCL 100 MG TABLET PO SCH ×2 (08:58→17:00)
[2019-05-28] MEDS: MULTIVITAMINS WITH MINERALS, THERAPEUTIC TABLET PO SCH (08:59)
[2019-05-28] MEDS: FOLIC ACID 1 MG TABLET PO SCH (08:59)
[2019-05-28 16:23] VITALS: BP 114/63
[2019-05-28 16:24] VITALS: BP 114/63
[2019-05-28] MEDS: OLANZapine 10 MG TABLET PO SCH (21:03)
[2019-05-29 00:05] VITALS: BP 112/75
[2019-05-29 00:08] VITALS: BP 112/75
[2019-05-29] MEDS ORDERED: LORazepam 1 MG TABLET PO PRN (07:00)
[2019-05-29] MEDS: THIAMINE HCL 100 MG TABLET PO SCH ×2 (08:04→16:16)
[2019-05-29] MEDS: OLANZapine 5 MG TABLET PO SCH (08:04)
[2019-05-29] MEDS: MULTIVITAMINS WITH MINERALS, THERAPEUTIC TABLET PO SCH (08:04)
[2019-05-29] MEDS: FOLIC ACID 1 MG TABLET PO SCH (08:04)
[2019-05-29] MEDS: CITALOPRAM HYDROBROMIDE 20 MG TABLET PO SCH (08:04)
[2019-05-29 08:20] VITALS: BP 106/73
[2019-05-29 16:09] VITALS: BP 106/74
[2019-05-29 18:37] VITALS: BP 106/74
[2019-05-29] MEDS: OLANZapine 10 MG TABLET PO SCH (20:10)
[2019-05-30 02:25] VITALS: BP 90/63
[2019-05-30] MEDS: THIAMINE HCL 100 MG TABLET PO SCH (07:54)
[2019-05-30] MEDS: MULTIVITAMINS WITH MINERALS, THERAPEUTIC TABLET PO SCH (07:54)
[2019-05-30] MEDS: FOLIC ACID 1 MG TABLET PO SCH (07:54)
[2019-05-30] MEDS: OLANZapine 5 MG TABLET PO SCH (07:54)
[2019-05-30] MEDS: CITALOPRAM HYDROBROMIDE 20 MG TABLET PO SCH (08:01)
[2019-05-30 08:16] VITALS: BP 107/68
[2019-05-30] MEDS ORDERED: CITA-106 PO (08:55)
[2019-05-30] MEDS ORDERED: OLAN5TAB27 PO (08:55)
[2019-05-30] MEDS ORDERED: OLAN10TA20 PO (08:55)
== END 2019-05-30 11:35 | disposition home or self-care (01) | DRG 750 ==
LOC: PSY 23:43 → EMS 23:43 → B2S 05-25 05:30
PROVIDERS: ADMIT Psychiatry & Neurology Psychiatry
DX: F25.1 Schizoaffective disorder, depressive type (principal); K86.1 Other chronic pancreatitis; R45.851 Suicidal ideations; R56.9 Unspecified convulsions; E78.5 Hyperlipidemia, unspecified; G47.00 Insomnia, unspecified; F10.229 Alcohol dependence with intoxication, unspecified; F17.210 Nicotine dependence, cigarettes, uncomplicated; I10 Essential (primary) hypertension; J44.9 Chronic obstructive pulmonary disease, unspecified; F19.10 Other psychoactive substance abuse, uncomplicated; K21.9 Gastro-esophageal reflux disease without esophagitis; Z59.0 Homelessness; Z91.030 Bee allergy status; Z79.899 Other long term (current) drug therapy; Z91.5 Personal history of self-harm; Z71.41 Alcohol abuse counseling and surveillance of alcoholic; Z71.51 Drug abuse counseling and surveillance of drug abuser
CPT/HCPCS: 83036; 84439; 84443; 87081; G0480; G0481; J3420

== ENCOUNTER 2019-06-01 04:32 | Inpatient (IN) | payer MEDICAID ==
[~2019-06-01] VITALS: Ht 177.8 cm; Wt 64.0 kg
[~2019-06-01 04:32] MED LIST changes: -FOLI1 PO; -LORazepam 2 MG TABLET PO PRN; -MULT-1239 PO; +OLAN10TA20 PO; +OLAN5TAB27 PO; -THIA100T67 PO; -ZOLPIDEM TARTRATE 10 MG TABLET PO PRN
[2019-06-01] MEDS ORDERED: LORazepam 2 MG TABLET PO PRN (08:00)
[2019-06-01] MEDS ORDERED: ZOLPIDEM TARTRATE 10 MG TABLET PO PRN (08:00)
[2019-06-01] MEDS ORDERED: HALOPERIDOL 5 MG TABLET PO PRN (08:00)
[2019-06-01] MEDS ORDERED: LOPERAMIDE HCL 2 MG CAPSULE PO PRN (09:00)
[2019-06-01] MEDS ORDERED: PETROLATUM,WHITE 28 GM JELLY TP PRN (09:00)
[2019-06-01] MEDS ORDERED: DOCUSATE SODIUM 100 MG CAPSULE PO PRN (09:00)
[2019-06-01] MEDS ORDERED: ACETAMINOPHEN 325 MG TABLET PO PRN (09:00)
[2019-06-01] MEDS ORDERED: ONDANSETRON HCL 4 MG TABLET PO PRN (09:00)
[2019-06-01] MEDS ORDERED: CloNIDine HCL 0.1 MG TABLET PO PRN (09:00)
[2019-06-01] MEDS ORDERED: MAG HYDROX/AL HYDROX/SIMETH ES 30 ML SUSPENSION UDCUP PO PRN (09:00)
[2019-06-01] MEDS ORDERED: GuaiFENesin/D-METHORPHAN [SUGAR-FREE] 200-20MG/10 ML SYRUP UDCUP PO PRN (09:00)
[2019-06-01] MEDS ORDERED: MAGNESIUM HYDROXIDE SUSPENSION 30 ML UDCUP PO PRN (09:00)
[2019-06-01] MEDS ORDERED: NICOTINE 14 MG/24 HOUR PATCH TD PRN (09:00)
[2019-06-01] MEDS ORDERED: ALBUTEROL SULFATE HFA 90 MCG/PUFF 8 GM INHALER IH PRN (09:00)
[2019-06-01] MEDS ORDERED: IBUPROFEN 400 MG TABLET PO PRN (09:00)
[2019-06-01 09:01] VITALS: BP 132/81
[2019-06-01] MEDS: CITALOPRAM HYDROBROMIDE 20 MG TABLET PO SCH (11:48)
[2019-06-01] MEDS: OLANZapine 5 MG TABLET PO SCH (11:48)
[2019-06-01 16:12] VITALS: BP 111/63
[2019-06-01] MEDS: OLANZapine 10 MG TABLET PO SCH (20:08)
[2019-06-02 01:04] VITALS: BP 114/72
[2019-06-02 07:45] LABS: BASOPHILS % (AUTO) 0.7 % (0.0-2.0); EOSINOPHILS % (AUTO) 1.6 % (1.0-6.0); HEMATOCRIT 46.9 % (41-53); HEMOGLOBIN 15.5 g/dL (13.5-17.5); LYMPHOCYTES # (AUTO) 1.1 K/uL (1.0-4.8); LYMPHOCYTES % (AUTO) 11.8 % (22.0-44.0); MEAN CORPUSCULAR HEMOGLOBIN 31.2 pg (26.0-34.0); MEAN CORPUSCULAR HGB CONC 33.1 G/dL (31.0-37.0); MEAN CORPUSCULAR VOLUME 95 fL (80-100); MONOCYTES # (AUTO) 0.9 K/uL (0.1-1.0); MONOCYTES % (AUTO) 9.4 % (2.0-9.0); NEUTROPHILS # (AUTO) 7.4 K/uL (1.8-7.7); NEUTROPHILS % (AUTO) 76.5 % (40.0-70.0); PLATELET COUNT (AUTO) 232 K/uL (150-450); RED BLOOD CELL COUNT(AUTO) 4.96 MIL/uL (4.50-5.90); RED CELL DISTRIBUTION WIDTH 15.5 % (11.5-14.5)
[2019-06-02] MEDS: OLANZapine 5 MG TABLET PO SCH (08:01)
[2019-06-02] MEDS: CITALOPRAM HYDROBROMIDE 20 MG TABLET PO SCH (08:01)
[2019-06-02 08:02] LABS: APPEARANCE,URINE TURBID (CLEAR); BILIRUBIN,URINE NEGATIVE (NEGATIVE); GLUCOSE, URINE (UA) NEGATIVE (NEGATIVE); KETONES,URINE NEGATIVE (NEGATIVE); LEUKOCYTE ESTERASE ,URINE NEGATIVE (NEGATIVE); NITRATE,URINE NEGATIVE (NEGATIVE); OCCULT BLOOD,URINE NEGATIVE (NEGATIVE); PROTEIN,URINE NEGATIVE (NEGATIVE); UROBILINOGEN,URINE 0.2 mg/dL (<=1.0)
[2019-06-02 08:06] LABS: ALANINE AMINOTRANSFERASE 19 U/L (12-78); ALBUMIN 3.4 g/dL (3.4-5.0); ALKALINE PHOSPHATASE 78 U/L (46-116); ANION GAP 9 mmol/L (8-16); ASPARTATE AMINOTRANSFERASE 23 U/L (15-37); BILIRUBIN,TOTAL 0.8 mg/dL (0.1-1.0); CALCIUM, TOTAL 9.1 mg/dL (8.8-10.5); CARBON DIOXIDE 26 mmol/L (22-29); CHLORIDE 102 mmol/L (98-107); CHOL/HDL RATIO 3.5 (4.2-7.3); CHOLESTEROL 188 mg/dL (131-200); CREATININE 0.66 mg/dL (0.60-1.30); FREE T4 (FREE THYROXINE) 0.99 ng/dL (0.76-1.46); GLOMERULAR FILTR. RATE CALC > 60 mL/min (>60); GLUCOSE,RANDOM 92 mg/dL (70-110); HDL CHOLESTEROL 53 mg/dL (40-60); LDL CHOL (CALC.) 109 mg/dL (0-130); SODIUM SERUM 137 mmol/L (136-145); THYROID STIMULATING HORMONE 0.53 uIU/mL (0.36-3.74); TRIGLYCERIDES 132 mg/dL (15-150); UREA NITROGEN, BLOOD 11 mg/dL (7-18)
[2019-06-02 08:09] LABS: AMPHET/METH SCREEN,URINE NEGATIVE (NEGATIVE); BARBITURATE SCREEN, URINE NEGATIVE (NEGATIVE); BENZODIAZEPINES SCREEN,URINE NEGATIVE (NEGATIVE); CANNABINOID SCREEN,URINE NEGATIVE (NEGATIVE); COCAINE SCREEN,URINE NEGATIVE (NEGATIVE); METHADONE SCREEN, URINE NEGATIVE (NEGATIVE); OPIATE SCREEN,URINE NEGATIVE (NEGATIVE)
[2019-06-02 08:11] LABS: PHENCYCLIDINE SCREEN,URINE NEGATIVE (NEGATIVE)
[2019-06-02 08:13] VITALS: BP 100/63
[2019-06-02 08:13] LABS: AMORPHOUS SEDIMENT,UR Moderate /LPF (None Seen); BACTERIA,URINE Moderate /HPF (None Seen); RBC,URINE None Seen /HPF (0-2); SQUAMOUS EPITHELIAL CELL,UR Few /LPF (None Seen); WBC,URINE None Seen /HPF (0-5)
[2019-06-02 16:02] VITALS: BP 126/71
[2019-06-02] MEDS: OLANZapine 10 MG TABLET PO SCH (20:03)
[2019-06-03 02:38] VITALS: BP 104/62
[2019-06-03] MEDS: CITALOPRAM HYDROBROMIDE 20 MG TABLET PO SCH (08:02)
[2019-06-03] MEDS: OLANZapine 5 MG TABLET PO SCH (08:02)
[2019-06-03 08:15] VITALS: BP 109/69
[2019-06-03 16:00] VITALS: BP 100/76
[2019-06-03] MEDS: OLANZapine 10 MG TABLET PO SCH (20:11)
[2019-06-04 00:33] VITALS: BP 128/83
[2019-06-04 08:15] VITALS: BP 118/72
[2019-06-04] MEDS: CITALOPRAM HYDROBROMIDE 20 MG TABLET PO SCH (08:31)
[2019-06-04] MEDS: OLANZapine 5 MG TABLET PO SCH (08:31)
== END 2019-06-04 12:30 | disposition home or self-care (01) | DRG 750 ==
LOC: B2S 08:06
PROVIDERS: ADMIT Psychiatry & Neurology Psychiatry
DX: F25.1 Schizoaffective disorder, depressive type (principal); K86.1 Other chronic pancreatitis; G40.909 Epilepsy, unspecified, not intractable, without status epilepticus; I10 Essential (primary) hypertension; J44.9 Chronic obstructive pulmonary disease, unspecified; F10.10 Alcohol abuse, uncomplicated; E78.5 Hyperlipidemia, unspecified; D72.819 Decreased white blood cell count, unspecified; Z79.899 Other long term (current) drug therapy
CPT/HCPCS: 84439; 84443; 87081; 87086

== ENCOUNTER 2019-07-12 09:01 | Inpatient (IN) | payer MEDICAID ==
[~2019-07-12 09:01] MED LIST changes: -OLAN10TA3 PO; -OLAN5TAB2 PO
[2019-07-12] MEDS ORDERED: HALOPERIDOL 5 MG TABLET PO PRN (10:45)
[2019-07-12] MEDS ORDERED: ZOLPIDEM TARTRATE 10 MG TABLET PO PRN (10:45)
[2019-07-12] MEDS ORDERED: LORazepam 2 MG TABLET PO PRN (10:45)
[2019-07-12] MEDS ORDERED: INFLUENZA VIRUS VACCINE QVS 2019-20 (3YR+)/PF 60 MCG/0.5 ML SYRINGE IM ONE (11:45)
== END 2019-07-12 18:28 | disposition short-term general hospital (02) | DRG 750 ==
LOC: B2S 11:25
PROVIDERS: ADMIT Psychiatry & Neurology Psychiatry; ATTEND Psychiatry & Neurology Psychiatry
DX: F25.9 Schizoaffective disorder, unspecified (principal)

== ENCOUNTER 2019-07-12 11:05 | Inpatient (IN) | payer MEDICAID, OTHER ==
[~2019-07-12] VITALS: Ht 175.3 cm; Wt 65.5 kg
[2019-07-12] MEDS ORDERED: ChlordiazePOXIDE HCL 25 MG CAPSULE PO ONE (11:45)
[2019-07-12] MEDS ORDERED: PB/HYOSCY/ATR/SCOP/LIDO/MAALOX 55 ML BOTTLE PO ONE (11:45)
[2019-07-12] MEDS ORDERED: FAMOTIDINE 10 MG/ML 2 ML VIAL IVP ONE (11:45)
[2019-07-12] MEDS ORDERED: ONDANSETRON HCL 4 MG/2 ML VIAL IVP ONE (11:45)
[2019-07-12] MEDS ORDERED: LORazepam 2 MG/ML VIAL IVP ONE (11:45)
[2019-07-12] MEDS ORDERED: MAGNESIUM SULFATE 2 GM, MVI, ADULT NO.1 WITH VIT K 10 ML, THIAMINE HCL 100 MG, FOLIC AC... IV ONE ×5 (11:45)
[2019-07-12 12:02] LABS: EOSINOPHILS % (AUTO) 0 % (1.0-6.0); HEMATOCRIT 45.3 % (41-53); HEMOGLOBIN 15.4 g/dL (13.5-17.5); LYMPHOCYTES # (AUTO) 1.5 K/uL (1.0-4.8); LYMPHOCYTES % (AUTO) 18.9 % (22.0-44.0); MEAN CORPUSCULAR HEMOGLOBIN 30.6 pg (26.0-34.0); MEAN CORPUSCULAR HGB CONC 33.9 G/dL (31.0-37.0); MEAN CORPUSCULAR VOLUME 90 fL (80-100); MONOCYTES # (AUTO) 0.7 K/uL (0.1-1.0); MONOCYTES % (AUTO) 8.6 % (2.0-9.0); NEUTROPHILS # (AUTO) 5.7 K/uL (1.8-7.7); NEUTROPHILS % (AUTO) 71.5 % (40.0-70.0); PLATELET COUNT (AUTO) 275 K/uL (150-450); RED BLOOD CELL COUNT(AUTO) 5.02 MIL/uL (4.50-5.90); RED CELL DISTRIBUTION WIDTH 14.2 % (11.5-14.5)
[2019-07-12 12:18] LABS: PROTHROMBIN TIME 9.9 SEC (9.4-11.6)
[2019-07-12 12:27] LABS: ANION GAP 12 mmol/L (8-16); CALCIUM, TOTAL 9.2 mg/dL (8.8-10.5); CARBON DIOXIDE 26 mmol/L (22-29); CHLORIDE 99 mmol/L (98-107); CREATININE 0.72 mg/dL (0.60-1.30); GLOMERULAR FILTR. RATE CALC > 60 mL/min (>60); GLUCOSE,RANDOM 95 mg/dL (70-110); POTASSIUM 4.3 mmol/L (3.5-5.1); SODIUM SERUM 137 mmol/L (136-145); UREA NITROGEN, BLOOD 12 mg/dL (7-18)
[2019-07-12 12:32] LABS: ALANINE AMINOTRANSFERASE 25 U/L (12-78); ALBUMIN 3.7 g/dL (3.4-5.0); ALKALINE PHOSPHATASE 94 U/L (46-116); ASPARTATE AMINOTRANSFERASE 39 U/L (15-37); BILIRUBIN,TOTAL 0.9 mg/dL (0.1-1.0); LIPASE 76 U/L (73-393); TOTAL PROTEIN, SERUM 7.5 g/dL (6.4-8.2)
[2019-07-12 12:50] LABS: LACTIC ACID 3.1 mmol/L (0.4-2.0)
[2019-07-12] MEDS ORDERED: CefTRIAXone 1 GM/DEXTROSE 50 ML IV ONE (13:00)
[2019-07-12] MEDS ORDERED: ALBUTEROL SULFATE 2.5 MG/0.5 ML NEB SOLUTION NEB ONE (13:00)
[2019-07-12] MEDS ORDERED: DOXYCYCLINE HYCLATE 100 MG in DEXTROSE 5%-WATER 100 ML IV ONE (13:00)
[2019-07-12] MEDS ORDERED: MethylPREDNISolone SOD SUCC 125 MG/2 ML VIAL IVP ONE (13:00)
[2019-07-12] MEDS ORDERED: IPRATROPIUM BROMIDE 0.5 MG/2.5 ML NEB SOLUTION NEB ONE (13:00)
[2019-07-12] MEDS ORDERED: SODIUM CHLORIDE 0.9% 250 ML IV ONE (13:30)
[2019-07-12] MEDS ORDERED: SODIUM CHLORIDE 0.9% 1,000 ML IV ONE (13:30)
[2019-07-12 13:31] LABS: ABG A-A DIFF O2 43.4 mmHg (10-20.0); ABG BASE EXCESS 1.4 mmol/L (-2.0-3.0); ABG HCO3 25.3 mmol/L (22.0-26.0); ABG METHEMOGLOBIN 0.1 % (0.0-1.5); ABG OXYGEN CONTENT 17.9 mL/dL (15.0-23.0); ABG OXYGEN SATURATION 88.9 % (95.0-98.0); ABG OXYHEMOGLOBIN 86.1 % (94.0-100.0); ABG PCO2 42 mmHg (35-45); ABG PH 7.414 (7.35-7.450); ABG TOTAL HEMOGLOBIN 14.8 G/dL (12.0-18.0); PO2, ARTERIAL BG 56.6 mmHg (84.0-92.0); SOURCE, BLOOD GAS ARTERIAL; TEMPERATURE, FAHRENHEIT, BG 98.6 FAHREN (96.0-98.6)
[2019-07-12 13:32] LABS: O2 DEVICE,BLOOD GAS ROOM AIR (ROOM AIR); SITE, BLOOD GAS RT RADIAL
[2019-07-12] MEDS ORDERED: SODIUM CHLORIDE 0.9% 0 ML ONE (13:36)
[2019-07-12] MEDS ORDERED: IOVERSOL 350 MG/ML 100 ML VIAL ONE (13:36)
[2019-07-12] MEDS ORDERED: ACETAMINOPHEN 325 MG TABLET PO PRN ×2 (15:00)
[2019-07-12] MEDS ORDERED: ZOLPIDEM TARTRATE 5 MG TABLET PO PRN (15:00)
[2019-07-12] MEDS ORDERED: 0.9% SODIUM CHLORIDE 10 ML SYRINGE IVP PRN (15:00)
[2019-07-12] MEDS ORDERED: ALBUTEROL SULFATE 2.5 MG/0.5 ML NEB SOLUTION NEB PRN (15:00)
[2019-07-12] MEDS ORDERED: LORazepam 2 MG/ML VIAL IVP PRN (15:00)
[2019-07-12] MEDS ORDERED: ONDANSETRON HCL 4 MG/2 ML VIAL IVP PRN ×2 (15:00)
[2019-07-12] MEDS ORDERED: DOCUSATE SODIUM 100 MG CAPSULE PO PRN (15:00)
[2019-07-12] MEDS: ChlordiazePOXIDE HCL 10 MG CAPSULE PO SCH ×2 (16:00→23:19)
[2019-07-12] MEDS: MethylPREDNISolone SOD SUCC 40 MG/ML VIAL IVP SCH ×2 (16:13→23:19)
[2019-07-12] MEDS: MULTIVITAMINS WITH MINERALS, THERAPEUTIC TABLET PO SCH (16:14)
[2019-07-12 19:30] VITALS: BP 117/68
[2019-07-12] MEDS: FAMOTIDINE 20 MG TABLET PO SCH (23:19)
[2019-07-12 23:58] VITALS: BP 111/72
[2019-07-13 06:13] VITALS: BP 101/65
[2019-07-13 07:45] VITALS: BP 108/75
[2019-07-13] MEDS: FAMOTIDINE 20 MG TABLET PO SCH ×2 (09:02→20:19)
[2019-07-13] MEDS: MethylPREDNISolone SOD SUCC 40 MG/ML VIAL IVP SCH ×2 (09:02→17:28)
[2019-07-13] MEDS: ChlordiazePOXIDE HCL 10 MG CAPSULE PO SCH ×2 (09:02→17:28)
[2019-07-13] MEDS: MULTIVITAMINS WITH MINERALS, THERAPEUTIC TABLET PO SCH (09:02)
[2019-07-13] MEDS ORDERED: MAGNESIUM OXIDE 400 MG TABLET PO PRN (11:00)
[2019-07-13] MEDS ORDERED: MAGNESIUM SULFATE 4 GM/WATER 100 ML IV PRN (11:00)
[2019-07-13] MEDS ORDERED: MAGNESIUM SULFATE 2 GM/WATER 50 ML IV PRN (11:00)
[2019-07-13 11:44] VITALS: BP 101/65
[2019-07-13 11:50] LABS: ALBUMIN 2.9 g/dL (3.4-5.0); MAGNESIUM 1.4 mg/dL (1.80-2.40)
[2019-07-13 13:46] LABS: APPEARANCE,URINE CLEAR (CLEAR); BILIRUBIN,URINE NEGATIVE (NEGATIVE); GLUCOSE, URINE (UA) 250 mg/dL (NEGATIVE); KETONES,URINE 40 mg/dL (NEGATIVE); LEUKOCYTE ESTERASE ,URINE NEGATIVE (NEGATIVE); NITRATE,URINE NEGATIVE (NEGATIVE); OCCULT BLOOD,URINE NEGATIVE (NEGATIVE); PH,URINE 7.5 (5.0-8.0); PROTEIN,URINE POS 1+ (NEGATIVE); UROBILINOGEN,URINE 0.2 mg/dL (<=1.0)
[2019-07-13 13:51] LABS: AMPHET/METH SCREEN,URINE NEGATIVE (NEGATIVE); BARBITURATE SCREEN, URINE POSITIVE (NEGATIVE); BENZODIAZEPINES SCREEN,URINE POSITIVE (NEGATIVE); CANNABINOID SCREEN,URINE NEGATIVE (NEGATIVE); COCAINE SCREEN,URINE NEGATIVE (NEGATIVE); METHADONE SCREEN, URINE NEGATIVE (NEGATIVE); OPIATE SCREEN,URINE NEGATIVE (NEGATIVE); PHENCYCLIDINE SCREEN,URINE NEGATIVE (NEGATIVE)
[2019-07-13 14:07] LABS: BACTERIA,URINE None Seen /HPF (None Seen); RBC,URINE None Seen /HPF (0-2); SQUAMOUS EPITHELIAL CELL,UR Few /LPF (None Seen); WBC,URINE 0-2 /HPF (0-5)
[2019-07-13 16:41] VITALS: BP 102/61
[2019-07-13] MEDS ORDERED: SODIUM CHLORIDE 0.9% 250 ML IV ONE (18:48)
[2019-07-13 19:44] VITALS: BP 119/89
[2019-07-13 23:54] VITALS: BP 98/67
[2019-07-14] MEDS: MethylPREDNISolone SOD SUCC 40 MG/ML VIAL IVP SCH ×2 (00:35→08:21)
[2019-07-14] MEDS: ChlordiazePOXIDE HCL 10 MG CAPSULE PO SCH ×2 (00:35→08:21)
[2019-07-14 05:28] VITALS: BP 90/62
[2019-07-14 08:02] VITALS: BP 101/66
[2019-07-14] MEDS: FAMOTIDINE 20 MG TABLET PO SCH (08:21)
[2019-07-14] MEDS: MULTIVITAMINS WITH MINERALS, THERAPEUTIC TABLET PO SCH (08:21)
[2019-07-14 12:33] VITALS: BP 122/82
[2019-07-14 12:37] LABS: BASOPHILS % (AUTO) 0.2 % (0.0-2.0); EOSINOPHILS % (AUTO) 0 % (1.0-6.0); HEMATOCRIT 45.2 % (41-53); LYMPHOCYTES # (AUTO) 0.6 K/uL (1.0-4.8); LYMPHOCYTES % (AUTO) 4.8 % (22.0-44.0); MEAN CORPUSCULAR HEMOGLOBIN 30.5 pg (26.0-34.0); MEAN CORPUSCULAR HGB CONC 33.2 G/dL (31.0-37.0); MEAN CORPUSCULAR VOLUME 92 fL (80-100); MONOCYTES # (AUTO) 0.3 K/uL (0.1-1.0); MONOCYTES % (AUTO) 2.7 % (2.0-9.0); NEUTROPHILS # (AUTO) 11.6 K/uL (1.8-7.7); PLATELET COUNT (AUTO) 231 K/uL (150-450); RED BLOOD CELL COUNT(AUTO) 4.92 MIL/uL (4.50-5.90); RED CELL DISTRIBUTION WIDTH 13.9 % (11.5-14.5)
[2019-07-14 12:39] LABS: NEUTROPHILS % (AUTO) 92.3 % (40.0-70.0)
[2019-07-14 12:40] LABS: ANION GAP 16 mmol/L (8-16); CALCIUM, TOTAL 8.5 mg/dL (8.8-10.5); CARBON DIOXIDE 20 mmol/L (22-29); CHLORIDE 103 mmol/L (98-107); CREATININE 0.71 mg/dL (0.60-1.30); GLOMERULAR FILTR. RATE CALC > 60 mL/min (>60); GLUCOSE,RANDOM 154 mg/dL (70-110); POTASSIUM 4.1 mmol/L (3.5-5.1); SODIUM SERUM 139 mmol/L (136-145); UREA NITROGEN, BLOOD 15 mg/dL (7-18)
[2019-07-14] MEDS ORDERED: MULT-1192 PO (14:00)
[2019-07-14] MEDS ORDERED: MAGN200T8 PO (14:01)
== END 2019-07-14 15:00 | disposition home or self-care (01) | DRG 140 ==
LOC: EMS 11:08 → 4E 18:17
PROVIDERS: ADMIT Internal Medicine; ATTEND Internal Medicine
DX: J44.1 Chronic obstructive pulmonary disease with (acute) exacerbation (principal); R45.851 Suicidal ideations; E44.0 Moderate protein-calorie malnutrition; F25.9 Schizoaffective disorder, unspecified; F10.239 Alcohol dependence with withdrawal, unspecified; J44.0 Chronic obstructive pulmonary disease with (acute) lower respiratory infection; Z91.19 Patient's noncompliance with other medical treatment and regimen; F17.200 Nicotine dependence, unspecified, uncomplicated; K21.9 Gastro-esophageal reflux disease without esophagitis; Z82.49 Family history of ischemic heart disease and other diseases of the circulatory system; F32.9 Major depressive disorder, single episode, unspecified; Z79.899 Other long term (current) drug therapy
CPT/HCPCS: 36600; 80307; 82805; 83605; 83735; 87040; 93005; 94060; 94640; 99291; G0378; G0480; J0696; J2060; J2405; J2920; J2930; J3411; J3475; J3490; J7030; J7050; J7060

== ENCOUNTER 2020-07-21 00:06 | Emergency (ER) | payer OTHER ==
[~2020-07-21] VITALS: Ht 167.6 cm; Wt 56.8 kg
[~2020-07-21 00:06] MED LIST changes: -CITA-106 PO; +CITA-144 PO; +MAGN200T8 PO; +MULT-1192 PO
[2020-07-21 00:59] LABS: BASOPHILS % (AUTO) 0.8 % (0.0-2.0); EOSINOPHILS % (AUTO) 0.6 % (1.0-6.0); HEMATOCRIT 50.9 % (41-53); HEMOGLOBIN 17.5 g/dL (13.5-17.5); LYMPHOCYTES # (AUTO) 1.8 K/uL (1.0-4.8); LYMPHOCYTES % (AUTO) 24.5 % (22.0-44.0); MEAN CORPUSCULAR HEMOGLOBIN 30.8 pg (26.0-34.0); MEAN CORPUSCULAR HGB CONC 34.4 G/dL (31.0-37.0); MEAN CORPUSCULAR VOLUME 90 fL (80-100); MONOCYTES # (AUTO) 0.6 K/uL (0.1-1.0); NEUTROPHILS % (AUTO) 66.1 % (40.0-70.0); PLATELET COUNT (AUTO) 278 K/uL (150-450); RED BLOOD CELL COUNT(AUTO) 5.68 MIL/uL (4.50-5.90); RED CELL DISTRIBUTION WIDTH 13.4 % (11.5-14.5)
[2020-07-21 01:09] LABS: ANION GAP 13 mmol/L (8-16); CALCIUM, TOTAL 8.5 mg/dL (8.8-10.5); CARBON DIOXIDE 27 mmol/L (22-29); CHLORIDE 101 mmol/L (98-107); CREATININE 0.78 mg/dL (0.60-1.30); GLOMERULAR FILTR. RATE CALC > 60 mL/min (>60); GLUCOSE,RANDOM 119 mg/dL (70-110); POTASSIUM 3.7 mmol/L (3.5-5.1); SODIUM SERUM 141 mmol/L (136-145); UREA NITROGEN, BLOOD 14 mg/dL (7-18)
[2020-07-21 01:14] LABS: ALANINE AMINOTRANSFERASE 36 U/L (12-78); ALBUMIN 4.1 g/dL (3.4-5.0); ALKALINE PHOSPHATASE 111 U/L (46-116); ASPARTATE AMINOTRANSFERASE 55 U/L (15-37); BILIRUBIN,TOTAL 0.4 mg/dL (0.1-1.0); TOTAL PROTEIN, SERUM 7.3 g/dL (6.4-8.2)
[2020-07-21 06:09] VITALS: BP 121/71
== END 2020-07-21 06:09 | disposition home or self-care (01) ==
LOC: EMS 00:08
DX: K70.30 Alcoholic cirrhosis of liver without ascites (principal); F10.229 Alcohol dependence with intoxication, unspecified; F43.10 Post-traumatic stress disorder, unspecified; K21.9 Gastro-esophageal reflux disease without esophagitis; F17.210 Nicotine dependence, cigarettes, uncomplicated; Z79.899 Other long term (current) drug therapy; Z91.030 Bee allergy status
CPT/HCPCS: G0480

== ENCOUNTER 2020-11-19 19:55 | Inpatient (IN) | payer OTHER ==
[~2020-11-19] VITALS: Ht 177.8 cm; Wt 58.8 kg
[2020-11-19] MEDS ORDERED: DIAZEPAM 5 MG/ML 2 ML SYRINGE IVP ONE (20:30)
[2020-11-19] MEDS ORDERED: SODIUM CHLORIDE 0.9% 1,000 ML IV ONE (20:30)
[2020-11-19] MEDS ORDERED: ONDANSETRON HCL 4 MG/2 ML VIAL IVP ONE (20:30)
[2020-11-19] MEDS ORDERED: ACETAMINOPHEN 325 MG TABLET PO PRN (21:15)
[2020-11-19] MEDS ORDERED: DIAZEPAM 5 MG/ML 2 ML SYRINGE IVP PRN (21:15)
[2020-11-19] MEDS ORDERED: ONDANSETRON HCL 4 MG/2 ML VIAL IVP PRN (21:15)
[2020-11-19] MEDS ORDERED: ZOLPIDEM TARTRATE 5 MG TABLET PO PRN (22:30)
[2020-11-19] MEDS ORDERED: MAGNESIUM HYDROXIDE SUSPENSION 30 ML UDCUP PO PRN (22:30)
[2020-11-19] MEDS ORDERED: BISACODYL 10 MG RECTAL RECTAL SUPPOSITORY PR PRN (22:30)
[2020-11-19] MEDS ORDERED: ALBUTEROL SULFATE 2.5 MG/0.5 ML NEB SOLUTION NEB PRN (22:30)
[2020-11-19] MEDS ORDERED: IPRATROPIUM BROMIDE 0.5 MG/2.5 ML NEB SOLUTION NEB PRN (22:30)
[2020-11-19] MEDS ORDERED: MORPHINE SULFATE 2 MG/ML SYRINGE IVP PRN (22:30)
[2020-11-19] MEDS: SODIUM CHLORIDE 0.45% 1,000 ML IV SCH (23:19)
[2020-11-19] MEDS: ChlordiazePOXIDE HCL 25 MG CAPSULE PO SCH (23:19)
[2020-11-19] MEDS: ONDANSETRON HCL 4 MG/2 ML VIAL IVP PRN (23:19)
[2020-11-20] MEDS: HEPARIN SODIUM,PORCINE 5,000 UNITS/ML VIAL SQ SCH ×4 (00:56→23:25)
[2020-11-20] MEDS: LORazepam 2 MG/ML VIAL IVP PRN ×4 (01:12→20:24)
[2020-11-20] MEDS: ChlordiazePOXIDE HCL 25 MG CAPSULE PO SCH ×4 (05:16→23:24)
[2020-11-20] MEDS: OLANZapine 5 MG TABLET PO SCH (09:00)
[2020-11-20] MEDS: DOCUSATE SODIUM 100 MG CAPSULE PO SCH ×2 (09:00→20:26)
[2020-11-20] MEDS: MULTIVITAMINS, THERAPEUTIC TABLET PO SCH ×2 (09:00→13:05)
[2020-11-20] MEDS: FOLIC ACID 1 MG TABLET PO SCH (09:00)
[2020-11-20] MEDS: MAGNESIUM OXIDE 400 MG TABLET PO SCH (09:00)
[2020-11-20 10:04] VITALS: BP 130/85
[2020-11-20] MEDS: CITALOPRAM HYDROBROMIDE 20 MG TABLET PO SCH (11:00)
[2020-11-20 11:14] VITALS: BP 110/72
[2020-11-20] MEDS: THIAMINE 100 MG TABLET PO SCH (13:05)
[2020-11-20] MEDS: SODIUM CHLORIDE 0.45% 1,000 ML IV SCH (15:42)
[2020-11-20 15:50] VITALS: BP 127/73
[2020-11-20] MEDS: ONDANSETRON HCL 4 MG/2 ML VIAL IVP PRN (19:05)
[2020-11-20 19:52] VITALS: BP 111/71
[2020-11-20] MEDS: OLANZapine 10 MG TABLET PO SCH (20:26)
[2020-11-20 23:46] VITALS: BP 104/64
[2020-11-21 04:06] VITALS: BP 117/74
[2020-11-21] MEDS: SODIUM CHLORIDE 0.45% 1,000 ML IV SCH ×2 (05:09→17:40)
[2020-11-21] MEDS: ChlordiazePOXIDE HCL 25 MG CAPSULE PO SCH ×3 (06:43→18:00)
[2020-11-21 07:32] VITALS: BP 117/73
[2020-11-21] MEDS: HEPARIN SODIUM,PORCINE 5,000 UNITS/ML VIAL SQ SCH ×2 (08:08→16:41)
[2020-11-21] MEDS: THIAMINE 100 MG TABLET PO SCH (08:09)
[2020-11-21] MEDS: HYDROCODONE/ACETAMINOPHEN 5-325 MG TABLET PO PRN ×2 (08:13→16:41)
[2020-11-21] MEDS: DOCUSATE SODIUM 100 MG CAPSULE PO SCH ×2 (09:00→21:00)
[2020-11-21] MEDS: MAGNESIUM OXIDE 400 MG TABLET PO SCH (09:00)
[2020-11-21] MEDS: OLANZapine 5 MG TABLET PO SCH (09:00)
[2020-11-21] MEDS: FOLIC ACID 1 MG TABLET PO SCH (09:00)
[2020-11-21] MEDS: MULTIVITAMINS, THERAPEUTIC TABLET PO SCH ×2 (09:00)
[2020-11-21] MEDS: CITALOPRAM HYDROBROMIDE 20 MG TABLET PO SCH (09:00)
[2020-11-21 12:06] VITALS: BP 98/63
[2020-11-21 15:59] VITALS: BP 91/60
[2020-11-21 19:52] VITALS: BP 92/61
[2020-11-21] MEDS: OLANZapine 10 MG TABLET PO SCH (21:03)
[2020-11-22] VITALS (7 sets, daily range): BP systolic 92–109; BP diastolic 60–74
[2020-11-22] MEDS: ChlordiazePOXIDE HCL 25 MG CAPSULE PO SCH ×5 (00:58→23:46)
[2020-11-22] MEDS: SODIUM CHLORIDE 0.45% 1,000 ML IV SCH ×2 (06:09→20:33)
[2020-11-22] MEDS: MAGNESIUM OXIDE 400 MG TABLET PO SCH (08:09)
[2020-11-22] MEDS: THIAMINE 100 MG TABLET PO SCH (08:09)
[2020-11-22] MEDS: CITALOPRAM HYDROBROMIDE 20 MG TABLET PO SCH (08:09)
[2020-11-22] MEDS: HEPARIN SODIUM,PORCINE 5,000 UNITS/ML VIAL SQ SCH ×4 (08:09→23:47)
[2020-11-22] MEDS: FOLIC ACID 1 MG TABLET PO SCH (08:09)
[2020-11-22] MEDS: DOCUSATE SODIUM 100 MG CAPSULE PO SCH ×2 (08:10→20:33)
[2020-11-22] MEDS: OLANZapine 5 MG TABLET PO SCH (08:11)
[2020-11-22] MEDS: MULTIVITAMINS, THERAPEUTIC TABLET PO SCH ×2 (08:11→08:17)
[2020-11-22] MEDS: HYDROCODONE/ACETAMINOPHEN 5-325 MG TABLET PO PRN (08:16)
[2020-11-22] MEDS: ACETAMINOPHEN 325 MG TABLET PO PRN (17:34)
[2020-11-22] MEDS: OLANZapine 10 MG TABLET PO SCH (20:33)
[2020-11-22 21:48] LABS: AMYLASE 68 U/L (25-115); LIPASE 549 U/L (73-393)
[2020-11-23 04:45] VITALS: BP 112/70
[2020-11-23] MEDS: ChlordiazePOXIDE HCL 25 MG CAPSULE PO SCH ×2 (06:23→12:00)
[2020-11-23 07:38] VITALS: BP 113/71
[2020-11-23] MEDS: SODIUM CHLORIDE 0.45% 1,000 ML IV SCH (08:46)
[2020-11-23] MEDS: THIAMINE 100 MG TABLET PO SCH (08:46)
[2020-11-23] MEDS: HEPARIN SODIUM,PORCINE 5,000 UNITS/ML VIAL SQ SCH (08:46)
[2020-11-23] MEDS: DOCUSATE SODIUM 100 MG CAPSULE PO SCH (08:47)
[2020-11-23] MEDS: FOLIC ACID 1 MG TABLET PO SCH (08:47)
[2020-11-23] MEDS: MULTIVITAMINS, THERAPEUTIC TABLET PO SCH (08:47)
[2020-11-23] MEDS: CITALOPRAM HYDROBROMIDE 20 MG TABLET PO SCH (08:47)
[2020-11-23] MEDS: MAGNESIUM OXIDE 400 MG TABLET PO SCH (08:50)
[2020-11-23] MEDS: ACETAMINOPHEN 325 MG TABLET PO PRN (08:56)
[2020-11-23] MEDS: OLANZapine 5 MG TABLET PO SCH (09:20)
[2020-11-23 11:25] VITALS: BP 106/68
[2020-11-23] MEDS ORDERED: FOLI0.4T6 PO (12:06)
[2020-11-23] MEDS ORDERED: THIA100T80 PO (12:07)
== END 2020-11-23 14:40 | disposition home or self-care (01) | DRG 775 ==
LOC: EMS 21:18 → 5S 11-20 07:45
PROVIDERS: ADMIT Hospitalist; ATTEND Hospitalist
DX: F10.239 Alcohol dependence with withdrawal, unspecified (principal); F20.9 Schizophrenia, unspecified; F17.210 Nicotine dependence, cigarettes, uncomplicated; F31.9 Bipolar disorder, unspecified; K21.9 Gastro-esophageal reflux disease without esophagitis; F41.9 Anxiety disorder, unspecified; Z82.49 Family history of ischemic heart disease and other diseases of the circulatory system; Z91.030 Bee allergy status; Z79.899 Other long term (current) drug therapy
CPT/HCPCS: 99285; J1644; J2060; J2405; J7030

== ENCOUNTER → 2020-11-19 | Emergency (ER) | payer OTHER ==
[~2020-11-19] VITALS: Ht 177.8 cm; Wt 65.9 kg
[2020-11-19 13:08] VITALS: BP 127/88
[2020-11-19 14:12] LABS: COVID AG,FIA SOURCE NASOPHARYNGEAL
[2020-11-19 14:29] LABS: BASOPHILS % (AUTO) 1.7 % (0.0-2.0); EOSINOPHILS % (AUTO) 0.6 % (1.0-6.0); HEMATOCRIT 43.1 % (41-53); HEMOGLOBIN 14.3 g/dL (13.5-17.5); LYMPHOCYTES # (AUTO) 1.2 K/uL (1.0-4.8); LYMPHOCYTES % (AUTO) 34.5 % (22.0-44.0); MEAN CORPUSCULAR HEMOGLOBIN 30.6 pg (26.0-34.0); MEAN CORPUSCULAR HGB CONC 33.1 G/dL (31.0-37.0); MEAN CORPUSCULAR VOLUME 92 fL (80-100); MONOCYTES # (AUTO) 0.5 K/uL (0.1-1.0); MONOCYTES % (AUTO) 13.4 % (2.0-9.0); NEUTROPHILS # (AUTO) 1.7 K/uL (1.8-7.7); NEUTROPHILS % (AUTO) 49.8 % (40.0-70.0); PLATELET COUNT (AUTO) 202 K/uL (150-450); RED BLOOD CELL COUNT(AUTO) 4.66 MIL/uL (4.50-5.90); RED CELL DISTRIBUTION WIDTH 16.8 % (11.5-14.5)
[2020-11-19 14:30] LABS: AMPHET/METH SCREEN,URINE NEGATIVE (NEGATIVE); BARBITURATE SCREEN, URINE NEGATIVE (NEGATIVE); BENZODIAZEPINES SCREEN,URINE NEGATIVE (NEGATIVE); CANNABINOID SCREEN,URINE NEGATIVE (NEGATIVE); COCAINE SCREEN,URINE NEGATIVE (NEGATIVE); METHADONE SCREEN, URINE NEGATIVE (NEGATIVE); OPIATE SCREEN,URINE NEGATIVE (NEGATIVE)
[2020-11-19 14:32] LABS: PHENCYCLIDINE SCREEN,URINE NEGATIVE (NEGATIVE)
[2020-11-19 14:59] LABS: ANION GAP 11 mmol/L (8-16); CALCIUM, TOTAL 8.6 mg/dL (8.8-10.5); CARBON DIOXIDE 30 mmol/L (22-29); CHLORIDE 100 mmol/L (98-107); CREATININE 0.83 mg/dL (0.60-1.30); GLOMERULAR FILTR. RATE CALC > 60 mL/min (>60); GLUCOSE,RANDOM 103 mg/dL (70-110); POTASSIUM 3.8 mmol/L (3.5-5.1); SODIUM SERUM 141 mmol/L (136-145); UREA NITROGEN, BLOOD 4 mg/dL (7-18)
[2020-11-19 15:04] LABS: ALANINE AMINOTRANSFERASE 136 U/L (12-78); ALBUMIN 3.4 g/dL (3.4-5.0); ALKALINE PHOSPHATASE 93 U/L (46-116); ASPARTATE AMINOTRANSFERASE 95 U/L (15-37); BILIRUBIN,TOTAL 0.3 mg/dL (0.1-1.0); TOTAL PROTEIN, SERUM 7.1 g/dL (6.4-8.2)
== END | disposition home or self-care (01) ==
LOC: EMS 12:14
DX: F25.1 Schizoaffective disorder, depressive type (principal); F10.10 Alcohol abuse, uncomplicated; Y90.8 Blood alcohol level of 240 mg/100 ml or more; F17.210 Nicotine dependence, cigarettes, uncomplicated; Z91.030 Bee allergy status; Z79.899 Other long term (current) drug therapy; Z20.822 Contact with and (suspected) exposure to COVID-19
CPT/HCPCS: 36415; 80053; 80307; 85025; 87426; 99284; G0480